=== PATIENT | female | born 1940 | race Caucasian/White ===

== ENCOUNTER 2016-11-21 15:49 | Inpatient (IN) | payer OTHER, MEDICARE ==
[~2016-11-21] VITALS: Ht 165.1 cm; Wt 86.6 kg
--- NOTE | 2016-11-21 16:00 | NUR ---
PT TO ED FROM DR. MEZA OFFICE FOR A 15 LB WEIGHT GAIN AND INCREASING SOB OVER THE PAST 2 WEEKS, HX OF CHF. REPORTING LOGAN INCREASED LASIX AND COUMADIN (COUMADIN DUE TO SUBTHERAPEUTIC INR) AND HAS NOT IMPROVED. PT WEARS HOME 02 AT BASELINE, HAS RECENTLY HAD TO INCREASE IT FROM 2-3LPM INTERMITTENT TO 5 LPM INTERMITTENT, REPORTING HER BASELINE 02 SAT IS USUALLY BETWEEN "90 AND 92".
--- NOTE | 2016-11-21 17:00 | NUR ---
BLOODWORK OBTAINED/SENT TO LAB. PT RESTING COMFORTABLY ON STRETCHER AT PRESENT. DAUGHTER AT BEDSIDE.
[2016-11-21] MEDS ORDERED: FUROSEMIDE40 M1 PO (17:01)
[2016-11-21] MEDS ORDERED: GEMFIBROZIL600 M1 PO (17:03)
[2016-11-21] MEDS ORDERED: HYDROCORTISO453.6 G2 TOP (17:04)
[2016-11-21] MEDS ORDERED: METOPROLOL TAR100 M1 PO (17:04)
[2016-11-21] MEDS ORDERED: LEVOTHYROXINE50 MCG PO (17:04)
[2016-11-21] MEDS ORDERED: COUMADIN5 M2 PO (17:05)
[2016-11-21] MEDS ORDERED: POTASSIUM CHLO20 ME2 PO (17:05)
[2016-11-21] MEDS ORDERED: ZETIA10 M1 PO (17:16)
--- NOTE | 2016-11-21 17:19 | ED DYSPNEA/ASTHMA COMPLAINT ---
History of Present Illness General Chief Complaint: Dyspnea (COPD, CHF, Other) Stated Complaint: SIB DR FORD FOR DIFF BREATHING, +15LBS [id number] Source: patient, family, old records Exam Limitations: no limitations Vital Signs & Intake/Output Vital Signs & Intake/Output Vital Signs Date Time Temp Pulse Resp B/P Pulse O2 O2 Flow FiO2 Ox Delivery Rate 11/21 1931 98.3 97 18 125/89 97 Nasal 4.0L Cannula 11/21 1742 98.7 80 18 112/73 91 Nasal 2.0L Cannula 11/21 1700 96 Nasal 2.0L Cannula 11/21 1600 98.9 81 20 110/74 90 Nasal 5.0L Cannula Allergies Coded Allergies: cefaclor (ANAPHYLAXIS 11/21/16) rabbit dander (THROAT STARTS TO CLOSE, ITCHY EYES, ITCHY NOSE 11/21/16) Reconcile Medications Ezetimibe (Zetia) 10 MG TABLET 1 TAB PO DAILY CHOLESTEROL (Reported) Furosemide 40 MG TABLET 1 TAB PO BID DIURETIC (Reported) Gemfibrozil 600 MG TABLET 1 TAB PO BID CHOLESTEROL (Reported) Levothyroxine Sodium (Unknown Strength) TABLET (Unknown Dose) PO DAILY THYROID (Reported) Metoprolol Tartrate 100 MG TABLET 0.5 TAB PO BID HEART/BP (Reported) Potassium Chloride 20 MEQ TAB.ER.PRT 1 TAB PO DAILY SUPPLEMENT (Reported) Warfarin Sodium (Coumadin) 5 MG TABLET 1 TAB PO DAILY BLOOD THINNER (Reported ) Triage Note: PT TO ED FROM DR. MEZA OFFICE FOR A 15 LB WEIGHT GAIN AND INCREASING SOB OVER THE PAST 2 WEEKS, HX OF CHF. REPORTING LOGAN INCREASED LASIX AND COUMADIN (COUMADIN DUE TO SUBTHERAPEUTIC INR) AND HAS NOT IMPROVED. PT WEARS HOME 02 AT BASELINE, HAS RECENTLY HAD TO INCREASE IT FROM 2-3LPM INTERMITTENT TO 5 LPM INTERMITTENT, REPORTING HER BASELINE 02 SAT IS USUALLY BETWEEN "90 AND 92". Triage Nurses Notes Reviewed? yes Onset: Abrupt Duration: week(s): (2), changing over time, getting worse Timing: recent history Severity: moderate, severe HPI: 76-year-old female comes into emergency room for further evaluation of increasing shortness of breath and weight gain over last 2 weeks. Patient has gained 15 pounds. History of A. fib and valvular problems and COPD. Patient is on 2-2-1/2 L of oxygen normally. Patient reports that when she gets up and ambulates she feels extremely winded and tired and her O2 saturation dropped down to 79%. This is not typical for her. Denies any chest pain. Denies any fever chills. Denies any vomiting. Denies any other associated symptoms. Patient feels swelling in her legs bilaterally as well as in her abdomen. (JODIE BARRERA) Past History Travel History Traveled to [place] past 21 day No Medical History Any Pertinent Medical History? see below for history Cardiovascular: AFIB, CHF, MITRAL VALVE REPLACEMENT Respiratory: COPD History of MRSA: No History of VRE: No History of CDIFF: No Surgical History Surgical History: non-contributory Psychosocial History Who do you live with Patient/Self Services at Home [facility] What is your primary language South African Tobacco Use: Current Not Daily Daily Tobacco Use Amount/Type: =< 4 Cigarettes daily ETOH Use: denies use Illicit Drug Use: denies illicit drug use Family History Family History, If Any: Relation not specified for: No family history of disorders Hx Contributory? No (OJDIE BARRERA) Review of Systems Review of Systems Constitutional: Reports: no symptoms. EENTM: Reports: no symptoms. Respiratory: Reports: see HPI. Cardiovascular: Reports: no symptoms. GI: Reports: no symptoms. Genitourinary: Reports: no symptoms. Musculoskeletal: Reports: no symptoms. Skin: Reports: see HPI. Neurological/Psychological: Reports: no symptoms. Hematologic/Endocrine: Reports: no symptoms. Immunologic/Allergic: Reports: no symptoms. All Other Systems: Reviewed and Negative (JODIE BARRERA) Physical Exam Physical Exam General Appearance: well developed/nourished, alert, awake Head: atraumatic, normal appearance Eyes: Bilateral: normal appearance, EOMI. Ears, Nose, Throat: normal ENT inspection, hearing grossly normal Neck: normal inspection Respiratory: decreased breath sounds, respiratory distress (mild) Cardiovascular: irregularly irregular Gastrointestinal: soft Extremities: normal inspection, normal range of motion Neurologic/Psych: awake, alert, oriented x 3 Skin: intact, normal color Core Measures ACS in differential dx? Yes Severe Sepsis Present: No Septic Shock Present: No (JODIE BARRERA) Progress Differential Diagnosis: asthma, AMI, bronchitis, costochondritis, CHF, COPD, musculoskeletal pain, pericarditis, pulmonary embolism, pneumonia, pneumothorax, rib fracture, unstable angina Plan of Care: Orders Procedure Date/time Status Patient Data 11/21 2022 Active PARTIAL THROMBOPLASTIN TIME 11/21 185 Complete PROTHROMBIN TIME 11/21 185 Complete Add-on Test (ER Only) 11/21 1849 Active TROPONIN LEVEL 11/21 165 Complete COMPREHENSIVE METABOLIC PANEL 11/21 165 Complete CBC WITHOUT DIFFERENTIAL 11/21 165 Complete B-TYPE NATRIURETIC PEP (BNP) 11/21 165 Complete EKG 11/21 1551 Active Laboratory Tests 11/21/16 1920: PT 31.8 H, INR 3.06 H, APTT 46 H 11/21/16 1818: Anion Gap 13, Estimated GFR > 60, BUN/Creatinine Ratio 20.0, Glucose 82, Calcium 9.4, Total Bilirubin 2.7 H, AST 33, ALT 28, Alkaline Phosphatase 113, Troponin I 0.01, Zyt-P-Thwwatqrbwz Pept 5770 H, Total Protein 7.4, Albumin 3.9, Globulin 3.5, Albumin/Globulin Ratio 1.1 11/21/16 1730: CBC w Diff NO MAN DIFF REQ, RBC 4.46, MCV 93.4, MCH 30.7, RDW 16.6 H, MPV 8.1, Gran % 69.8, Lymphocytes % 17.1 L, Monocytes % 11.5 H, Eosinophils % 1.3, Basophils % 0.3, Absolute Granulocytes 5.2, Absolute Lymphocytes 1.3, Absolute Monocytes 0.9 H, Absolute Eosinophils 0.1, Absolute Basophils 0, PUBS MCHC 32.8 L Diagnostic Imaging: Viewed by Me: Radiology Read. Discussed w/RAD: Radiology Read. Radiology Impression: EXAM TYPE: RAD - XRY-PORTABLE CHEST XRAY EXAMINATION: XR PORTABLE CHEST CLINICAL INFORMATION: History of mitral valve replacement. History of pulmonary stenosis. Now shortness of breath. COMPARISON: CT of the chest done 06/21/2016. Last chest x-ray done 01/20/2016. TECHNIQUE: Portable AP semierect view of the chest was obtained. FINDINGS: The heart remains enlarged. The thoracic aorta is tortuous. A mitral valve annuloplasty is present. Sternotomy wires are in place. Emphysematous changes are seen in the upper lobes. Pulmonary vascularity is unchanged. There is no evidence of pulmonary edema or pleural effusion. IMPRESSION: Cardiomegaly. No evidence of cardiac failure. DICTATED BY: MIKALA HUBER MD DATE/TIME DICTATED:11/21/161713 HADOOP CONSULTANT:TRAVIS DATE/TIME TRANSCRIBED:11/21/161713 Initial ED EKG: rate (100), AFIB (JODIE BARRERA) Departure Departure Disposition: STILL A PATIENT Condition: Stable Clinical Impression Primary Impression: CHF exacerbation Secondary Impressions: Hypoxia Referrals: VARSHA CORDERO MD (PCP/Family) Departure Forms: Customer Survey General Discharge Information Admission Note Spoke With: LOGAN BAKER PhD,DEEDEE Silva Documentation of Exam: Documentation of any treatments & extenuating circumstances including Concerns Regarding Discharge (functional status, medication knowledge or non-compliance, living conditions, etc.) that warrant an admission rather than observation: dr ford wants to admit the patient to the ICU to put patient on a dobutamine drip 5 mics per kilogram per minute. Patient will require IV diuresis. Critical care. Repeat labs. Possibly echocardiogram. High risk. Patient do poorly is not patient. Patient seen by Dr. Medina. (JODIE BARRERA) PA/CLINICAL APPEALS AUDITOR Co-Sign Statement Statement: ED Attending supervision documentation- [x] I saw and evaluated the patient. I have also reviewed all the pertinent lab results and diagnostic results. I agree with the findings and the plan of care as documented in the PA's/CLINICAL APPEALS AUDITOR's documentation. [] I have reviewed the ED Record and agree with the PA's/CLINICAL APPEALS AUDITOR's documentation. [] Additions or exceptions (if any) to the PAs/CLINICAL APPEALS AUDITOR's note and plan are summarized below: [] 76-year-old female with interstitial lung disease and congestive heart failure. I have seen and personally examined the patient. On home O2. She is awake alert and oriented 3. She has anasarca with edema up to her abdomen. She is being admitted to the ICU by her health care coordinator Dr. Ford for IV diuresis and further care. (ELIJAH MEDINA DO) Critical Care Note Critical Care Note Critical Care Time: non-applicable (JODIE BARRERA)
--- NOTE | 2016-11-21 17:42 | RADIOLOGY REPORT ---
EXAMINATION: XR PORTABLE CHEST CLINICAL INFORMATION: History of mitral valve replacement. History of pulmonary stenosis. Now shortness of breath. COMPARISON: CT of the chest done 06/21/2016. Last chest x-ray done 01/20/2016. TECHNIQUE: Portable AP semierect view of the chest was obtained. FINDINGS: The heart remains enlarged. The thoracic aorta is tortuous. A mitral valve annuloplasty is present. Sternotomy wires are in place. Emphysematous changes are seen in the upper lobes. Pulmonary vascularity is unchanged. There is no evidence of pulmonary edema or pleural effusion. IMPRESSION: Cardiomegaly. No evidence of cardiac failure.
[2016-11-21 17:47] LABS: ABSOLUTE BASOPHIL COUNT 0 /CUMM (0.0-0.2); ABSOLUTE EOSINOPHIL COUNT 0.1 /CUMM (0.0-0.7); ABSOLUTE GRANULOCYTE CT 5.2 /CUMM (1.4-6.5); ABSOLUTE LYMPH COUNT 1.3 /CUMM (1.2-3.4); ABSOLUTE MONOCYTE COUNT 0.9 /CUMM (0.10-0.60); BASOPHIL % 0.3 % (0.0-2.0); EOSINOPHIL % 1.3 % (0-5); GRANULOCYTE % 69.8 % (42.2-75.2); HEMATOCRIT 41.7 % (37-47); MEAN CORPUSCULAR HGB 30.7 PG (27.0-31.0); MEAN CORPUSCULAR HGB CONC 32.8 G/DL (33.0-37.0); MEAN CORPUSCULAR VOLUME 93.4 FL (81.0-99.0); MEAN PLATELET VOLUME 8.1 FL (7.4-10.4); PLATELET COUNT 250 /CUMM (130-400); RBC DISTRIBUTION WIDTH 16.6 % (11.5-14.5); RED BLOOD CELL CT 4.46 /CUMM (4.20-5.40); WHITE BLOOD CELL COUNT 7.5 /CUMM (4.8-10.8)
--- NOTE | 2016-11-21 18:21 | Cons- Cardiology ---
General Information and HPI Consulting Request Date of Consult: 11/21/16 Requested By: ER History of Present Illness: Eva carries a history of coronary artery disease s/p angioplasty in 1994. She also has a history of rheumatic valvular heart disease and atrial fibrillation. In consideration of multiple episodes of decompensated congestive heart failure in the setting of decreased ejection fraction of 45% and her atrial fibrillation, I felt it was prudent to pursue mitral valve replacement accompanied by a Maze procedure. Her surgery was performed by Dr. Olu Franco on 07/22/11. The procedure consisted of placement of a #29 [place] mechanical heart valve and a Maze procedure. No grafts were placed at that time. Eva has repeated episodes of oxygen desaturation which are associated with shortness of breath and lightheadedness. This shortness of breath has become worse and she now desaturates with speaking and can only walk a couple steps. She has also noted fluid buildup in her legs and abdomen. She was recently admitted to [facility] where she was diuresed and was taken off her Cardizem due to severe bradycardia. Diovan was also stopped due to a pre-renal state. She is on 3 liters of supplemental O2 and raises it to 5L when walking. I did try Sildenafil for pulmonary hypertension but this medication made her feel worse and was stopped. A repeat echocardiogram showed a normal EF of greater than 65% with moderate left ventricular hypertrophy, severe RV dilitation and right atrial dilitation. The left atrium is moderate to severely enlarged. In terms of cardiac valves she has a normal gradient across the prosthetic mitral valve without regurgitation. She has moderate to severe tricuspid regurgitaiton and mild pulmonic regurgitation. Finally, she has severe pulmonary hypertension with a pressure of 78mmHg. I recently performed a right and left heart catheterization. I was not able to cross the pulmonic valve with the balloon and therefore I was not able to obtain the measurements I wanted in regard to primary pulmonary hypertension verse pulmonary hypertension related to left heart disease. In terms of her coronaries she has nonobstructive disease with a 50% proximal and mid LAD lesion and a 70% mid diagonal lesion with a 50% LCX stenosis and luminal irregularities in the dominant RCA. Her EF is 55%. Eva underwent a CATY to assess her RVOT and pulmonic valve to see if there was an obstruction that prevented my crossing the pulmonic valve. Unfortunately, the pulmonic valve could not be well visualized due to artifact from the mechanical mitral valve. Her EF was normal with mild LVH and a dilated right atrium. Trace MR, mild TR and trace AI were noted. She did see Dr. Michelle recently and he did not think the problem was related to her lungs. A couple years ago she reported that, if careful and slow in her activities, she could ride an exercise bike and [place] the [place] without oxygen. She could walk into the water and then wait until her oxygen saturation returned to normal and then she could tread water and in fact felt well in the weightlessness of the water. She does complain of a discontinuity of her ribs and breastbone in the superior aspect which becomes more prominent if she lies on her right side. It should be recalled that in the past I discontinued the patient's Multaq as well as amiodarone since these are drugs that can potentially lead to a worsening of the patient's interstitial lung disease. It was not clear that Multaq was actually effective in maintaining a normal sinus rhythm in any case. Eva's atrial fibrillation is well controlled in terms of heart rate and her INR is currently therapeutic. She has a [place] Carlos mechanical valve so her goal INR is 2.5-3.5. It should be recalled that Eva does have underlying interstitial lung disease , and therefore I discontinued her amiodarone. When I initially started seeing this patient she had copious ventricular ectopy, which seems to have resolved despite being off the amiodarone. Eva also carries a history of severe hypertension for which she underwent renal angiography which was gratifyingly normal. Finally, Eva has a lung mass which seems to be decreasing in size. This is a left lung pleural based opacity along the diaphragmatic surface. There were also some large mediastinal lymph nodes and a borderline enlarged precarinal node. A PET scan was performed which showed no evidence of any hypermetabolic nodules or opacities with the exception of a mildly hypermetabolic precarinal lymph node. It should be recalled that the patient was initially noted to have a bulky mediastinal adenopathy, with 2.3 cm opacity in the left lung, as well as signs of diffuse emphysematous changes when she underwent a CT scan to rule out a PE. Finally a 4.0 cm infrarenal abdominal aortic aneurysm was noted. Allergies/Medications Allergies: Coded Allergies: cefaclor (ANAPHYLAXIS 11/21/16) rabbit dander (THROAT STARTS TO CLOSE, ITCHY EYES, ITCHY NOSE 11/21/16) Home Med List: Ezetimibe (Zetia) 10 MG TABLET 1 TAB PO DAILY CHOLESTEROL (Reported) Furosemide 40 MG TABLET 1 TAB PO BID DIURETIC (Reported) Gemfibrozil 600 MG TABLET 1 TAB PO BID CHOLESTEROL (Reported) Levothyroxine Sodium (Unknown Strength) TABLET (Unknown Dose) PO DAILY THYROID (Reported) Metoprolol Tartrate 100 MG TABLET 0.5 TAB PO BID HEART/BP (Reported) Potassium Chloride 20 MEQ TAB.ER.PRT 1 TAB PO DAILY SUPPLEMENT (Reported) Warfarin Sodium (Coumadin) 5 MG TABLET 1 TAB PO DAILY BLOOD THINNER (Reported ) Review of Systems Review of Systems: A twelve point review of systems was unremarkable. Past History Travel History Traveled to [place] past 21 day No Medical History Cardiovascular: aortic aneurysm (abdominal), AFIB (s/p MAZE), CHF (RV failure), hypertension, hyperlipidemia, mitral stenosis (s/p [facility] Carlos MVR with MAZE), MITRAL VALVE REPLACEMENT, ventricular tachycardia, peripheral vascular disease Respiratory: interstitial lung disease, COPD Gastrointestinal: schatski's ring Renal: questionable renal artery stenosis Endocrine: hyperthyroidism Other Medical Hx: rheumatic fever Surgical History Surgical History: non-contributory Family History Relations & Conditions If Any: Relation not specified for: No family history of disorders Family History Reviewed? Family history of premature coronary artery disease. Psychosocial History Services at Home: [facility] Smoking Status: Former Smoker (quit in 1994) ETOH Use: denies use Illicit Drug Use: denies illicit drug use Exam & Diagnostic Data Vital Signs and I&O Vital Signs Date Time Temp Pulse Resp B/P Pulse O2 O2 Flow FiO2 Ox Delivery Rate 11/21 1742 98.7 80 18 112/73 91 Nasal 2.0L Cannula 11/21 1600 98.9 81 20 110/74 90 Nasal 5.0L Cannula Intake & Output 11/21 1600 11/21 0800 11/21 0000 11/20 1600 11/20 0800 11/20 0000 Intake Total Output Total Balance Patient 180 lb Weight Physical Exam: General: WD/overweight female in mild distress; alert and oriented x 3 HEENT: NC/AT, PERRL, EOMI, clear oropharynx with cyanotic lips Neck: positive JVD with mild right carotid bruit Heart: irregularly irregular without murmur, crisp valve sounds Lungs: clear bilaterally Abdomen: soft, NT, +ve bowel sounds, possible fluid wave Extremities: 2+ bilateral leg edema Assessment/Plan Assessment/Plan * Eva's shortness of breath is primarily due to interstitial lung disease and decreased diffusion capacity that has been noted on pulmonary function tests. We took her off Amiodarone a while ago. She has highly elevated pulmonary pressures and RV dilitation along with severe TR that is the end result of this pulmonary hypertension. I do not see that these pressures are related to the left heart. We will have Dr. Michelle consult. In addition, we will begin a dobutamine drip at 5mcg/kg/min to improve RV contractility while she is aggressively diuresed. Continue supplemental oxygen. Obtain an abdominal ultrasound to assess for ascites. * Doing well in regard to her [place] mitral valve replacement. She does not demonstrate stenosis on her latest echo and does not have mitral regurgitation. Keep INR 2.5-3.0 The patient does have occasional nose bleeds. * No active findings of myocardial ischemia. Will continue to watch risk factors for CAD. * Blood pressure is well controlled on her current drug regimen. * This patient remains in atrial fibrillation with a well controlled heart rate. At times her heart rate does increase but it seems well controlled on Metoprolol 50mg BID which we will continue. The patient will be monitored for any wheezing. She does need to keep her INR in the therapeutic range which is actually 2.5-3.5 due to her prosthetic aortic valve. We will continue her current dose of coumadin. Consult Acknowledgment - Thank you for your consult request.
[2016-11-21 19:49] LABS: PT 31.8 SEC (9.4-12.5); PTT 46 SEC (25-37)
--- NOTE | 2016-11-21 19:54 | NUR ---
PT TO BEDSIDE COMMODE. TOLERTED WELL. 300 ML URINE OUTPUT
--- NOTE | 2016-11-21 20:20 | NUR ---
PT A/O X4. PT APPEARS TO BE RESTING COMFORTBALY. RESP UNLABORED. 94% 3L NC. DENIES SOB AND CP. FAMILY AT BEDSIDE. WILL CONTINUE TO MONITOR.
--- NOTE | 2016-11-21 21:18 | NUR ---
PT BED ASSIGNMENT 107
--- NOTE | 2016-11-21 21:22 | NUR ---
HOUSE STAFF AT BEDSIDE
--- NOTE | 2016-11-21 21:42 | NUR ---
PT COMMODE. TOLERTED WELL
--- NOTE | 2016-11-21 21:47 | History & Physical ---
See Addendum General Information and HPI MD Statement: I have seen and personally examined RAJIV RODARTE and documented this H&P. The patient is a 76 year old F who presented with a patient stated chief complaint of increased leg swelling. Source of Information: patient, DAUGHTER Exam Limitations: no limitations History of Present Illness: 76 year old, very pleasant woman, with a past medical history of coronary artery disease s/p angioplasty in 1994, rheumatic valvular heart disease, atrial fibrillation S/P MAZE, multiple episodes of decompensated congestive heart failure, S/P mitral valve replacement with [facility] mechanical heart valveand Maze procedure on 07/22/11, ILD due to which amiodarone was stopped, pulmonary hypertension, presents with worsening shortness of breath and episodes of decreasing oxygen saturation since the past few weeks; and worsening leg edema since the past 2 weeks. According to the patient and her daughter, Catina, who was at bedside, ashia patient was recently admitted to [facility], for CHf exacerbation and was diuresed leading to hypotension hence her lasix was stopped upon discharge and Cardizem was stopped due to bradycardia. Her Valsartan was also stopped due to RADHA at that time. Since then she has been having worseing leg edema, which has now reached up to her abdomen. According to the patient she started taking her lasix on her own due to worsening swelling since the past week and actually increased to 2 pills of 40 mg since the past 4-5 days after she met dr. Ramirez at his clinic. There have been several changes in her medication since her discharge from [facility] and she thinks they are not optimized as she hasnt been feeling well. She has been havingw orsening ocygen saturation lately with declining level of function. She wears 3 liters of oxygen atr home, but has to increase it to 5 liters even upon walking a few steps. The daughter was very concerned regarding her mother getting diuresis as whenever she gets dehydrated, she starts developing jerky movements of her bosy like hiccups but stronger than those and they only get better with some juice or drinking water. She has been worked up with MRI and CT of the head and siezures have been ruled out. It is unknown exactly what causes these movements but this happened twice in the past few months and every time she was getting aggressively diuresed. The patient currently denies any chest pains, palpitations, N/V/D, fever or chills. She has gained about 15 lbs in the past 2 weeks. Allergies/Medications Allergies: Coded Allergies: cefaclor (ANAPHYLAXIS 11/21/16) rabbit dander (THROAT STARTS TO CLOSE, ITCHY EYES, ITCHY NOSE 11/21/16) Home Med list Ezetimibe (Zetia) 10 MG TABLET 1 TAB PO DAILY CHOLESTEROL (Reported) Furosemide 40 MG TABLET 1 TAB PO BID DIURETIC (Reported) Gemfibrozil 600 MG TABLET 1 TAB PO BID CHOLESTEROL (Reported) Levothyroxine Sodium 50 MCG TABLET 50 MCG PO DAILY THYROID (Reported) Metoprolol Tartrate 100 MG TABLET 0.5 TAB PO BID HEART/BP (Reported) Potassium Chloride 20 MEQ TAB.ER.PRT 1 TAB PO DAILY SUPPLEMENT (Reported) Warfarin Sodium (Coumadin) 5 MG TABLET 1 TAB PO DAILY BLOOD THINNER (Reported ) Compliance With Home Meds: GOOD Past History Travel History Traveled to [place] past 21 day No Medical History Cardiovascular: aortic aneurysm (abdominal), AFIB (s/p MAZE), CHF (RV failure), hypertension, hyperlipidemia, mitral stenosis (s/p [facility] MVR with MAZE), MITRAL VALVE REPLACEMENT ventricular tachycardia peripheral vascular disease Respiratory: interstitial lung disease, COPD Gastrointestinal: schatski's ring Renal: questionable renal artery stenosis Endocrine: hyperthyroidism Other Medical Hx: rheumatic fever History of MRSA: No History of VRE: No History of CDIFF: No Surgical History Surgical History: AVR ECHO Results (as available) Date of last Echo 03/09/15 EF% 65 Past Family/Social History Family History Relations & Conditions if any Relation not specified for: No family history of disorders Psychosocial History Services at Home: [facility] Smoking Status: Former Smoker (quit in 1994) ETOH Use: denies use Illicit Drug Use: denies illicit drug use Living Will? yes Power of Mechanical Technologist/HCP? yes Name of POA/HCP: Linda Sandhu [phone] Functional Ability ADLs Independent: dressing, eating, toileting, bathing. Ambulation: independent IADLs Independent: shopping, housework, finances, food prep, telephone, transportation , medication admin. Review of Systems Review of Systems Constitutional: Reports: see HPI. EENTM: Reports: no symptoms. Cardiovascular: Reports: edema, peripheral edema. Denies: chest pain, orthopena. Respiratory: Reports: see HPI. Denies: orthopnea, short of breath. GI: Reports: no symptoms. Genitourinary: Reports: frequency. Musculoskeletal: Reports: see HPI. Skin: Reports: no symptoms. Neurological/Psychological: Reports: no symptoms. Hematologic/Endocrine: Reports: no symptoms. Exam & Diagnostic Data Last 24 Hrs of Vital Signs/I&O Vital Signs Date Time Temp Pulse Resp B/P Pulse O2 O2 Flow FiO2 Ox Delivery Rate 11/22 0040 143 122/90 11/22 0000 97.9 138 21 148/86 93 Nasal 5.0L Cannula 11/21 2350 93 Nasal 5.0L Cannula 11/21 2309 98.9 101 18 133/88 11/21 2130 97.2 106 20 112/56 94 Nasal 5.0L Cannula 11/21 2030 97.9 98 18 118/69 94 Nasal 5.0L Cannula 11/21 1931 98.3 97 18 125/89 97 Nasal 4.0L Cannula 11/21 1742 98.7 80 18 112/73 91 Nasal 2.0L Cannula 11/21 1700 96 Nasal 2.0L Cannula 11/21 1600 98.9 81 20 110/74 90 Nasal 5.0L Cannula Intake & Output 11/22 0800 11/22 0000 11/21 1600 Intake Total Output Total 800 Balance -800 Output, Urine 800 Patient 187 lb 180 lb Weight Physical Exam General Appearance Alert, Oriented X3, Cooperative, No Acute Distress Skin No Rashes, No Breakdown HEENT Atraumatic, PERRLA, EOMI, Mucous Membr. moist/pink Neck positive JVD, valvular click heard Cardiovascular Normal S1, Normal S2, irregularly irregular Lungs Clear to Auscultation, Normal Air Movement Abdomen Soft, No Tenderness, distended with positive fluid thrill Neurological Normal Speech, Strength at 5/5 X4 Ext, Normal Tone, Sensation Intact Extremities Normal Pulses, bilateral leg edema up to the thighs, pitting 2+ Vascular Pulses Symmetrical Last 24 Hrs of Labs/Juan R: Laboratory Tests 11/21/161919: PT 31.8 H, INR 3.06 H, APTT 46 H 11/21/161817: Anion Gap 13, Estimated GFR > 60, BUN/Creatinine Ratio 20.0, Glucose 82, Calcium 9.4, Total Bilirubin 2.7 H, AST 33, ALT 28, Alkaline Phosphatase 113, Troponin I 0.01, Lxe-R-Gqzsvyglisl Pept 5770 H, Total Protein 7.4, Albumin 3.9, Globulin 3.5, Albumin/Globulin Ratio 1.1 11/21/16 1730: CBC w Diff NO MAN DIFF REQ, RBC 4.46, MCV 93.4, MCH 30.7, RDW 16.6 H, MPV 8.1, Gran % 69.8, Lymphocytes % 17.1 L, Monocytes % 11.5 H, Eosinophils % 1.3, Basophils % 0.3, Absolute Granulocytes 5.2, Absolute Lymphocytes 1.3, Absolute Monocytes 0.9 H, Absolute Eosinophils 0.1, Absolute Basophils 0, PUBS MCHC 32.8 L Microbiology 11/21 2249 UPPER RESP: Surveillance Culture - RECD 11/21 2249 GI: Surveillance Culture - RECD Diagnostic Data EKG Results A fib @ 94, no ST -T wave changes CXR Results The heart remains enlarged. The thoracic aorta is tortuous. A mitral valve annuloplasty is present. Sternotomy wires are in place. Emphysematous changes are seen in the upper lobes. Pulmonary vascularity is unchanged. There is no evidence of pulmonary edema or pleural effusion. IMPRESSION: Cardiomegaly. No evidence of cardiac failure. Assessment/Plan Assessment: 76 year old, very pleasant woman, with a past medical history of coronary artery disease s/p angioplasty in 1994, rheumatic valvular heart disease, atrial fibrillation S/P MAZE, multiple episodes of decompensated congestive heart failure, S/P mitral valve replacement with [facility] mechanical heart valveand Maze procedure on 07/22/11, ILD due to which amiodarone was stopped, pulmonary hypertension, presents with worsening shortness of breath and episodes of decreasing oxygen saturation since the past few weeks; and worsening leg edema since the past 2 weeks, being admitted for fluid over load/shortness of breath. Admit to the ICU Vitals as per ICU protocol 1. Increased Leg Edema with no pulmonary edema: The patient has a history of severe TR, highly elevated pulmonary pressures and ILD which are all controbuting her her increased leg edema till the abdomin. She is not in pulmonary edema with clear lungs and normal CXR. She does have a Pro- BNP of 5770 and increased JVD. - Will keep her in the ICU - According to cardiology will start her on Dobutamine srip at 5mcg/kg/hr for increase cardiac contractility - Will start on Lasix 40 mg IV Daily for now but may have to incraese to BID or even high doses but have to maintain a balance between aggressive diuresis and dehydration as that ? causes her jerky movements that the patient and her daughter are very conecerned about - Will monitor strict I/O - Daily weights - Trops and EKG at 5 am (first negative), no evidence of ACS currently - Follow cardiology 2. A fib, rate controlled: - Will continue with coumadin - INR 3.06 today - Dose in am per INR - Continue Metoprolol 50 mg PO BID, rate in 120s upon arrival to the ICU, was due for her meds 3. Hypothyroidism: - continue with Levothyroxine 50 mcg Po Daily 4. History of CAD: - continue with Gemfibrozil, Zetia and Beta aurea 5. CHF and HHD 6. DVT PPx: Gina 7. Pain pathway 8. FULL CODE status: I had a long discussion about the patients code. She has been DNI in the past admissions and has a living will that says she does not want aggressive measures but as recently her meds have been changed and she will be on this new drip, her and her daugther came to an agreement that in case of an emergency she wants to be rescussitated with CPR and intubation but only for temporary purposes. In case her prognosis is poor or she becomes a vegetable, she should be extubated within 3-5 days, and not kept on life support longer than that. As Ranked By This Provider Problem List: 1. Atrial fibrillation 2. Congestive heart failure 3. Dyslipidemia 4. Hypothyroidism 5. Peripheral vascular disease 6. ILD (interstitial lung disease) 7. Leg edema Core Measures/Miscellaneous Acute Coronary Syndrome ACS Diagnosis: No Cerebrovascular Accident CVA/TIA Diagnosis: No Congestive Heart Failure CHF Diagnosis: Yes Date of most recent Echo: 03/09/15 Last Known EF %: 65 CHIN/ARB for EF <40%: No No CHIN/ARB d/t: Medical Contraindication Venous Thromboembolism VTE Risk Factors: Acute medical illness, Age > 40, CHF or Resp failure, Obesity VTE Prophylaxis Ordered Inpt: Pharm- Warfarin No [facility] VTE prophylaxis d/t: No contraindications No VTE Pharm Prophylaxis d/t: No contraindications VTE Diagnosis: No VTE Type: NONE VTE Confirmed by (Test): NONE Severe Sepsis Severe Sepsis Present: No Septic Shock Septic Shock Present: No Miscellaneous Documentation Attending Case Discussed With: LOGAN BAKER PhD,DEEDEE Silva Primary Care Physician: CONSUELO BAKER,VALIER Patient sees these Specialists Dr. Ramirez, Cardiology Dr. Michelle, Security Operations Center Analyst Level of Patient Care: Critical Care (CRI) Consults Needed: Consulting Specialty: Cardiology Consulting Physician: Dr. Ramirez Reason for Consult: Heart failure Resident Review Statement Resident Statement: examined this patient, discussed with chemistry intern, agreed with chemistry intern, discussed with nursing, discussed with case mgmt Other Findings: Same as Above
--- NOTE | 2016-11-21 22:25 | NUR ---
PT REFUSED TO REMOVE PANTS BEFORE TRANSPORT DU TO BEING VERY COLD.
--- NOTE | 2016-11-21 22:30 | NUR ---
DOBUTIMINE NOT GIVE [facility] MIXING MED. SENIOR PRODUCTION SUPERVISOR AWARE
--- NOTE | 2016-11-21 22:32 | NUR ---
ASSISTED WITH CHANGING IN THE ICU BECAUSE IT WAS WARMER.
[2016-11-22] VITALS: BP 148/86
--- NOTE | 2016-11-22 00:52 | NUR ---
@2330 PT ARRIVED TO UNIT AWAKE AND ORIENTED X3. HR AFIB ON MONITOR RATE 90'S TO LOW 100'S. PT ON 5LNC [id number]%, LUNGS CLEAR, EXSOB NOTED. DOBUTAMINE DRIP TO BE STARTED PER MD BRANDON MCGILL WHO SPOKE WITH HEAD COACH AND STATED OK TO RUN VIA PERIPHERAL LINE, AND NO NEED FOR CENTRAL LINE. PT VOIDED 50ML OF CLEAR YELLOW URINE WITHOUT DIFFICULTY. ABDOMEN VERY DISTENDED PER PT HAS INCREASED OVER LAST COUPLE WEEKS, BLLE +2 EDEMA, DRY SKIN BUT INTACT. PT WITH NO C/O PAIN AT THIS TIME. DAUGHTER AT BEDSIDE DURING INTERVIEW. CALL SANDOVAL INSTRUCTIONS GIVEN, PT VERBALIZED UNDERSTANDING.
--- NOTE | 2016-11-22 01:02 | NUR ---
@3964 NOTIFIED MD BRANDON MCGILL OF PT HEAR RATE 130'S TO 140'S, PT TAKES LOPRESSOR 50MG BID AND HAS NOT TAKEN NIGHT DOSE. MD PABLO ORDER WILL REASSESS.. PT WITH NO COMPLAINTS AT THIS TIME.
[2016-11-22 05:23] LABS: PT 34.1 SEC (9.4-12.5)
[2016-11-22 05:26] LABS: ABSOLUTE BASOPHIL COUNT 0 /CUMM (0.0-0.2); ABSOLUTE EOSINOPHIL COUNT 0.1 /CUMM (0.0-0.7); ABSOLUTE GRANULOCYTE CT 6.2 /CUMM (1.4-6.5); ABSOLUTE MONOCYTE COUNT 0.8 /CUMM (0.10-0.60); BASOPHIL % 0.4 % (0.0-2.0); EOSINOPHIL % 0.7 % (0-5); GRANULOCYTE % 76.3 % (42.2-75.2); HEMATOCRIT 38.7 % (37-47); MEAN CORPUSCULAR HGB 30.9 PG (27.0-31.0); MEAN CORPUSCULAR HGB CONC 32.8 G/DL (33.0-37.0); MEAN CORPUSCULAR VOLUME 94.2 FL (81.0-99.0); MEAN PLATELET VOLUME 7.9 FL (7.4-10.4); PLATELET COUNT 228 /CUMM (130-400); RBC DISTRIBUTION WIDTH 16.2 % (11.5-14.5); RED BLOOD CELL CT 4.11 /CUMM (4.20-5.40); WHITE BLOOD CELL COUNT 8.1 /CUMM (4.8-10.8)
--- NOTE | 2016-11-22 07:19 | PN- Resident CRCU ---
Subjective HPI/CRCU Issues: No acute events overnight. Patient seen and examined this morning. She feels improved but contiunes to have shortness of breath. She remains on 5 L NC. Objective Vital Signs & I&O Last 8 Hrs of Vitals and I&O: Vital Signs Date Time Temp Pulse Resp B/P Pulse O2 O2 Flow FiO2 Ox Delivery Rate 11/22 0800 97.4 109 24 110/70 91 Nasal 5.0L Cannula 11/22 0800 92 Nasal 5.0L Cannula 11/22 0400 93 Nasal 5.0L Cannula 11/22 0040 143 122/90 11/22 0000 97.9 138 21 148/86 93 Nasal 5.0L Cannula 11/21 2350 93 Nasal 5.0L Cannula 11/21 2309 98.9 101 18 133/88 11/21 2130 97.2 106 20 112/56 94 Nasal 5.0L Cannula 11/21 2030 97.9 98 18 118/69 94 Nasal 5.0L Cannula 11/21 1931 98.3 97 18 125/89 97 Nasal 4.0L Cannula 11/21 1742 98.7 80 18 112/73 91 Nasal 2.0L Cannula 11/21 1700 96 Nasal 2.0L Cannula 11/21 1600 98.9 81 20 110/74 90 Nasal 5.0L Cannula Exam General Appearance: no apparent distress, alert, awake, comfortable Head: atraumatic, normal appearance Ears, Nose, Throat: moist mucus membranes Neck: JVD Respiratory: lungs clear Cardiovascular: irregularly irregular, no murmurs, rubs or galoops Gastrointestinal: soft, non-tender, positive bowel sounds, distended Extremities: bilateral lower extremities with 2+ edema Cranial Nerves: grossly normal Skin: normal color, warm/dry Current Medications: Current Medications Sig/Nicole Start time Last Medication Dose Route Stop Time Status Admin Acetaminophen 650 MG Q6P PRN 11/22 0230 AC PO Dobutamine HCl 250 MG Q24H 11/21 2199 AC 11/21 Dextrose/Water 250 ML IV 230 Ezetimibe 10 MG DAILY 11/22 1000 AC PO Furosemide 40 MG DAILY 11/22 1000 DC IV Furosemide 80 MG BID 11/22 1000 AC IV Furosemide 0 .STK-MED ONE 11/21 1917 DC IV Furosemide 40 MG ONCE ONE 11/21 1914 DC 11/21 IV 02/20 1916 1931 Gemfibrozil 600 MG BID 11/22 1000 AC PO Levothyroxine Sodium 0.05 MG DAILY AC 11/22 0700 AC 11/22 PO 0602 Magnesium Oxide 400 MG ONE ONE 11/22 0815 DC PO 11/22 0816 Metoprolol Tartrate 50 MG .STK-MED ONE 11/22 0036 DC PO 11/22 0037 Metoprolol Tartrate 50 MG BID 11/22 0030 AC 11/22 PO 0040 Oxycodone/ 1 TAB Q6P PRN 11/22 0230 AC Acetaminophen PO Oxycodone/ 2 TAB Q6P PRN 11/22 0230 AC Acetaminophen PO Results Results: Laboratory Tests 11/22 11/21 11/21 0435 1920 1818 Chemistry Sodium (137 - 145 mmol/L) 130 L 130 L Potassium (3.5 - 5.1 mmol/L) 4.0 4.2 Chloride (98 - 107 mmol/L) 94 L 93 L Carbon Dioxide (22 - 30 mmol/L) 24 24 Anion Gap (5 - 16) 12 13 BUN (7 - 17 mg/dL) 18 H 16 Creatinine (0.5 - 1.0 mg/dL) 0.9 0.8 Estimated GFR (>60 ml/min) > 60 > 60 BUN/Creatinine Ratio (7 - 25 %) 20.0 Glucose (65 - 99 mg/dL) 104 H 82 Calcium (8.4 - 10.2 mg/dL) 9.1 9.4 Phosphorus (2.5 - 4.5 mg/dL) 4.1 Magnesium (1.6 - 2.3 mg/dL) 1.7 Total Bilirubin (0.2 - 1.3 mg/dL) 2.5 H 2.7 H AST (14 - 36 U/L) 29 33 ALT (9 - 52 U/L) 26 28 Alkaline Phosphatase (<127 U/L) 113 Troponin I (< 0.11 ng/ml) 0.02 0.01 Tpo-K-Wdnynmvghrb Pept (<125 pg/mL) 5770 H Total Protein (6.3 - 8.2 g/dL) 7.4 Albumin (3.5 - 5.0 g/dL) 3.4 L 3.9 Globulin (1.9 - 4.2 gm/dL) 3.5 Albumin/Globulin Ratio (1.1 - 2.2 %) 1.1 Coagulation PT (9.4 - 12.5 SEC) 34.1 H 31.8 H INR (0.90 - 1.19) 3.29 H 3.06 H APTT (25 - 37 SEC) 46 H Hematology CBC w Diff NO MAN DIFF REQ WBC (4.8 - 10.8 /CUMM) 8.1 RBC (4.20 - 5.40 /CUMM) 4.11 L Hgb (12.0 - 16.0 G/DL) 12.7 Hct (37 - 47 %) 38.7 MCV (81.0 - 99.0 FL) 94.2 MCH (27.0 - 31.0 PG) 30.9 RDW (11.5 - 14.5 %) 16.2 H Plt Count (130 - 400 /CUMM) 228 MPV (7.4 - 10.4 FL) 7.9 Gran % (42.2 - 75.2 %) 76.3 H Lymphocytes % (20.5 - 51.1 %) 12.1 L Monocytes % (1.7 - 9.3 %) 10.5 H Eosinophils % (0 - 5 %) 0.7 Basophils % (0.0 - 2.0 %) 0.4 Absolute Granulocytes (1.4 - 6.5 /CUMM) 6.2 Absolute Lymphocytes (1.2 - 3.4 /CUMM) 1.0 L Absolute Monocytes (0.10 - 0.60 /CUMM) 0.8 H Absolute Eosinophils (0.0 - 0.7 /CUMM) 0.1 Absolute Basophils (0.0 - 0.2 /CUMM) 0 PUBS MCHC (33.0 - 37.0 G/DL) 32.8 L 11/21 1730 Hematology CBC w Diff NO MAN DIFF REQ WBC (4.8 - 10.8 /CUMM) 7.5 RBC (4.20 - 5.40 /CUMM) 4.46 Hgb (12.0 - 16.0 G/DL) 13.7 Hct (37 - 47 %) 41.7 MCV (81.0 - 99.0 FL) 93.4 MCH (27.0 - 31.0 PG) 30.7 RDW (11.5 - 14.5 %) 16.6 H Plt Count (130 - 400 /CUMM) 250 MPV (7.4 - 10.4 FL) 8.1 Gran % (42.2 - 75.2 %) 69.8 Lymphocytes % (20.5 - 51.1 %) 17.1 L Monocytes % (1.7 - 9.3 %) 11.5 H Eosinophils % (0 - 5 %) 1.3 Basophils % (0.0 - 2.0 %) 0.3 Absolute Granulocytes (1.4 - 6.5 /CUMM) 5.2 Absolute Lymphocytes (1.2 - 3.4 /CUMM) 1.3 Absolute Monocytes (0.10 - 0.60 /CUMM) 0.9 H Absolute Eosinophils (0.0 - 0.7 /CUMM) 0.1 Absolute Basophils (0.0 - 0.2 /CUMM) 0 PUBS MCHC (33.0 - 37.0 G/DL) 32.8 L US Findings: Ascites is visualized in the right upper quadrant. 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 Problem List: 1. ILD (interstitial lung disease) 2. Moderate to severe pulmonary hypertension 3. (HFpEF) heart failure with preserved ejection fraction 4. CHF exacerbation 5. Rheumatic mitral stenosis 6. HTN (hypertension) 7. Atrial fibrillation 8. Hypothyroidism 9. HLD (hyperlipidemia) 10. CAD S/P percutaneous coronary angioplasty Pain Ratin Tomorrow's Labs & Rationales: CBC and ICU bundle (ICU patient) Plan Respiratory: #Acute on chronic hypoxemic respiratory failure: It is felt that current SOB is primarily due to ILD, with decreased diffusion capacity noted on recent PFTs, which may have ultimately resulted in severe pulmonary HTN and right-sided heart failure. Subjective improvement in symptoms today. Remains on 5 L NC, significantly increased from her home oxygen requirement of 3 L. * Pulmonology consulted. Appreciate their recs. * Continue to provide supplemental oxygen as needed to keep SpO2> 92%. Infectious Diseases: Afebrile and without leukocytosis. No signs or symptoms of infection. Cardiovascular: #Acute on chronic HFpEF with severe pulmonary HTN: [place] to be the primary reason underlying patient's acute on chronic hypoxemic respiratory failure in the presence of known history of right-sided heart failure with severe pulmonary HTN , RV dilatation and severe TR. Most recent ECHO with LVEF of 55%. Recently underwent right and left heart catheterization to see if pulmonary HTN is primary or 2/2 left heart disease which was inconclusive. It is suspected that severe pulmonary HTN is 2/2 ILD. RUQ US this admission showed ascites consistent with right-sided heart failure. * Cardiology following. Appreciate their recs. * Continue to monitor strict I/Os and daily weights. * Continue dobutamine IV drip for another 24 hours. * Increase furosemide to 80 mg IV BID. * Continue prior to admission metoprolol 50 mg PO BID. #HTN: Blood pressures well-controlled this admission. * Continue metoprolol and furosemide. #Atrial fibrillation: Remains in atrial fibrillation with well-controlled rate. Takes warfarin 5 mg daily. * Continue warfarin. * Continue prior to admission metoprolol 50 mg PO BID. Monitor for wheezing. #CAD: S/p PCI with stent placement in 1994. No evidence of CO this admission. EKG with no ST-T wave abnormalities. Troponin x2 negative. * NTD. #HLD: * Continue ezetimibe 10 mg daily and gemfibrozil 600 mg PO BID. Hematology: Takes warfarin 5 mg daily. INR 3.29 this AM. * Continue to monitor INR daily and dose warfarin accordingly to keep INR between 2.5 and 3 given prosthetic aortic valve. * Hold INR this evening given supratherapeutic INR and restart at a lower dose tomorrow. Metabolic: #Hypothyroidism: * Continue levothyroxine 50 mcg daily. Alimentary: CHF Diet Neurological: AAO x3. No issues. DVT/Prophylaxis: pharmacological Code Status: Full Code
[2016-11-22 08:00] VITALS: BP 110/70
--- NOTE | 2016-11-22 08:42 | NUR ---
@0800-PT AWAKE, ALERT AND ORIENTED. CALM AND COOP. [place]AN. FOLLOWS COMMANDS. DENIES PAIN. CONT ON 5LNC. O2SAT 91%. DIM BS TO BASES WITH FINE CRACKLES TO R SIDE. CONT ON IV LASIX DAILY AND DOBUTAMINE GTT AT 5MCG/KG/MIN. AFIB HR 90-110. BP STABLE. DENIES SOB/CP AT THIS TIME. CHF DIET PROVIDED-TIANNA WELL. PT TO HAVE ABD US THIS AM TO ASSESS FOR ASCITIES. OOB ASSIST OF 1 TO BSC. SKIN INTACT, +3 BLE EDEMA, DRY AND DISCOLORED. ALPS IN PLACE WHILE IN BED. CONT TO MONITOR CLOSELY. CALL SANDOVAL WITHIN REACH.
--- NOTE | 2016-11-22 10:33 | ULTRASOUND REPORT ---
EXAMINATION: US ABDOMEN LIMITED CLINICAL INFORMATION: Check for ascites. Swelling and extensive edema COMPARISON: None TECHNIQUE: Real-time imaging of the 4 quadrants of the abdomen to assess for ascites. FINDINGS/IMPRESSION: Ascites is visualized in the right upper quadrant.
--- NOTE | 2016-11-22 11:15 | PN- Cardiology ---
Subjective Subjective: * This patient has improved breathing. * Only mild diuresis at this point in time. Objective Vital Signs and I&Os Vital Signs Date Time Temp Pulse Resp B/P Pulse O2 O2 Flow FiO2 Ox Delivery Rate 11/22 1011 121 145/80 11/22 0800 97.4 109 24 110/70 91 Nasal 5.0L Cannula 11/22 0800 92 Nasal 5.0L Cannula 11/22 0400 93 Nasal 5.0L Cannula 11/22 0040 143 122/90 11/22 0000 97.9 138 21 148/86 93 Nasal 5.0L Cannula 11/21 2350 93 Nasal 5.0L Cannula 11/21 2309 98.9 101 18 133/88 11/21 2130 97.2 106 20 112/56 94 Nasal 5.0L Cannula 11/21 2030 97.9 98 18 118/69 94 Nasal 5.0L Cannula 11/21 1931 98.3 97 18 125/89 97 Nasal 4.0L Cannula 11/21 1742 98.7 80 18 112/73 91 Nasal 2.0L Cannula 11/21 1700 96 Nasal 2.0L Cannula 11/21 1600 98.9 81 20 110/74 90 Nasal 5.0L Cannula Intake & Output 11/22 1600 11/22 0800 11/22 0000 11/21 1600 11/21 0800 11/21 0000 Intake Total 269 Output Total 200 800 Balance 69 -800 Intake, IV 0 Intake, Oral 269 Number 0 Bowel Movements Output, Urine 200 800 Patient 185 lb 187 lb 180 lb Weight Physical Exam: General: WD/ WN female in NAD; alert and oriented x 3 Neck: positive JVD Heart: irregularly irregular Lungs: clear bilaterally Extremities: 1+ bipedal edema Assessment/Plan Assessment/Plan * Patient is doing a bit better. Continue dobutamine drip for another 24 hours. Increase lasix to 80mg IV BID. * Hold coumadin for today and then restart at 1mg lower dose tomorrow. Continue telemetry? Yes
--- NOTE | 2016-11-22 14:28 | NUR ---
@1400-PT NOTED TO HAVE 2ND EPISODE OF SEVERE CRAMPING, SHOOTING PAIN INTO R FOOT RADIATING TO ANKLE AND SKIN. WARMED RICE SOCK APPLIED AND MASSAGED. HOUSESTAFF CALLED TO BEDSIDE. PT MEDICATED WITH PERCOCET 2 TABS AT THIS TIME. PT HAS HX PVD-ULTRASOUND TO RLE BEING ORD PER HOUSESTAFF.
--- NOTE | 2016-11-22 15:23 | Cons- Pulmonary ---
General Information and HPI Consulting Request Date of Consult: 11/22/16 Requested By: Lindsey Reason for Consult: Shortness of breath History of Present Illness: Patient is 76-year-old who has COPD on chronic oxygen admitted with increasing edema after having her Lasix stopped. By report she has evidence of severe pulmonary hypertension though her last cardiac ultrasound in January 2016 showed no evidence of pulmonary hypertension. Prior cardiac ultrasounds have demonstrated pulmonary hypertension Chart reports evidence of interstitial lung disease though no CAT scans from 2012 2014 and 2016 show evidence of interstitial lung disease. It does not appear she is had a high-resolution CT. She is being diuresed with Lasix and dobutamine her oxygen requirements are increased recent CTA is negative for pulmonary emboli Allergies/Medications Allergies: Coded Allergies: cefaclor (ANAPHYLAXIS 11/21/16) rabbit dander (THROAT STARTS TO CLOSE, ITCHY EYES, ITCHY NOSE 11/21/16) Home Med List: Ezetimibe (Zetia) 10 MG TABLET 1 TAB PO DAILY CHOLESTEROL (Reported) Furosemide 40 MG TABLET 1 TAB PO BID DIURETIC (Reported) Gemfibrozil 600 MG TABLET 1 TAB PO BID CHOLESTEROL (Reported) Levothyroxine Sodium 50 MCG TABLET 50 MCG PO DAILY THYROID (Reported) Metoprolol Tartrate 100 MG TABLET 0.5 TAB PO BID HEART/BP (Reported) Potassium Chloride 20 MEQ TAB.ER.PRT 1 TAB PO DAILY SUPPLEMENT (Reported) Warfarin Sodium (Coumadin) 5 MG TABLET 1 TAB PO DAILY BLOOD THINNER (Reported ) Review of Systems Review of Systems Constitutional: Denies: chills, fever. Cardiovascular: Reports: edema, peripheral edema. Denies: chest pain. Respiratory: Reports: short of breath. Denies: cough, hemoptysis. Past History Travel History Traveled to [place] past 21 day No Medical History Blood Transfusion Hx: Yes Neurological: NONE EENT: NONE Cardiovascular: aortic aneurysm (abdominal), AFIB (s/p MAZE), CHF (RV failure), hypertension, hyperlipidemia, mitral stenosis (s/p [facility] MVR with MAZE), MITRAL VALVE REPLACEMENT ventricular tachycardia peripheral vascular disease Respiratory: interstitial lung disease, COPD Gastrointestinal: schatski's ring Hepatic: NONE Renal: questionable renal artery stenosis Musculoskeletal: NONE Psychiatric: NONE Endocrine: hyperthyroidism Blood Disorders: NONE Cancer(s): NONE INSULATION WORKER FURNACE INSTALLER/Reproductive: NONE Other Medical Hx: rheumatic fever Surgical History Surgical History: AVR Family History Relations & Conditions If Any: Relation not specified for: No family history of disorders Psychosocial History Where Do You Live? Home Services at Home: [facility] Smoking Status: Former Smoker (quit in 1994) ETOH Use: denies use Illicit Drug Use: denies illicit drug use Living Will? yes Power of Internal Auditor/HCP? yes Name of POA/HCP: Linda Sandhu [phone] Functional Ability ADLs Independent: dressing, eating, toileting, bathing. Ambulation: independent IADLs Independent: shopping, housework, finances, food prep, telephone, transportation , medication admin. ECHO Results (as available) Date of last Echo 03/09/15 EF% 65 Exam & Diagnostic Data Last 24 Hrs of Vital Signs/I&O Vital Signs Date Time Temp Pulse Resp B/P Pulse O2 O2 Flow FiO2 Ox Delivery Rate 11/22 1200 94 Nasal 5.0L Cannula 11/22 1011 121 145/80 11/22 0800 97.4 109 24 110/70 91 Nasal 5.0L Cannula 11/22 0800 92 Nasal 5.0L Cannula 11/22 0400 93 Nasal 5.0L Cannula 11/22 0040 143 122/90 11/22 0000 97.9 138 21 148/86 93 Nasal 5.0L Cannula 11/21 2350 93 Nasal 5.0L Cannula 11/21 2309 98.9 101 18 133/88 11/21 2130 97.2 106 20 112/56 94 Nasal 5.0L Cannula 11/21 2030 97.9 98 18 118/69 94 Nasal 5.0L Cannula 11/21 1931 98.3 97 18 125/89 97 Nasal 4.0L Cannula 11/21 1742 98.7 80 18 112/73 91 Nasal 2.0L Cannula 11/21 1700 96 Nasal 2.0L Cannula 11/21 1600 98.9 81 20 110/74 90 Nasal 5.0L Cannula Intake & Output 11/22 1600 11/22 0800 11/22 0000 Intake Total 693.3 269 Output Total 2350 200 800 Balance -1656.7 69 -800 Intake, IV 233.3 0 Intake, Oral 460 269 Number 0 0 Bowel Movements Output, Urine 2350 200 800 Patient 185 lb 187 lb Weight Patient is comfortable on nasal oxygen saturation 5 L is 94%. It is no jugular venous distention exam for chest shows diminished breath sounds are no wheezes or crackles cardiac exam shows an irregular rhythm abdominal exam shows evidence of anasarca her extremities have symmetrical 3-4+ brawny edema she has diuresed over 2 L this morning Last 48 Hrs of Labs/Juan R: Laboratory Tests 11/22/16 0435: Anion Gap 12, Estimated GFR > 60, Glucose 104 H, Calcium 9.1, Phosphorus 4.1, Magnesium 1.7, Total Bilirubin 2.5 H, AST 29, ALT 26, Troponin I 0.02, Albumin 3.4 L, PT 34.1 H, INR 3.29 H, CBC w Diff NO MAN DIFF REQ, RBC 4.11 L, MCV 94.2, MCH 30.9, RDW 16.2 H, MPV 7.9, Gran % 76.3 H, Lymphocytes % 12.1 L, Monocytes % 10.5 H, Eosinophils % 0.7, Basophils % 0.4, Absolute Granulocytes 6.2, Absolute Lymphocytes 1.0 L, Absolute Monocytes 0.8 H, Absolute Eosinophils 0.1, Absolute Basophils 0, PUBS MCHC 32.8 L 11/21/16 1920: PT 31.8 H, INR 3.06 H, APTT 46 H 11/21/16 1818: Anion Gap 13, Estimated GFR > 60, BUN/Creatinine Ratio 20.0, Glucose 82, Calcium 9.4, Total Bilirubin 2.7 H, AST 33, ALT 28, Alkaline Phosphatase 113, Troponin I 0.01, Tmc-C-Lmtabmwozyx Pept 5770 H, Total Protein 7.4, Albumin 3.9, Globulin 3.5, Albumin/Globulin Ratio 1.1 11/21/16 1730: CBC w Diff NO MAN DIFF REQ, RBC 4.46, MCV 93.4, MCH 30.7, RDW 16.6 H, MPV 8.1, Gran % 69.8, Lymphocytes % 17.1 L, Monocytes % 11.5 H, Eosinophils % 1.3, Basophils % 0.3, Absolute Granulocytes 5.2, Absolute Lymphocytes 1.3, Absolute Monocytes 0.9 H, Absolute Eosinophils 0.1, Absolute Basophils 0, PUBS MCHC 32.8 L Assessment/Plan Impression/Plan: 76-year-old with COPD and pulmonary hypertension in the setting of rheumatic heart disease and mitral valve replacement. Multiple CT scans do not show evidence of interstitial lung disease. Unfortunately her catheterization was not able to determine whether her pulmonary hypertension was cardiac in origin, she appears to have significant right heart failure, she does have a pulmonary nodule which will require follow-up Recommendations: High-resolution CT scan of the chest once acute problems have stabilized. Outpatient sleep study to exclude obstructive sleep apnea. Continue negative fluid balance and Taper FiO2 his saturations allow. She is therapeutically anticoagulated. Follow-up CT scan of pulmonary nodule as outpatient. Consult Acknowledgment - Thank you for your consult request.
[2016-11-22 16:00] VITALS: BP 122/74
--- NOTE | 2016-11-22 18:49 | NUR ---
@1700-O2SAT 88%-NC INCREASED TO 6L. PT DENIES INCREASED SOB. @1800-PT HAD 2 EPISODES OF PROJECTILE VOMITING, APPROX 300ML EACH TIME. PT DENIES ABD PAIN AND MEDICATED WITH IV ZOFRAN ORD. CONT TO MONITOR CLOSELY. CALL SANDOVAL WITHIN REACH.
[2016-11-23] VITALS: BP 118/74
[2016-11-23 06:02] LABS: ABSOLUTE BASOPHIL COUNT 0 /CUMM (0.0-0.2); ABSOLUTE EOSINOPHIL COUNT 0.1 /CUMM (0.0-0.7); ABSOLUTE LYMPH COUNT 0.8 /CUMM (1.2-3.4); ABSOLUTE MONOCYTE COUNT 0.6 /CUMM (0.10-0.60); BASOPHIL % 0.2 % (0.0-2.0); EOSINOPHIL % 1.7 % (0-5); GRANULOCYTE % 76.6 % (42.2-75.2); HEMATOCRIT 38.5 % (37-47); MEAN CORPUSCULAR HGB 30.8 PG (27.0-31.0); MEAN CORPUSCULAR HGB CONC 32.7 G/DL (33.0-37.0); MEAN CORPUSCULAR VOLUME 94.4 FL (81.0-99.0); MEAN PLATELET VOLUME 7.9 FL (7.4-10.4); PLATELET COUNT 189 /CUMM (130-400); RBC DISTRIBUTION WIDTH 16.3 % (11.5-14.5); RED BLOOD CELL CT 4.08 /CUMM (4.20-5.40); WHITE BLOOD CELL COUNT 6.6 /CUMM (4.8-10.8)
[2016-11-23 06:13] LABS: PT 32.8 SEC (9.4-12.5)
--- NOTE | 2016-11-23 07:12 | PN- Resident CRCU ---
Subjective HPI/CRCU Issues: Patient had two episodes of projectile vomiting last night. She remained on IV dobutamine drip and Lasix with excellent diuresis. Patient was seen and examined this morning. She feels that her breathing is improved. She denies nausea or vomiting. She is currently on 6 L NC. Dobutamine drip was initially discontinued this morning but was re-started per Dr. Portillo's recommendations as her SBP dropped down to 80s along with decrease in her urine output. Objective Vital Signs & I&O Last 8 Hrs of Vitals and I&O: Vital Signs Date Time Temp Pulse Resp B/P Pulse O2 O2 Flow FiO2 Ox Delivery Rate 11/23 1200 91 Nasal 6.0L Cannula 11/23 0957 90 112/82 11/23 0800 95 Nasal 6.0L Cannula 11/23 0800 96.7 107 17 98/76 93 Nasal 6.0L Cannula 11/23 0655 94 107/66 11/23 0354 97 Nasal 7.0L Cannula 11/23 0000 97.4 100 17 118/74 93 Nasal 7.0L Cannula 11/23 0000 93 Nasal 7.0L Cannula 11/22 2229 78 146/115 11/22 2037 94 124/74 11/22 2000 91 Nasal 7.0L Cannula 11/22 1600 92 Nasal 5.0L Cannula 11/22 1600 97.3 81 20 122/74 92 Nasal 5.0L Cannula Intake & Output 11/23 1600 Intake Total Output Total Balance Patient 84.538 kg Weight Exam General Appearance: no apparent distress, alert, awake, comfortable Head: atraumatic, normal appearance Ears, Nose, Throat: moist mucus membranes Neck: JVD Respiratory: lungs clear Cardiovascular: irregularly irregular Gastrointestinal: soft, non-tender, positive bowel sounds Extremities: bilateral lower extremities with 2+ edema Cranial Nerves: grossly normal Skin: intact, warm/dry Current Medications: Current Medications Sig/Nicole Start time Last Medication Dose Route Stop Time Status Admin Acetaminophen 650 MG Q6P PRN 11/22 0230 AC PO Diclofenac Sodium 1 SANDRA 4 TIMES/DAY 11/22 1530 AC 11/23 TOP 0957 Digoxin 0.25 MG 1700 11/23 1700 AC PO Dobutamine HCl 250 MG Q24H 11/21 2200 DC 11/23 Dextrose/Water 250 ML IV 0655 Ezetimibe 10 MG DAILY 11/22 1000 AC 11/23 PO 0957 Furosemide 80 MG DAILY 11/23 1016 AC PO Furosemide 80 MG BID 11/22 1000 DC 11/22 IV 1942 Gemfibrozil 600 MG BID 11/22 1000 AC 11/23 PO 0957 Levothyroxine Sodium 0.05 MG DAILY AC 11/22 0700 AC 11/23 PO 0547 Magnesium Oxide 400 MG ONE ONE 11/23 0715 DC 11/23 PO 11/23 0716 0957 Metoprolol Tartrate 50 MG BID 11/22 0030 AC 11/23 PO 0957 Ondansetron HCl 4 MG ONCE ONE 11/22 1830 DC 11/22 IV 11/22 183 1830 Oxycodone/ 1 TAB Q6P PRN 11/22 0230 AC Acetaminophen PO Oxycodone/ 2 TAB Q6P PRN 11/22 0230 AC 11/22 Acetaminophen PO 1419 Potassium Chloride 40 MEQ ONCE ONE 11/23 0715 DC 11/23 PO 11/23 0716 0957 Warfarin Sodium 4 MG COUMADIN 1700 ONE 11/23 1700 AC PO 11/23 1701 Warfarin Sodium 2.5 MG COUMADIN 1700 ONE 11/22 1700 CAN PO 11/22 1701 Results Results: Laboratory Tests 11/23 0430 Chemistry Sodium (137 - 145 mmol/L) 130 L Potassium (3.5 - 5.1 mmol/L) 3.6 Chloride (98 - 107 mmol/L) 92 L Carbon Dioxide (22 - 30 mmol/L) 28 Anion Gap (5 - 16) 11 BUN (7 - 17 mg/dL) 17 Creatinine (0.5 - 1.0 mg/dL) 0.9 Estimated GFR (>60 ml/min) > 60 Glucose (65 - 99 mg/dL) 110 H Calcium (8.4 - 10.2 mg/dL) 8.5 Phosphorus (2.5 - 4.5 mg/dL) 4.3 Magnesium (1.6 - 2.3 mg/dL) 1.8 Total Bilirubin (0.2 - 1.3 mg/dL) 2.2 H AST (14 - 36 U/L) 30 ALT (9 - 52 U/L) 25 Albumin (3.5 - 5.0 g/dL) 3.2 L Coagulation PT (9.4 - 12.5 SEC) 32.8 H INR (0.90 - 1.19) 3.16 H Hematology CBC w Diff NO MAN DIFF REQ WBC (4.8 - 10.8 /CUMM) 6.6 RBC (4.20 - 5.40 /CUMM) 4.08 L Hgb (12.0 - 16.0 G/DL) 12.6 Hct (37 - 47 %) 38.5 MCV (81.0 - 99.0 FL) 94.4 MCH (27.0 - 31.0 PG) 30.8 RDW (11.5 - 14.5 %) 16.3 H Plt Count (130 - 400 /CUMM) 189 MPV (7.4 - 10.4 FL) 7.9 Gran % (42.2 - 75.2 %) 76.6 H Lymphocytes % (20.5 - 51.1 %) 12.1 L Monocytes % (1.7 - 9.3 %) 9.4 H Eosinophils % (0 - 5 %) 1.7 Basophils % (0.0 - 2.0 %) 0.2 Absolute Granulocytes (1.4 - 6.5 /CUMM) 5.0 Absolute Lymphocytes (1.2 - 3.4 /CUMM) 0.8 L Absolute Monocytes (0.10 - 0.60 /CUMM) 0.6 Absolute Eosinophils (0.0 - 0.7 /CUMM) 0.1 Absolute Basophils (0.0 - 0.2 /CUMM) 0 PUBS MCHC (33.0 - 37.0 G/DL) 32.7 L Impression/Plan Impression/Problem List Impression: 76 y/o F with PMHx of CAD s/p antigoplasty in 1994, 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 Problem List: 1. CAD S/P percutaneous coronary angioplasty 2. HLD (hyperlipidemia) 3. HTN (hypertension) 4. (HFpEF) heart failure with preserved ejection fraction 5. Moderate to severe pulmonary hypertension 6. COPD (chronic obstructive pulmonary disease) 7. Right heart failure 8. CHF exacerbation 9. Acute hypoxemic respiratory failure Pain Ratin Tomorrow's Labs & Rationales: CBC and ICU bundle (ICU patient) INR (patient is on warfarin) Plan Respiratory: #Acute on chronic hypoxemic respiratory failure: Secondary to right-sided heart failure with severe pulmonary HTN. SOB improving with diuresis. Per Dr. Kruse, multiple CT scans had shown no evidence of ILD. * Pulmonology following. Appreciate their recs. * Wean down oxygen as tolerated. * Check high-resolution CT of the Chest upon stabilization of acute issues. * Outpatient sleep study to be performed as outpatient to exclude JV. #Pulmonary nodule: History of pulmonary nodule. * Follow-up CT scan as outpatient. Infectious Diseases: Afebrile and without leukocytosis. No signs or symptoms of infection. Cardiovascular: #Acute on chronic HFpEF with severe pulmonary HTN: Unclear whether pulmonary HTN is primary or 2/2 left heart disease. Recent left and right heart catheterization was inconclusive. * Cardiology following. Appreciate their recs. * Continue to monitor strict I/Os and daily weights. * Continue dobutamine IV drip. * Hold Lasix while on the dobutamine IV drip. * Continue prior to admission metoprolol 50 mg PO BID. * Elevate legs and wrap them in bilateral Ritchie wraps for compression. #PAD: Has been complaining of leg cramps. Concerning for PAD in the setting of multiple risk factors including CAD and history of smoking. * BLE arterial doppler US ordered to evaluate for PAD. #HTN: Blood pressures well-controlled this admission. * Continue metoprolol. Hematology: H/H stable. On warfarin. * Restart warfarin at 4 mg daily. * Continue to monitor INR daily and adjust warfarin dose accordingly to keep INR between 2.5 and 3 given prosthetic aortic valve. Metabolic: #Hypothyroidism: * Continue levothyroxine 50 mcg daily. #Electrolytes: * Replete to K > 4 and Mg > 2. Alimentary: CHF Diet Neurological: AAO x3. No issues. DVT/Prophylaxis: pharmacological Code Status: Full Code
[2016-11-23 08:00] VITALS: BP 98/76
--- NOTE | 2016-11-23 08:09 | PN- Pulmonary ---
Subjective HPI/Critical Care Issues: Patient feels well without shortness of breath she continues on low-flow oxygen. She is diuresing well continues to have significant lower extremity edema. Objective Current Medications: Current Medications Sig/Nicole Start time Last Medication Dose Route Stop Time Status Admin Acetaminophen 650 MG Q6P PRN 11/22 0230 AC PO Diclofenac Sodium 1 SANDRA 4 TIMES/DAY 11/22 1530 AC 11/22 TOP 2229 Dobutamine HCl 250 MG Q24H 11/21 2200 AC 11/23 Dextrose/Water 250 ML IV 0655 Ezetimibe 10 MG DAILY 11/22 1000 AC 11/22 PO 1010 Furosemide 40 MG DAILY 11/22 1000 DC IV Furosemide 80 MG BID 11/22 1000 AC 11/22 IV 1942 Gemfibrozil 600 MG BID 11/22 1000 AC 11/22 PO 2229 Levothyroxine Sodium 0.05 MG DAILY AC 11/22 0700 AC 11/23 PO 0547 Magnesium Oxide 400 MG ONE ONE 11/23 0715 DC PO 11/23 0716 Magnesium Oxide 400 MG ONE ONE 11/22 0815 DC 11/22 PO 11/22 0816 1011 Metoprolol Tartrate 50 MG BID 11/22 0030 AC 11/22 PO 2229 Ondansetron HCl 4 MG ONCE ONE 11/22 1830 DC 11/22 IV 11/22 1831 1830 Oxycodone/ 1 TAB Q6P PRN 11/22 0230 AC Acetaminophen PO Oxycodone/ 2 TAB Q6P PRN 11/22 0230 AC 11/22 Acetaminophen PO 1419 Potassium Chloride 40 MEQ ONCE ONE 11/23 0715 DC PO 11/23 0716 Warfarin Sodium 5 MG COUMADIN 1700 ONE 11/22 1700 CAN PO 11/22 1701 Warfarin Sodium 2.5 MG COUMADIN 1700 ONE 11/22 1700 CAN PO 11/22 1701 Vital Signs & I&O Last 24 Hrs of Vitals and I&O: Vital Signs Date Time Temp Pulse Resp B/P Pulse O2 O2 Flow FiO2 Ox Delivery Rate 11/23 0655 94 107/66 11/23 0354 97 Nasal 7.0L Cannula 11/23 0000 97.4 100 17 118/74 93 Nasal 7.0L Cannula 11/23 0000 93 Nasal 7.0L Cannula 11/22 2229 78 146/115 11/22 2037 94 124/74 11/22 Nasal 7.0L Cannula 11/22 1600 92 Nasal 5.0L Cannula 11/22 1600 97.3 81 20 122/74 92 Nasal 5.0L Cannula 11/22 1200 94 Nasal 5.0L Cannula 11/22 1011 121 145/80 Intake & Output 11/23 1600 11/23 0800 11/23 0000 Intake Total 431 593 Output Total 1300 1800 Balance -869 -1207 Intake, IV 191 213 Intake, Oral 240 380 Output, 600 Emesis Output, Urine 1300 1200 Oxygen saturation on 7 L is 97% exam for chest shows rare basilar crackles are no wheezes cardiac exam shows a regular rhythm extremities have 4+ edema. Impression/Plan Impression/Plan Impression/Plan: 76-year-old with COPD and pulmonary hypertension in the setting of rheumatic heart disease and mitral valve replacement. Multiple CT scans do not show evidence of interstitial lung disease. Unfortunately her catheterization was not able to determine whether her pulmonary hypertension was cardiac in origin, she appears to have significant right heart failure, she does have a pulmonary nodule which will require follow-up Recommendations: High-resolution CT scan of the chest once acute problems have stabilized. Outpatient sleep study to exclude obstructive sleep apnea. Continue negative fluid balance and Taper FiO2 his saturations allow. She is therapeutically anticoagulated. Follow-up CT scan of pulmonary nodule as outpatient. Patient should have legs elevated and bilateral Ritchie wraps can be used for compression
--- NOTE | 2016-11-23 09:18 | NUR ---
@0800-PT ALERT AND ORIENTED, COOP. MONAHAN. WEAL TO BLE. NOTED TO BE ON 7LNC-O2SAT 94%, TITRATED DOWN TO 6L AT THIS TIME. CRACKLES TO BASES. IV LASIX 80MG ORD FOR THIS AM. AFIB HR 80S-90S. BP 90-[address] JUDES VALVE. ABD SOFT/DISTENDED, + BS. DENIES NAUSEA THIS AM. EDEMA NOTED IN ABD TRUNK AREA. OOB WITH BSC USE. SKIN INTACT EXCEPT FOR +3/+4 BLE EDEMA EXTENDING UP TO THIGHS. DENIES RLE CRAMPS AT THIS TIME, CONT WITH SCHEDULED VOLTERAN GEL. K+3.6, MAG 1.8-PO SUPPLEMENTS ORD THIS AM BY HOUSESTAFF. @0845-PT ASSISTED TO CHAIR SCALE FOR AM WEIGHT, UPON TRANSFER TO BED PT C/O LIGHTHEADEDNESS. BP 88/50 MANUAL AT THIS TIME. ASSISTED IN SF POSITION IN BED DUE TO PT INABILITY TO LAY FLAT AND BLE ELEVATED WITH FOOT REST GATCH. WILL HOLD OFF ON AM LOPRESSOR AND IV LASIX UNTIL DISCUSSED WITH HOUSESTAFF/CARDIOLOGY THIS AM. CONT TO MONITOR, CALL SANDOVAL WITHIN REACH.
--- NOTE | 2016-11-23 09:34 | PN- Cardiology ---
Subjective Subjective: * Breathing is improved. * atrial fibrillation * Patient had a good diuresis. * Potassium is 3.6 Objective Vital Signs and I&Os Vital Signs Date Time Temp Pulse Resp B/P Pulse O2 O2 Flow FiO2 Ox Delivery Rate 11/23 0800 95 Nasal 6.0L Cannula 11/23 0800 96.7 107 17 98/76 93 Nasal 6.0L Cannula 11/23 0655 94 107/66 11/23 0354 97 Nasal 7.0L Cannula 11/23 0000 97.4 100 17 118/74 93 Nasal 7.0L Cannula 11/23 0000 93 Nasal 7.0L Cannula 11/22 2229 78 146/115 11/22 2037 94 124/74 11/22 2000 91 Nasal 7.0L Cannula 11/22 1600 92 Nasal 5.0L Cannula 11/22 1600 97.3 81 20 122/74 92 Nasal 5.0L Cannula 11/22 1200 94 Nasal 5.0L Cannula 11/22 1011 121 145/80 Intake & Output 11/23 1600 11/23 0800 11/23 0000 11/22 1600 11/22 0800 11/22 0000 Intake Total 431 593 693.3 269 Output Total 1300 1800 2350 200 800 Balance -869 -1207 -1656.7 69 -800 Intake, IV 191 213 233.3 0 Intake, Oral 240 380 460 269 Number 0 0 Bowel Movements Output, 600 Emesis Output, Urine 1300 1200 2350 200 800 Patient 186 lb 185 lb 187 lb Weight Physical Exam: General: WD/ WN female in NAD; alert and oriented x 3 Neck: positive JVD Heart: irregularly irregular Lungs: clear bilaterally Extremities: 2+ bipedal edema Assessment/Plan Assessment/Plan * Patient is doing a bit better. We will stop her dobutamin drip. Begin digoxin 0.25mg daily to increased RV contractility. * Restart coumadin at 4mg daily and follow INR. * Replete potassium to 4.0. * Hold Lasix for now due to borderline hypotension. Restart tomorrow at 80mg PO daily. Continue telemetry? Yes
--- NOTE | 2016-11-23 10:41 | NUR ---
@1030-IV DOBTAMINE GTT DC/D PER ORDER, AWAITING PO LASIX FROM PHARMACY.
--- NOTE | 2016-11-23 11:33 | NUR ---
@1100-PT NOTED TO HAVE BP 84/50 ON AUTO CUFF. MANUAL BP 80/DOPP. PT DENIES DIZZINESS AT THIS TIME. ASSISTED PT BACK TO LAYING POSITION WITH LEGS ELEVATED IN BED. BLE EDEMA CONT. PO LASIX DOSE HELD AT THIS TIME DUE TO HYPOTENSIVE STATE. HOUSESTAFF AWARE. BLE WRAPPED IN KERLIX AND CHIN BANDAGE TO MIDTHIGH. CONT TO MONITOR CLOSELY. CALL SANDOVAL WITHIN REACH.
--- NOTE | 2016-11-23 13:24 | NUR ---
@1300-PT REMAINS HYPOTENSIVE 82/DOPP. REPORTED TO HOUSESTAFF. NOTED PT TO BECOME HYPOTENSIVE AFTER DOBUTAMINE GTT DISCONTINUED. HOUSESTAFF TO DISCUSS WITH DR FORD. CONT TO MONITOR CLOSELY. MIN URINE OUTPUT NOTED THIS AFTERNOON, DARK IN COLOR.
[2016-11-23 16:00] VITALS: BP 120/85
[2016-11-24] VITALS: BP 90/62
--- NOTE | 2016-11-24 01:30 | NUR ---
PATIENT ALERT AND VERBALLY APPROPRIATE. MONITOR AFIB AT RATE OF 92.MANUAL BP=90/62.DENIES PAIN,DYSPNEA OR NAUSEA.DOBUTAMINE DRIP AT 5 MCG/KG/MIN COMPLAINED OF HEARTBURN.MAALOX GIVEN. PT HAD REFUSED VOLTARAN GEL AT 2200. REQUESTED NOW. CHIN WRAPS REMOVED,GEL APPLIED AND REWRAPPED WITH KERLIX AND CHIN BANDAGES.
[2016-11-24 05:10] LABS: ABSOLUTE BASOPHIL COUNT 0 /CUMM (0.0-0.2); ABSOLUTE EOSINOPHIL COUNT 0.1 /CUMM (0.0-0.7); ABSOLUTE GRANULOCYTE CT 6.5 /CUMM (1.4-6.5); ABSOLUTE LYMPH COUNT 0.7 /CUMM (1.2-3.4); ABSOLUTE MONOCYTE COUNT 0.6 /CUMM (0.10-0.60); BASOPHIL % 0.3 % (0.0-2.0); EOSINOPHIL % 1.4 % (0-5); GRANULOCYTE % 81.2 % (42.2-75.2); HEMATOCRIT 37.6 % (37-47); MEAN CORPUSCULAR VOLUME 93.9 FL (81.0-99.0); MEAN PLATELET VOLUME 7.8 FL (7.4-10.4); PLATELET COUNT 207 /CUMM (130-400); RBC DISTRIBUTION WIDTH 15.8 % (11.5-14.5); WHITE BLOOD CELL COUNT 7.9 /CUMM (4.8-10.8)
--- NOTE | 2016-11-24 07:12 | PN- Resident CRCU ---
Subjective HPI/CRCU Issues: Patient remains on the IV dobutamine drip with BPs running in the 90-100s/60- 70s. Urine output has been low. Patient had painful leg cramps yesterday evening and was agitated. Patient was seen and examined this morning. She reports that her breathing is improved. She is currently on 5 L NC, down from 6 L yesterday. Patient has been vomiting this morning. She denies abdominal pain. Dobutamine drip was again discontinued this afternoon but BP dropped down to 70/40s and drip was re-started. Objective Vital Signs & I&O Last 8 Hrs of Vitals and I&O: Intake & Output 11/24 1600 Intake Total 798 Output Total 200 Balance 598 Intake, IV 678 Intake, Oral 120 Number 0 Bowel Movements Output, 50 Emesis Output, Urine 150 Patient 84.992 kg Weight Exam General Appearance: well developed/nourished, no apparent distress, alert, awake , comfortable Head: atraumatic, normal appearance Ears, Nose, Throat: moist mucus membranes Neck: JVD Respiratory: lungs clear Cardiovascular: irregularly irregular Gastrointestinal: soft, non-tender, positive bowel sounds Extremities: bilateral lower extremities with Ritchie wrap and 1+ edema Skin: intact, warm/dry Current Medications: Current Medications Sig/Nicole Start time Last Medication Dose Route Stop Time Status Admin Acetaminophen 650 MG Q6P PRN 11/22 0230 AC PO Al Hydroxide/Mg 30 ML ONCE ONE 11/24 0145 DC 11/24 Hydroxide PO 11/24 0146 0141 Al Hydroxide/Mg 30 ML .STK-MED ONE 11/24 0138 DC Hydroxide PO 11/24 0139 Diclofenac Sodium 1 SANDRA 4 TIMES/DAY 11/22 1530 11/24 TOP 1052 Digoxin 0.25 MG 1700 11/24 1700 AC PO Dobutamine HCl 250 MG Q24H 11/24 1500 AC Dextrose/Water 250 ML IV Dobutamine HCl 250 MG Q24H 11/23 1345 DC 11/24 Dextrose/Water 250 ML IV 1054 Ezetimibe 10 MG DAILY 11/22 1000 AC 11/24 PO 1051 Gemfibrozil 600 MG BID 11/22 1000 AC 11/24 PO 1051 Levothyroxine Sodium 0.05 MG DAILY AC 11/22 0700 AC 11/24 PO 0650 Metoprolol Tartrate 50 MG BID 11/22 0030 AC 11/24 PO 1051 Oxycodone/ 1 TAB Q6P PRN 11/22 0230 AC Acetaminophen PO Oxycodone/ 2 TAB Q6P PRN 11/22 0230 AC 11/23 Acetaminophen PO 2011 Oxymetazoline HCl 2 SPRAY BID 11/23 1533 AC DAO Prochlorperazine 10 MG ONCE ONE 11/24 0815 DC 11/24 IV 11/24 0816 0808 Sodium Chloride 1,000 ML Q20H 11/24 1400 AC 11/24 IV 11/25 0700 1624 Sodium Chloride 500 ML BOLUS ONE 11/24 1400 DC 11/24 IV 11/24 1459 1530 Sodium Chloride 500 ML BOLUS ONE 11/24 1245 DC 11/24 IV 11/24 1444 1256 Results Results: Laboratory Tests 11/24 11/24 0700 0430 Chemistry Sodium (137 - 145 mmol/L) 124 L Potassium (3.5 - 5.1 mmol/L) 4.3 Chloride (98 - 107 mmol/L) 87 L Carbon Dioxide (22 - 30 mmol/L) 26 Anion Gap (5 - 16) 10 BUN (7 - 17 mg/dL) 20 H Creatinine (0.5 - 1.0 mg/dL) 1.2 H Estimated GFR (>60 ml/min) 43 L Glucose (65 - 99 mg/dL) 88 Calcium (8.4 - 10.2 mg/dL) 8.7 Phosphorus (2.5 - 4.5 mg/dL) 4.7 H Magnesium (1.6 - 2.3 mg/dL) 2.0 Total Bilirubin (0.2 - 1.3 mg/dL) 2.0 H AST (14 - 36 U/L) 32 ALT (9 - 52 U/L) 29 Albumin (3.5 - 5.0 g/dL) 3.3 L Coagulation PT (9.4 - 12.5 SEC) 56.2 *H INR (0.90 - 1.19) 5.44 *H Hematology CBC w Diff NO MAN DIFF REQ WBC (4.8 - 10.8 /CUMM) 7.9 RBC (4.20 - 5.40 /CUMM) 4.00 L Hgb (12.0 - 16.0 G/DL) 12.4 Hct (37 - 47 %) 37.6 MCV (81.0 - 99.0 FL) 93.9 MCH (27.0 - 31.0 PG) 31.0 RDW (11.5 - 14.5 %) 15.8 H Plt Count (130 - 400 /CUMM) 207 MPV (7.4 - 10.4 FL) 7.8 Gran % (42.2 - 75.2 %) 81.2 H Lymphocytes % (20.5 - 51.1 %) 9.3 L Monocytes % (1.7 - 9.3 %) 7.8 Eosinophils % (0 - 5 %) 1.4 Basophils % (0.0 - 2.0 %) 0.3 Absolute Granulocytes (1.4 - 6.5 /CUMM) 6.5 Absolute Lymphocytes (1.2 - 3.4 /CUMM) 0.7 L Absolute Monocytes (0.10 - 0.60 /CUMM) 0.6 Absolute Eosinophils (0.0 - 0.7 /CUMM) 0.1 Absolute Basophils (0.0 - 0.2 /CUMM) 0 PUBS MCHC (33.0 - 37.0 G/DL) 33.0 US Findings: BLE ARTERIAL DOPPLER US: Normal velocity measurements in the lower extremities. Biphasic and monophasic phasic waveform suggests possible inflow disease, left greater than right. Greater sensitivity and specificity can be obtained with pre-and post exercise PVRs with PIA calculations. Also consider dedicated CTA for further anatomical detail. 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 Problem List: 1. Acute hypoxemic respiratory failure 2. Right heart failure 3. COPD (chronic obstructive pulmonary disease) 4. CAD S/P percutaneous coronary angioplasty 5. (HFpEF) heart failure with preserved ejection fraction 6. Rheumatic valvular disease 7. Supratherapeutic INR 8. RADHA (acute kidney injury) 9. Hyponatremia 10. Pulmonary nodule 11. Hypothyroidism 12. Vomiting Pain Ratin Tomorrow's Labs & Rationales: CBC and ICU bundle (ICU patient) Plan Respiratory: #Acute on chronic hypoxemic respiratory failure: Secondary to right-sided heart failure with severe pulmonary HTN. SOB improving with diuresis. Per Dr. Kruse, multiple CT scans had shown no evidence of ILD. * Pulmonology following. Appreciate their recs. * Wean down oxygen as tolerated. * Check high-resolution CT of the Chest upon stabilization of acute issues. * Outpatient sleep study to be performed as outpatient to exclude JV. #Pulmonary nodule: History of pulmonary nodule. * Follow-up CT scan as outpatient. Infectious Diseases: Afebrile and without leukocytosis. No signs or symptoms of infection. Cardiovascular: #Acute on chronic HFpEF with severe pulmonary HTN: Unclear whether pulmonary HTN is primary or 2/2 left heart disease in the setting of rheumatic valvular disease s/p mitral valve replacement. Recent left and right heart catheterization was inconclusive. Remains on the IV Lasix drip with borderline hypotension and low urine output. * Cardiology following. Appreciate their recs. * Continue to monitor strict I/Os and daily weights. * Continue dobutamine IV drip. * Start digoxin 0.25 mg daily to improve RV contractility. * Continue to hold Lasix. * Continue prior to admission metoprolol 50 mg PO BID. * Continue leg elevation and bilateral Ritchie wraps for compression. #Atrial fibrillation: Remains in atrial fibrillation with well-controlled heart rate. * Continue metoprolol 50 mg PO BID for rate control * Continue warfarin for anti-cogulation. Will hold in the setting of supratherapeutic INR. #PAD: Continues to have leg cramps. Arterial doppler US of BLE suggestive of possible inflow disease. * Consider further work-up as outpatient. Hematology: #Supratherapeutic INR: INR increased from 3.16 yesterday to 5.44 after receiving 4 mg of warfarin. No evidence of bleeding or bruising. * Hold warfarin. * Continue to monitor INR daily and start warfarin when INR is appropriate. Goal is between 2.5 and 3.5 given prosthetic mitral valve. Metabolic: #RADHA: Creatinine was 0.8 on admission but has increased to 1.2 this AM. This is most likely pre-renal in etiology secondary to overdiuresis and cardiorenal syndrome but ATN cannot be ruled out. * Nephrology following. Appreciate their recs. * Continue to monitor lytes and kidney function. Replete to K > 4 and Mg > 2. * Per nephrology, will attempt trial volume expansion despite total volume overload with hyponatremia, peripheral edema and ascites. * Administer 500 mL boluses of NS x 2. Then start maintenance fluids, NS @ 100 cc/hr until tomorrow AM. * AM cortisol added to morning labs. * Avoid nephrotoxic agents including NSAIDs and IV contrast. * Avoid RITCHIE inhibitors and ARBs. #Hyponatremia: Na was 130 on admission, has further decreased to 124 today. This is most likely acute on chronic in the setting of severe right-sided heart failure and overdiuresis. * Start 800 mL oral fluid restriction (outside of the IV NS that patient is getting). * No indication for hypertonic saline per nephrology. * If hyponatremia worsens, consider starting V2 aurea (i.e. tolvaptan). #Hypothyroidism: * Continue levothyroxine 50 mcg daily. Alimentary: CHF Diet Neurological: AAO x3. No issues. DVT/Prophylaxis: pharmacological Code Status: Full Code
[2016-11-24 08:00] VITALS: BP 116/84
--- NOTE | 2016-11-24 08:21 | PN- Pulmonary ---
Subjective HPI/Critical Care Issues: Patient 88 shortness of breath. She has been vomiting this morning but denies abdominal pain. Her lower extremity edema is decreased with diuresis and compression wraps Objective Current Medications: Current Medications Sig/Nicole Start time Last Medication Dose Route Stop Time Status Admin Acetaminophen 650 MG Q6P PRN 11/22 0230 AC PO Al Hydroxide/Mg 30 ML ONCE ONE 11/24 0145 DC 11/24 Hydroxide PO 11/24 0146 0141 Diclofenac Sodium 1 SANDRA 4 TIMES/DAY 11/22 1530 AC 11/24 TOP 0145 Digoxin 0.25 MG 1700 11/23 1700 CAN PO Dobutamine HCl 250 MG Q24H 11/23 1345 AC 11/23 Dextrose/Water 250 ML IV 2130 Dobutamine HCl 250 MG Q24H 11/21 2200 DC 11/23 Dextrose/Water 250 ML IV 0655 Ezetimibe 10 MG DAILY 11/22 1000 AC 11/23 PO 0957 Furosemide 80 MG DAILY 11/23 1016 DC PO Furosemide 80 MG BID 11/22 1000 DC 11/22 IV 1942 Gemfibrozil 600 MG BID 11/22 1000 AC 11/23 PO 2153 Levothyroxine Sodium 0.05 MG DAILY AC 11/22 0700 AC 11/24 PO 0650 Metoprolol Tartrate 50 MG BID 11/22 0030 AC 11/23 PO 2153 Oxycodone/ 1 TAB Q6P PRN 11/22 0230 AC Acetaminophen PO Oxycodone/ 2 TAB Q6P PRN 11/22 0230 AC 11/23 Acetaminophen PO 2012 Oxymetazoline HCl 2 SPRAY BID 11/23 1533 AC DAO Prochlorperazine 10 MG ONCE ONE 11/24 0815 DC 11/24 IV 11/24 0816 0808 Warfarin Sodium 4 MG COUMADIN 1700 ONE 11/23 1700 DC 11/23 PO 11/23 1701 1637 Vital Signs & I&O Last 24 Hrs of Vitals and I&O: Vital Signs Date Time Temp Pulse Resp B/P Pulse O2 O2 Flow FiO2 Ox Delivery Rate 11/24 0400 92 Nasal 5.0L Cannula 11/24 0000 97.7 92 20 90/62 91 Nasal 5.0L Cannula 11/24 0000 91 Nasal 5.0L Cannula 11/23 2153 105 100/71 11/23 2130 109 100/71 11/23 1933 93 Nasal 5.0L Cannula 11/23 1600 96 Nasal 5.0L Cannula 11/23 1600 96.6 94 16 120/85 96 Nasal 5.0L Cannula 11/23 1330 89 82/40 11/23 1200 91 Nasal 6.0L Cannula 11/23 0957 90 112/82 Intake & Output 11/24 1600 11/24 0800 11/24 0000 Intake Total 444 554 Output Total 100 100 Balance 344 454 Intake, IV 204 204 Intake, Oral 240 350 Number 0 Bowel Movements Output, Urine 100 100 Oxygen saturation 92% on 5 L exam for chest shows clear lung blandon cardiac exam shows a regular S1 and S2 without murmurs abdominal exam is soft nontender her edema is diminished but still present Impression/Plan Impression/Plan Impression/Plan: 76-year-old with COPD and pulmonary hypertension in the setting of rheumatic heart disease and mitral valve replacement. Multiple CT scans do not show evidence of interstitial lung disease. Unfortunately her catheterization was not able to determine whether her pulmonary hypertension was cardiac in origin, she appears to have significant right heart failure, she does have a pulmonary nodule which will require follow-up. Respiratory status is slowly improving. Recommendations: High-resolution CT scan of the chest once acute problems have stabilized. Outpatient sleep study to exclude obstructive sleep apnea. Continue negative fluid balance and Taper FiO2 his saturations allow. She is therapeutically anticoagulated. Follow-up CT scan of pulmonary nodule as outpatient. Patient should have legs elevated and bilateral Ritchie wraps can be used for compression. This should be applied daily as edema decreases. Further evaluation of emesis by primary care team
[2016-11-24 08:35] LABS: PT 56.2 SEC (9.4-12.5)
--- NOTE | 2016-11-24 08:46 | ULTRASOUND REPORT ---
EXAMINATION: US-BILAT LOW EXTR ARTERIAL DOP CLINICAL INFORMATION: Significant risk factors for CAD including CAD and history of smoking. COMPARISON: None TECHNIQUE: Real-time ultrasound and Doppler techniques (integrating B-mode 2-D vascular images, Doppler spectral analysis and color flow Doppler imaging) were utilized to interrogate the lower extremities. FINDINGS: Right lower extremity: Common femoral artery: 87 cm/sec; biphasic waveform Superficial femoral artery proximal: 65 cm/sec; 5 days waveform Superficial femoral artery mid portion: 55 cm/sec; biphasic waveform Superficial femoral artery distal: 67 cm/sec; biphasic waveform Profunda artery: 49 cm/sec; biphasic waveform Popliteal artery: 33 cm/sec; biphasic waveform Posterior tibial artery: 25 cm/sec; biphasic waveform Anterior tibial artery: 31 cm/sec; monophasic waveform Dorsalis pedis artery: 10.6 cm/sec; monophasic waveform Left lower extremity: Common femoral artery: 81 cm/sec; monophasic waveform Superficial femoral artery proximal: 31 cm/sec; monophasic waveform Superficial femoral artery mid portion: 40 cm/sec; monophasic waveform Superficial femoral artery distal: 70 cm/sec; monophasic waveform Profunda artery: 38 cm/sec; monophasic waveform Popliteal artery: 35 cm/sec; monophasic waveform Posterior tibial artery: 38 cm/sec; monophasic waveform Anterior tibial artery: Not visualized Dorsalis pedis artery: 32 cm/sec; monophasic waveform ADDITIONAL FINDINGS: None. IMPRESSION: Normal velocity measurements in the lower extremities. Biphasic and monophasic phasic waveform suggests possible inflow disease, left greater than right. Greater sensitivity and specificity can be obtained with pre-and post exercise PVRs with PIA calculations. Also consider dedicated CTA for further anatomical detail.
--- NOTE | 2016-11-24 12:04 | NUR ---
DR FORD DC'D PT DOBUTAMINE AT 1130. SAID PT CAN GO TO TELE IF REMAINS STABLE.
--- NOTE | 2016-11-24 12:06 | NUR ---
PT INR 5.44. DR RICHARD NOTIFIED. STATED WE WOULD HOLD COUMADIN AND CONTINUE TO MONITOR. NO EVIDENCE OF BLEEDING AT THIS TIME.
--- NOTE | 2016-11-24 12:43 | PN- Cardiology ---
Subjective Subjective: * Patient is breathing better but complains of vomiting. * Patient is now hyponatremic. * creatinine is 1.2 * atrial fibrillation * Urine output 100cc's overnight and 150cc's this morning. Objective Vital Signs and I&Os Vital Signs Date Time Temp Pulse Resp B/P Pulse O2 O2 Flow FiO2 Ox Delivery Rate 11/24 1054 101 117/79 11/24 1051 99 117/79 11/24 0800 96.7 80 29 116/84 94 Nasal 5.0L Cannula 11/24 0800 93 Nasal 5.0L Cannula 11/24 0400 92 Nasal 5.0L Cannula 11/24 0000 97.7 92 20 90/62 91 Nasal 5.0L Cannula 11/24 0000 91 Nasal 5.0L Cannula 11/23 2153 105 100/71 11/23 2130 109 100/71 11/23 1933 93 Nasal 5.0L Cannula 11/23 1600 96 Nasal 5.0L Cannula 11/23 1600 96.6 94 16 120/85 96 Nasal 5.0L Cannula 11/23 1330 89 82/40 Intake & Output 11/24 1600 11/24 0800 11/24 0000 11/23 1600 11/23 0800 11/23 0000 Intake Total 444 554 627.5 431 593 Output Total 100 205 709 1686 1800 Balance 344 454 352.5 -869 -1207 Intake, IV 204 204 127.5 191 213 Intake, Oral 240 350 500 240 380 Number 0 0 Bowel Movements Output, 600 Emesis Output, Urine 100 358 708 1765 1200 Patient 187 lb 186 lb Weight Physical Exam: General: WD/ WN female in NAD; alert and oriented x 3 Neck: positive JVD Heart: irregularly irregular Lungs: clear bilaterally Extremities: 1+ bipedal edema Assessment/Plan Assessment/Plan * Patient is noted to drop her BP with discontinuation of Dobutamine. We will give her a 500cc normal saline fluid bolus. Begin digoxin 0.25mg daily as recommended yesterday to improve RV contractility. * Hold coumadin and follow INR. * Follow electrolytes * Obtain renal consult. * Hold Lasix for now due to borderline hypotension. Continue telemetry? Yes
--- NOTE | 2016-11-24 13:23 | NUR ---
APPROX 1200. PT STATED SHE WASNT FEELING WELL IN GENERAL AND NEEDED TO LIE DOWN. BP 70/60. PT RESTARTED ON DOBUTAMINE GTT. DR FORD NOTIFIED. NS 250 ML ORDERED X 2 HOURS. DIGOXIN OREDERED FOR 1700. BP RESPONDED TO RESTARTING DOBUTAMINE TO SBP 90'S. PT IS ON Q 15 BP MONITORING FOR NOW AND WILL REMAIN IN ICU.
--- NOTE | 2016-11-24 13:51 | Cons- Nephrology ---
General Information and HPI Consulting Request Date of Consult: 11/24/16 Requested By: LOGAN BAKER PhD,DEEDEE Silva Reason for Consult: RADHA & Hyponatremia Source of Information: patient, old records Exam Limitations: no limitations History of Present Illness: 76 yr old WF w mult med problems including HTN, CAD s/p PCI, Rheumatic valve dx s/p MVR w Afib/severe TR/pulm HTN, infrarenal AAA, COPD, & chronic interstitial lung dx admit 11/21/16 w increased SOB & edema. [place] volume overloaded w CHF & begun on IV Lasix & Dobutamine. Course compicated by episodic hypotension to 90 systolic, RADHA w Cr rise 0.8 --> 1.2, & worsening hypontaremia from 130 --> 124. No record ACEI, ARB, NSAID, or recent IV contrast. No Vanco or aminoglycosides. Urine nonoliguric w significant neg I/O & received 500 ml IV NS bolus today but still hypotensive. Has ongoing oral & IV free water intake w rare vomiting & no diarrhea. Allergies/Medications Allergies: Coded Allergies: cefaclor (ANAPHYLAXIS 11/21/16) rabbit dander (THROAT STARTS TO CLOSE, ITCHY EYES, ITCHY NOSE 11/21/16) Home Med List: Ezetimibe (Zetia) 10 MG TABLET 1 TAB PO DAILY CHOLESTEROL (Reported) Furosemide 40 MG TABLET 1 TAB PO BID DIURETIC (Reported) Gemfibrozil 600 MG TABLET 1 TAB PO BID CHOLESTEROL (Reported) Levothyroxine Sodium 50 MCG TABLET 50 MCG PO DAILY THYROID (Reported) Metoprolol Tartrate 100 MG TABLET 0.5 TAB PO BID HEART/BP (Reported) Potassium Chloride 20 MEQ TAB.ER.PRT 1 TAB PO DAILY SUPPLEMENT (Reported) Warfarin Sodium (Coumadin) 5 MG TABLET 1 TAB PO DAILY BLOOD THINNER (Reported ) Current Medications: Current Medications Sig/Nicole Start time Last Medication Dose Route Stop Time Status Admin Acetaminophen 650 MG Q6P PRN 11/22 0230 AC PO Al Hydroxide/Mg 30 ML ONCE ONE 11/24 0145 DC 11/24 Hydroxide PO 11/24 0146 0141 Al Hydroxide/Mg 30 ML .STK-MED ONE 11/24 0138 DC Hydroxide PO 11/24 0139 Diclofenac Sodium 1 SANDRA 4 TIMES/DAY 11/22 1530 AC 11/24 TOP 1052 Digoxin 0.25 MG 1700 11/24 1700 AC PO Digoxin 0.25 MG 1700 11/23 1700 CAN PO Dobutamine HCl 250 MG Q24H 11/23 1345 DC 11/24 Dextrose/Water 250 ML IV 1054 Ezetimibe 10 MG DAILY 11/22 1000 AC 11/24 PO 1051 Gemfibrozil 600 MG BID 11/22 1000 AC 11/24 PO 1051 Levothyroxine Sodium 0.05 MG DAILY AC 11/22 0700 AC 11/24 PO 0650 Metoprolol Tartrate 50 MG BID 11/22 0030 AC 11/24 PO 1051 Oxycodone/ 1 TAB Q6P PRN 11/22 0230 AC Acetaminophen PO Oxycodone/ 2 TAB Q6P PRN 11/22 0230 AC 11/23 Acetaminophen PO 2012 Oxymetazoline HCl 2 SPRAY BID 11/23 1533 AC DAO Prochlorperazine 10 MG ONCE ONE 11/24 0815 DC 11/24 IV 11/24 0816 0808 Sodium Chloride 1,000 ML Q20H 11/24 1400 UNVr IV Sodium Chloride 500 ML BOLUS ONE 11/24 1400 UNVr IV 11/24 1459 Sodium Chloride 500 ML BOLUS ONE 11/24 1245 AC 11/24 IV 11/24 1444 1256 Warfarin Sodium 4 MG COUMADIN 1700 ONE 11/23 1700 DC 11/23 PO 11/23 1701 1637 Review of Systems Review of Systems Constitutional: Denies: no symptoms. EENTM: Denies: no symptoms. Cardiovascular: Reports: see HPI. Respiratory: Reports: see HPI. GI: Reports: see HPI. Genitourinary: Reports: no symptoms. Skin: Reports: no symptoms. Neurological/Psychological: Reports: no symptoms. Hematologic/Endocrine: Reports: no symptoms. Immunologic/Allergic: Reports: no symptoms. All Other Systems: Reviewed and Negative Past History Travel History Traveled to [place] past 21 day No Medical History Blood Transfusion Hx: Yes Neurological: NONE EENT: NONE Cardiovascular: aortic aneurysm (abdominal), AFIB (s/p MAZE), CHF (RV failure), hypertension, hyperlipidemia, mitral stenosis (s/p [facility] MVR with MAZE), MITRAL VALVE REPLACEMENT ventricular tachycardia peripheral vascular disease Respiratory: interstitial lung disease, COPD Gastrointestinal: schatski's ring Hepatic: NONE Renal: questionable renal artery stenosis Musculoskeletal: NONE Psychiatric: NONE Endocrine: hyperthyroidism Blood Disorders: NONE Cancer(s): NONE SOCIOLOGY FACULTY MEMBER/Reproductive: NONE Other Medical Hx: rheumatic fever Surgical History Surgical History: AVR Family History Relations & Conditions If Any: Relation not specified for: No family history of disorders Psychosocial History Where Do You Live? Home Services at Home: [facility] Smoking Status: Former Smoker (quit in 1994) ETOH Use: denies use Illicit Drug Use: denies illicit drug use Living Will? yes Power of Custom Protection Officer/HCP? yes Name of POA/HCP: Linda Sandhu [phone] Functional Ability ADLs Independent: dressing, eating, toileting, bathing. Ambulation: independent IADLs Independent: shopping, housework, finances, food prep, telephone, transportation , medication admin. ECHO Results (as available) Date of last Echo 03/09/15 EF% 65 Exam & Diagnostic Data Vital Signs and I&O Vital Signs Date Time Temp Pulse Resp B/P Pulse O2 O2 Flow FiO2 Ox Delivery Rate 11/24 1200 91 Nasal 6.0L Cannula 11/24 1054 101 117/79 11/24 1051 99 117/79 11/24 0800 96.7 80 29 116/84 94 Nasal 5.0L Cannula 11/24 0800 93 Nasal 5.0L Cannula 11/24 0400 92 Nasal 5.0L Cannula 11/24 0000 97.7 92 20 90/62 91 Nasal 5.0L Cannula 11/24 0000 91 Nasal 5.0L Cannula 11/23 2153 105 100/71 11/23 2130 109 100/71 11/23 1933 93 Nasal 5.0L Cannula 11/23 1600 96 Nasal 5.0L Cannula 11/23 1600 96.6 94 16 120/85 96 Nasal 5.0L Cannula Intake & Output 11/24 1600 11/24 0400 11/23 1600 11/23 0400 11/22 1600 11/22 0400 Intake Total 688 815 1847.5 593 962.3 Output Total 173 822 1513 1800 2550 800 Balance 344 454 -516.5 -1207 -1587.7 -800 Intake, IV 204 204 318.5 213 233.3 Intake, Oral 240 350 740 380 729 Number 0 0 0 Bowel Movements Output, 600 Emesis Output, Urine 107 992 7480 1200 2550 800 Patient 187 lb 186 lb 185 lb 187 lb Weight Physical Exam General Appearance: well developed/nourished, O2 by [place] Head: atraumatic, normal appearance Eyes: Bilateral: normal appearance. Ears, Nose, Throat: normal ENT inspection Neck: normal inspection, JVD Respiratory: normal breath sounds, quiet respiration, lungs clear Cardiovascular: irregularly irregular, prosthetic MV sounds Gastrointestinal: soft, non-tender, no organomegaly Extremities: swelling, dressed bilat Neurologic/Psych: no motor/sensory deficits, awake, alert, terrazzo layer II-XII nml as tested Skin: cyanotic feet bilat Lymphatic: no anterior cervical adryan Results Pertinent Lab Results: Laboratory Tests 11/24 11/24 0700 0430 Chemistry Sodium (137 - 145 mmol/L) 124 L Potassium (3.5 - 5.1 mmol/L) 4.3 Chloride (98 - 107 mmol/L) 87 L Carbon Dioxide (22 - 30 mmol/L) 26 Anion Gap (5 - 16) 10 BUN (7 - 17 mg/dL) 20 H Creatinine (0.5 - 1.0 mg/dL) 1.2 H Estimated GFR (>60 ml/min) 43 L Glucose (65 - 99 mg/dL) 88 Calcium (8.4 - 10.2 mg/dL) 8.7 Phosphorus (2.5 - 4.5 mg/dL) 4.7 H Magnesium (1.6 - 2.3 mg/dL) 2.0 Total Bilirubin (0.2 - 1.3 mg/dL) 2.0 H AST (14 - 36 U/L) 32 ALT (9 - 52 U/L) 29 Albumin (3.5 - 5.0 g/dL) 3.3 L Coagulation PT (9.4 - 12.5 SEC) 56.2 *H INR (0.90 - 1.19) 5.44 *H Hematology CBC w Diff NO MAN DIFF REQ WBC (4.8 - 10.8 /CUMM) 7.9 RBC (4.20 - 5.40 /CUMM) 4.00 L Hgb (12.0 - 16.0 G/DL) 12.4 Hct (37 - 47 %) 37.6 MCV (81.0 - 99.0 FL) 93.9 MCH (27.0 - 31.0 PG) 31.0 RDW (11.5 - 14.5 %) 15.8 H Plt Count (130 - 400 /CUMM) 207 MPV (7.4 - 10.4 FL) 7.8 Gran % (42.2 - 75.2 %) 81.2 H Lymphocytes % (20.5 - 51.1 %) 9.3 L Monocytes % (1.7 - 9.3 %) 7.8 Eosinophils % (0 - 5 %) 1.4 Basophils % (0.0 - 2.0 %) 0.3 Absolute Granulocytes (1.4 - 6.5 /CUMM) 6.5 Absolute Lymphocytes (1.2 - 3.4 /CUMM) 0.7 L Absolute Monocytes (0.10 - 0.60 /CUMM) 0.6 Absolute Eosinophils (0.0 - 0.7 /CUMM) 0.1 Absolute Basophils (0.0 - 0.2 /CUMM) 0 PUBS MCHC (33.0 - 37.0 G/DL) 33.0 11/23 11/22 0430 0435 Chemistry Sodium (137 - 145 mmol/L) 130 L 130 L Potassium (3.5 - 5.1 mmol/L) 3.6 4.0 Chloride (98 - 107 mmol/L) 92 L 94 L Carbon Dioxide (22 - 30 mmol/L) 28 24 Anion Gap (5 - 16) 11 12 BUN (7 - 17 mg/dL) 17 18 H Creatinine (0.5 - 1.0 mg/dL) 0.9 0.9 Estimated GFR (>60 ml/min) > 60 > 60 Glucose (65 - 99 mg/dL) 110 H 104 H Calcium (8.4 - 10.2 mg/dL) 8.5 9.1 Phosphorus (2.5 - 4.5 mg/dL) 4.3 4.1 Magnesium (1.6 - 2.3 mg/dL) 1.8 1.7 Total Bilirubin (0.2 - 1.3 mg/dL) 2.2 H 2.5 H AST (14 - 36 U/L) 30 29 ALT (9 - 52 U/L) 25 26 Troponin I (< 0.11 ng/ml) 0.02 Albumin (3.5 - 5.0 g/dL) 3.2 L 3.4 L Coagulation PT (9.4 - 12.5 SEC) 32.8 H 34.1 H INR (0.90 - 1.19) 3.16 H 3.29 H Hematology CBC w Diff NO MAN DIFF REQ NO MAN DIFF REQ WBC (4.8 - 10.8 /CUMM) 6.6 8.1 RBC (4.20 - 5.40 /CUMM) 4.08 L 4.11 L Hgb (12.0 - 16.0 G/DL) 12.6 12.7 Hct (37 - 47 %) 38.5 38.7 MCV (81.0 - 99.0 FL) 94.4 94.2 MCH (27.0 - 31.0 PG) 30.8 30.9 RDW (11.5 - 14.5 %) 16.3 H 16.2 H Plt Count (130 - 400 /CUMM) 189 228 MPV (7.4 - 10.4 FL) 7.9 7.9 Gran % (42.2 - 75.2 %) 76.6 H 76.3 H Lymphocytes % (20.5 - 51.1 %) 12.1 L 12.1 L Monocytes % (1.7 - 9.3 %) 9.4 H 10.5 H Eosinophils % (0 - 5 %) 1.7 0.7 Basophils % (0.0 - 2.0 %) 0.2 0.4 Absolute Granulocytes (1.4 - 6.5 /CUMM) 5.0 6.2 Absolute Lymphocytes (1.2 - 3.4 /CUMM) 0.8 L 1.0 L Absolute Monocytes (0.10 - 0.60 /CUMM) 0.6 0.8 H Absolute Eosinophils (0.0 - 0.7 /CUMM) 0.1 0.1 Absolute Basophils (0.0 - 0.2 /CUMM) 0 0 PUBS MCHC (33.0 - 37.0 G/DL) 32.7 L 32.8 L 11/21 11/21 11/21 1920 1818 1730 Chemistry Sodium (137 - 145 mmol/L) 130 L Potassium (3.5 - 5.1 mmol/L) 4.2 Chloride (98 - 107 mmol/L) 93 L Carbon Dioxide (22 - 30 mmol/L) 24 Anion Gap (5 - 16) 13 BUN (7 - 17 mg/dL) 16 Creatinine (0.5 - 1.0 mg/dL) 0.8 Estimated GFR (>60 ml/min) > 60 BUN/Creatinine Ratio (7 - 25 %) 20.0 Glucose (65 - 99 mg/dL) 82 Calcium (8.4 - 10.2 mg/dL) 9.4 Total Bilirubin (0.2 - 1.3 mg/dL) 2.7 H AST (14 - 36 U/L) 33 ALT (9 - 52 U/L) 28 Alkaline Phosphatase (<127 U/L) 113 Troponin I (< 0.11 ng/ml) 0.01 Des-X-Fkxwhezxquq Pept (<125 pg/mL) 5770 H Total Protein (6.3 - 8.2 g/dL) 7.4 Albumin (3.5 - 5.0 g/dL) 3.9 Globulin (1.9 - 4.2 gm/dL) 3.5 Albumin/Globulin Ratio (1.1 - 2.2 %) 1.1 Coagulation PT (9.4 - 12.5 SEC) 31.8 H INR (0.90 - 1.19) 3.06 H APTT (25 - 37 SEC) 46 H Hematology CBC w Diff NO MAN DIFF REQ WBC (4.8 - 10.8 /CUMM) 7.5 RBC (4.20 - 5.40 /CUMM) 4.46 Hgb (12.0 - 16.0 G/DL) 13.7 Hct (37 - 47 %) 41.7 MCV (81.0 - 99.0 FL) 93.4 MCH (27.0 - 31.0 PG) 30.7 RDW (11.5 - 14.5 %) 16.6 H Plt Count (130 - 400 /CUMM) 250 MPV (7.4 - 10.4 FL) 8.1 Gran % (42.2 - 75.2 %) 69.8 Lymphocytes % (20.5 - 51.1 %) 17.1 L Monocytes % (1.7 - 9.3 %) 11.5 H Eosinophils % (0 - 5 %) 1.3 Basophils % (0.0 - 2.0 %) 0.3 Absolute Granulocytes (1.4 - 6.5 /CUMM) 5.2 Absolute Lymphocytes (1.2 - 3.4 /CUMM) 1.3 Absolute Monocytes (0.10 - 0.60 /CUMM) 0.9 H Absolute Eosinophils (0.0 - 0.7 /CUMM) 0.1 Absolute Basophils (0.0 - 0.2 /CUMM) 0 PUBS MCHC (33.0 - 37.0 G/DL) 32.8 L Imaging/Other Studies: EXAMINATION: XR PORTABLE CHEST CLINICAL INFORMATION: History of mitral valve replacement. History of pulmonary stenosis. Now shortness of breath. COMPARISON: CT of the chest done 06/21/2016. Last chest x-ray done 01/20/2016. TECHNIQUE: Portable AP semierect view of the chest was obtained. FINDINGS: The heart remains enlarged. The thoracic aorta is tortuous. A mitral valve annuloplasty is present. Sternotomy wires are in place. Emphysematous changes are seen in the upper lobes. Pulmonary vascularity is unchanged. There is no evidence of pulmonary edema or pleural effusion. IMPRESSION: Cardiomegaly. No evidence of cardiac failure. EXAMINATION: US ABDOMEN LIMITED CLINICAL INFORMATION: Check for ascites. Swelling and extensive edema COMPARISON: None TECHNIQUE: Real-time imaging of the 4 quadrants of the abdomen to assess for ascites. FINDINGS/IMPRESSION: Ascites is visualized in the right upper quadrant. Assessment/Plan Assessment/Recommendations Assessment: 1. RADHA: suspect prerenal due to overdiuresis & cardiorenal syndrome, but can't r /o ATN due to same factors complicated by significant hypotension. Needs trial volume expansion despite total volume Na/H2O overload w edema & ascites. 2. Hyponatremia: moderate & chronic; due to excess oral free water intake in face of severe valvular heart dx, lung dx, & diuresis leading to RADHA. Needs oral & IV free water restriction but no indication for hypertonic saline. If continues to worsen --> will need V2 aurea, tolvaptan. Recommendations: 1. Bolus another 500 ml IV NS 2. IV NS 100 ml/hr thereafter till tomorrow AM 3. 800 ml per day or less fluids outside of IV NS (po & IV meds) 4. serial chemistries 5. No RAAAS interruption 6. No IV contrast 7. No NSAIDs 8. check AM cortisol Overall prognosis poor & limits of care shoild be addressed w pt & family
[2016-11-24 16:00] VITALS: BP 98/68
--- NOTE | 2016-11-24 18:35 | NUR ---
OGT PULLED OUT DURING TURN/REPOSITION. REPLACED AND CXR COMPLETED. AWAITING RESULTS.
--- NOTE | 2016-11-24 20:00 | NUR ---
PATIENT ALERT AND VERBALLY APPROPRIATE. MONITOR AFIB AT RATE OF 95. MANUAL OS=238/62.DOBUTAMINE DRIP AT 5 MCG/KG/HR.IVF OF NS AT 100 ML.DENIES PAIN OR NAUSEA.
--- NOTE | 2016-11-24 23:00 | NUR ---
PATIENT C/O NOT FEELING WELL.STATES SHE IS DIZZY AND TIRED.STATES SHE IS FALLING ASLEEP WHILE NURSE IS TENDING TO HER.XC=668/90. MONITOR AFIB AT RATE OF 96.NO DYSPNEA REPORTED. O2 SAT=90-92%.OYKICZBTY=534.ABOVE REPORTED TO .PT SEEN AND EXAMINED BY .BLOODWORK DRAWN AND SENT TO LAB.
[2016-11-25] VITALS: BP 96/62
[2016-11-25 00:07] LABS: ABSOLUTE BASOPHIL COUNT 0 /CUMM (0.0-0.2); ABSOLUTE EOSINOPHIL COUNT 0.1 /CUMM (0.0-0.7); ABSOLUTE GRANULOCYTE CT 7.1 /CUMM (1.4-6.5); ABSOLUTE LYMPH COUNT 0.6 /CUMM (1.2-3.4); ABSOLUTE MONOCYTE COUNT 0.7 /CUMM (0.10-0.60); BASOPHIL % 0.3 % (0.0-2.0); EOSINOPHIL % 1.3 % (0-5); GRANULOCYTE % 82.8 % (42.2-75.2); HEMATOCRIT 39.8 % (37-47); MEAN CORPUSCULAR HGB 30.8 PG (27.0-31.0); MEAN CORPUSCULAR VOLUME 93.1 FL (81.0-99.0); PLATELET COUNT 210 /CUMM (130-400); RED BLOOD CELL CT 4.27 /CUMM (4.20-5.40); WHITE BLOOD CELL COUNT 8.6 /CUMM (4.8-10.8)
--- NOTE | 2016-11-25 00:30 | NUR ---
ME=329.DR SPENCE NOTIFIED.STATES DR. FORD AND RENAL DR NOTIFIED.IVF OF NS D/C. DOBUTAMINE DRIP CONTINUES AT 5 MCG/KG/HR.ORAL FLUIDS RESTRICTED.TOLVAPTAN TO BE GIVEN PO AND LABS RECHECKED AT 0400.PT MENTATION REMAINS INTACT.
--- NOTE | 2016-11-25 01:14 | Event Note ---
Event Note Event Note: Critical laboratory value informed Sodium level 119. Patient visited bedside stated that she began to feel better although still complains of bilateral muscular cramps. 12:30 AM. Spoke with attending Dr Portillo. Initially recommended that the patient should be started on 3% normal saline. Discontinued 0.9% IV fluids. 1.00 AM. Spoke with nephrology, Dr Brown, who recommended that we hold off on 3% hypertonic saline and discontnue Normal Saline. Strictly Fluid restrict the patient. Begin the patient on Tolvaptan. Dose confirmed with pharmacy. Will continue to monitor, next ICU Bundle scheduled for 4.00 am.
[2016-11-25 04:29] LABS: ABSOLUTE BASOPHIL COUNT 0 /CUMM (0.0-0.2); ABSOLUTE EOSINOPHIL COUNT 0.1 /CUMM (0.0-0.7); ABSOLUTE GRANULOCYTE CT 6.7 /CUMM (1.4-6.5); ABSOLUTE LYMPH COUNT 0.7 /CUMM (1.2-3.4); ABSOLUTE MONOCYTE COUNT 0.6 /CUMM (0.10-0.60); BASOPHIL % 0.2 % (0.0-2.0); EOSINOPHIL % 0.9 % (0-5); GRANULOCYTE % 82.7 % (42.2-75.2); HEMATOCRIT 37.3 % (37-47); MEAN CORPUSCULAR HGB 31.1 PG (27.0-31.0); MEAN CORPUSCULAR HGB CONC 33.3 G/DL (33.0-37.0); MEAN CORPUSCULAR VOLUME 93.3 FL (81.0-99.0); MEAN PLATELET VOLUME 7.9 FL (7.4-10.4); PLATELET COUNT 199 /CUMM (130-400); WHITE BLOOD CELL COUNT 8.1 /CUMM (4.8-10.8)
[2016-11-25 05:22] LABS: PT 97.8 SEC (9.4-12.5)
--- NOTE | 2016-11-25 07:14 | PN- Resident CRCU ---
Subjective HPI/CRCU Issues: Patient's sodium had further decreased from 124 to 119 at midnight. Per nephrology recommendations, normal saline was discontinued and patient was started on tolvaptan. She remained on water restriction. Patient was seen and examined this morning. She feels that her breathing is improved. She choked on her food while eating eggs for breakfast this morning and was made NPO. She denies prior history of dyspagia or aspiration. Objective Vital Signs & I&O Last 8 Hrs of Vitals and I&O: Vital Signs Date Time Temp Pulse Resp B/P Pulse O2 O2 Flow FiO2 Ox Delivery Rate 11/25 1224 94 100/60 11/25 0800 92 Nasal 5.0L Cannula 11/25 0800 97.1 95 30 118/64 92 Nasal 5.0L Cannula 11/25 0400 91 Nasal 5.0L Cannula 11/25 0000 92 Nasal 5.0L Cannula 11/25 0000 97.3 85 20 96/62 92 Nasal 5.0L Cannula 11/24 2203 100 20 118/80 11/24 2151 104 20 120/75 11/24 2000 95 Nasal 5.0L Cannula 11/24 1810 92 104/65 Exam General Appearance: well developed/nourished, no apparent distress, alert, awake , comfortable Head: atraumatic, normal appearance Neck: JVD Respiratory: no respiratory distress, lungs clear Cardiovascular: irregularly irregular Gastrointestinal: soft, non-tender, distended, positive bowel sounds Extremities: bilateral lower extremities with Ritchie wrap and 1+ edema Skin: normal color, warm/dry Current Medications: Current Medications Sig/Nicole Start time Last Medication Dose Route Stop Time Status Admin Acetaminophen 650 MG Q6P PRN 11/22 0230 AC PO Diclofenac Sodium 1 SANDRA 4 TIMES/DAY 11/22 1530 AC 11/24 TOP 1052 Digoxin 0.125 MG 0 11/26 1700 AC PO Digoxin 0.25 MG 1700 11/24 1700 AC 11/24 PO 11/25 1999 1810 Dobutamine HCl 250 MG Q24H 11/24 1500 DC 11/24 Dextrose/Water 250 ML IV 2151 Ezetimibe 10 MG DAILY 11/22 1000 AC 11/25 PO 1225 Gemfibrozil 600 MG BID 11/22 1000 AC 11/25 PO 1225 Levothyroxine Sodium 0.05 MG DAILY AC 11/22 0700 AC 11/25 PO 0704 Magnesium Oxide 400 MG ONE ONE 11/25 0800 CAN PO 11/25 0801 Metoprolol Tartrate 50 MG BID 11/22 0030 AC 11/24 PO 2203 Oxycodone/ 1 TAB Q6P PRN 11/22 0230 AC Acetaminophen PO Oxycodone/ 2 TAB Q6P PRN 11/22 0230 AC 11/25 Acetaminophen PO 0036 Oxymetazoline HCl 2 SPRAY BID 11/23 1533 AC DAO Phytonadione 2.5 MG ONCE ONE 11/25 1215 DC 11/25 PO 11/25 1216 1412 Phytonadione 2.5 MG DAILY 11/25 1201 DC PO Phytonadione 2.5 MG ONCE ONE 11/25 0830 DC 11/25 PO 11/25 0831 1225 Polyethylene Glycol 17 GM DAILY 11/24 2140 AC 11/25 PO 1225 Senna/Docusate Sodium 1 TAB DAILY 11/24 2140 AC 11/25 PO 1225 Sodium Chloride 500 ML CONTINOUS INFUSION 11/25 0100 CAN IV Sodium Chloride 1,000 ML Q20H 11/24 1400 DC 11/24 IV 11/25 0700 2357 Tolvaptan 15 MG 11/25 2200 AC PO Tolvaptan 15 MG DAILY 11/25 0115 DC 11/25 PO 0145 Results Results: Laboratory Tests 11/25 11/25 11/25 1045 0700 0500 Chemistry Sodium (137 - 145 mmol/L) 123 L 124 L Potassium (3.5 - 5.1 mmol/L) 4.7 5.1 Chloride (98 - 107 mmol/L) 88 L 86 L Carbon Dioxide (22 - 30 mmol/L) 27 28 Anion Gap (5 - 16) 8 10 BUN (7 - 17 mg/dL) 23 H 23 H Creatinine (0.5 - 1.0 mg/dL) 1.3 H 1.3 H Estimated GFR (>60 ml/min) 40 L 40 L Glucose (65 - 99 mg/dL) 87 83 Calcium (8.4 - 10.2 mg/dL) 8.3 L 8.9 Phosphorus (2.5 - 4.5 mg/dL) 4.6 H 4.8 H Magnesium (1.6 - 2.3 mg/dL) 2.0 2.2 Total Bilirubin (0.2 - 1.3 mg/dL) 1.7 H 2.1 H AST (14 - 36 U/L) 30 38 H ALT (9 - 52 U/L) 28 31 Albumin (3.5 - 5.0 g/dL) 3.1 L 3.8 Cortisol AM Sample Cancelled Coagulation PT (9.4 - 12.5 SEC) 75.6 *H Cancelled INR (0.90 - 1.19) 7.34 *H Cancelled Toxicology Digoxin (0.8 - 2.0 ng/mL) 0.8 11/25 11/25 0400 0300 Chemistry Sodium (137 - 145 mmol/L) 125 L Cancelled Potassium (3.5 - 5.1 mmol/L) 4.4 Cancelled Chloride (98 - 107 mmol/L) 92 L Cancelled Carbon Dioxide (22 - 30 mmol/L) 24 Cancelled Anion Gap (5 - 16) 9 Cancelled BUN (7 - 17 mg/dL) 20 H Cancelled Creatinine (0.5 - 1.0 mg/dL) 1.2 H Cancelled Estimated GFR (>60 ml/min) 43 L Glucose (65 - 99 mg/dL) 81 Cancelled Calcium (8.4 - 10.2 mg/dL) 7.6 L Cancelled Phosphorus (2.5 - 4.5 mg/dL) 4.1 Cancelled Magnesium (1.6 - 2.3 mg/dL) 1.9 Cancelled Total Bilirubin (0.2 - 1.3 mg/dL) 1.6 H Cancelled AST (14 - 36 U/L) 29 Cancelled ALT (9 - 52 U/L) 29 Cancelled Albumin (3.5 - 5.0 g/dL) 2.8 L Cancelled Cortisol AM Sample (4.46 - 22.7 ug/dL) 21.1 Coagulation PT (9.4 - 12.5 SEC) 97.8 *H INR (0.90 - 1.19) 9.52 *H Hematology CBC w Diff NO MAN DIFF REQ WBC (4.8 - 10.8 /CUMM) 8.1 RBC (4.20 - 5.40 /CUMM) 4.00 L Hgb (12.0 - 16.0 G/DL) 12.4 Hct (37 - 47 %) 37.3 MCV (81.0 - 99.0 FL) 93.3 MCH (27.0 - 31.0 PG) 31.1 H RDW (11.5 - 14.5 %) 16.0 H Plt Count (130 - 400 /CUMM) 199 MPV (7.4 - 10.4 FL) 7.9 Gran % (42.2 - 75.2 %) 82.7 H Lymphocytes % (20.5 - 51.1 %) 8.5 L Monocytes % (1.7 - 9.3 %) 7.7 Eosinophils % (0 - 5 %) 0.9 Basophils % (0.0 - 2.0 %) 0.2 Absolute Granulocytes (1.4 - 6.5 /CUMM) 6.7 H Absolute Lymphocytes (1.2 - 3.4 /CUMM) 0.7 L Absolute Monocytes (0.10 - 0.60 /CUMM) 0.6 Absolute Eosinophils (0.0 - 0.7 /CUMM) 0.1 Absolute Basophils (0.0 - 0.2 /CUMM) 0 PUBS MCHC (33.0 - 37.0 G/DL) 33.3 11/24 2345 Chemistry Sodium (137 - 145 mmol/L) 119 *L Potassium (3.5 - 5.1 mmol/L) 4.5 Chloride (98 - 107 mmol/L) 87 L Carbon Dioxide (22 - 30 mmol/L) 24 Anion Gap (5 - 16) 8 BUN (7 - 17 mg/dL) 21 H Creatinine (0.5 - 1.0 mg/dL) 1.2 H Estimated GFR (>60 ml/min) 43 L Glucose (65 - 99 mg/dL) 105 H Calcium (8.4 - 10.2 mg/dL) 8.2 L Phosphorus (2.5 - 4.5 mg/dL) 4.3 Magnesium (1.6 - 2.3 mg/dL) 2.0 Total Bilirubin (0.2 - 1.3 mg/dL) 1.8 H AST (14 - 36 U/L) 30 ALT (9 - 52 U/L) 26 Albumin (3.5 - 5.0 g/dL) 3.0 L Hematology CBC w Diff NO MAN DIFF REQ WBC (4.8 - 10.8 /CUMM) 8.6 RBC (4.20 - 5.40 /CUMM) 4.27 Hgb (12.0 - 16.0 G/DL) 13.1 Hct (37 - 47 %) 39.8 MCV (81.0 - 99.0 FL) 93.1 MCH (27.0 - 31.0 PG) 30.8 RDW (11.5 - 14.5 %) 16.0 H Plt Count (130 - 400 /CUMM) 210 MPV (7.4 - 10.4 FL) 8.0 Gran % (42.2 - 75.2 %) 82.8 H Lymphocytes % (20.5 - 51.1 %) 7.0 L Monocytes % (1.7 - 9.3 %) 8.6 Eosinophils % (0 - 5 %) 1.3 Basophils % (0.0 - 2.0 %) 0.3 Absolute Granulocytes (1.4 - 6.5 /CUMM) 7.1 H Absolute Lymphocytes (1.2 - 3.4 /CUMM) 0.6 L Absolute Monocytes (0.10 - 0.60 /CUMM) 0.7 H Absolute Eosinophils (0.0 - 0.7 /CUMM) 0.1 Absolute Basophils (0.0 - 0.2 /CUMM) 0 PUBS MCHC (33.0 - 37.0 G/DL) 33.0 Impression/Plan Impression/Problem List Impression: 76 y/o F with PMHx of CAD s/p antigoplasty in 1994, 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 Problem List: 1. RADHA (acute kidney injury) 2. Hyponatremia 3. Pulmonary nodule 4. Supratherapeutic INR 5. Rheumatic valvular disease 6. Acute hypoxemic respiratory failure 7. Right heart failure 8. COPD (chronic obstructive pulmonary disease) 9. ILD (interstitial lung disease) 10. Moderate to severe pulmonary hypertension 11. Atrial fibrillation Pain Ratin Tomorrow's Labs & Rationales: CBC and ICU bundle (ICU patient) Plan Respiratory: #Acute on chronic hypoxemic respiratory failure: Secondary to right-sided heart failure with severe pulmonary HTN. SOB improving. Per Dr. Kruse, multiple CT scans had shown no evidence of ILD. Remains on 5 L NC. * Pulmonology following. Appreciate their recs. * Wean down oxygen as tolerated. * Check high-resolution CT of the Chest upon stabilization of acute issues. * Outpatient sleep study to be performed as outpatient to exclude JV. #Pulmonary nodule: History of pulmonary nodule. * Follow-up CT scan as outpatient. Infectious Diseases: Afebrile and without leukocytosis. No signs or symptoms of infection. Cardiovascular: #Acute on chronic HFpEF and right-sided heart failure: Unclear whether severe pulmonary HTN is primary or 2/2 left heart disease in the setting of rheumatic valvular disease s/p mitral valve replacement. Recent left and right heart catheterization was inconclusive. Remains on the IV dobutamine drip as attempts to discontinue drip were unsuccessful given subsequent drop in patient's blood pressure. Received first dose of digoxin last night. Digoxin level 0.8 today ( reference range: 0.8-2). * Cardiology following. Appreciate their recs. * Continue to monitor strict I/Os and daily weights. * Discontinue dobutamine IV drip. * Continue digoxin 0.25 mg daily to improve RV contractility. Decrease dose to 0.125 mg daily tomorrow as tolvaptan can result in increased serum levels. * Check digoxin level on Monday. * If blood pressure drops again, administer NS boluses to increase SBP to 90 as patient is very dependent on preload in the setting of right ventricular failure. * Continue to hold Lasix. * Continue prior to admission metoprolol 50 mg PO BID. * Continue leg elevation and bilateral Ritchie wraps for compression. #Atrial fibrillation: Remains in atrial fibrillation with well-controlled heart rate. * Continue metoprolol 50 mg PO BID for rate control * Continue warfarin for anti-coagulation. Currently holding in the setting of supratherapeutic INR. #PAD: Continues to have leg cramps. Arterial doppler US of BLE suggestive of possible inflow disease. * Consider further work-up as outpatient. Hematology: #Supratherapeutic INR: INR further increased to 9.52 this AM despite holding warfarin yesterday. Repeat INR 7.34 in three hours. No evidence of bleeding or bruising. * Continue to hold warfarin. * Administer 5 mg of IV vitamin K. * Continue to monitor INR daily and start warfarin when INR is appropriate. Goal is between 2.5 and 3.5 given prosthetic mitral valve. Metabolic: #RADHA: Creatinine was 0.8 on admission but has been trending up, 1.3 today. This is most likely pre-renal in etiology secondary to cardiorenal syndrome but ATN cannot be ruled out. AM cortisol within normal limits. * Nephrology following. Appreciate their recs. * Continue to monitor lytes and kidney function. Replete to K > 4 and Mg > 2. * IVF discontinued. * Avoid nephrotoxic agents including NSAIDs and IV contrast. * Avoid RITCHIE inhibitors and ARBs. #Hyponatremia: Na further decreased to 119 last night. Normal saline was discontinued and patient was started on tolvaptan with improvement of Na to 125. Hyponatremia is most likely chronic in the setting of severe right-sided heart failure and overdiuresis. * Restrict fluids to 600 mL per day including total PO and IV fluids. * Continue tolvaptan 15 mg PO daily. * Continue to monitor Na closely and frequently. #Hypothyroidism: * Continue levothyroxine 50 mcg daily. Alimentary: CHF Diet - Regular diet and thin liquids. * Swallow eval was performed following episode of choking. Patient passed eval. It is suspected that the choking episode occurred secondary to fluid restriction. Patient was instructed to avoid eggs. Neurological: AAO x3. No issues. DVT/Prophylaxis: pharmacological Code Status: Full Code
[2016-11-25 08:00] VITALS: BP 118/64
[2016-11-25 08:23] LABS: PT 75.6 SEC (9.4-12.5)
--- NOTE | 2016-11-25 08:23 | PN- Pulmonary ---
Subjective HPI/Critical Care Issues: Patient denies shortness of breath edema is for the most part resolved. Blood pressure is marginal and hyponatremia is being addressed. sHe continues to be oxygen dependent. Objective Current Medications: Current Medications Sig/Nicole Start time Last Medication Dose Route Stop Time Status Admin Acetaminophen 650 MG Q6P PRN 11/22 0230 AC PO Diclofenac Sodium 1 SANDRA 4 TIMES/DAY 11/22 1530 AC 11/24 TOP 1052 Digoxin 0.25 MG 1700 11/24 1700 AC 11/24 PO 1810 Dobutamine HCl 250 MG Q24H 11/24 1500 AC 11/24 Dextrose/Water 250 ML IV 2151 Dobutamine HCl 250 MG Q24H 11/23 1345 DC 11/24 Dextrose/Water 250 ML IV 1054 Ezetimibe 10 MG DAILY 11/22 1000 AC 11/24 PO 1051 Gemfibrozil 600 MG BID 11/22 1000 AC 11/24 PO 2203 Levothyroxine Sodium 0.05 MG DAILY AC 11/22 0700 AC 11/25 PO 0704 Magnesium Oxide 400 MG ONE ONE 11/25 0800 DC PO 11/25 0801 Metoprolol Tartrate 50 MG .STK-MED ONE 11/24 0958 DC PO 11/24 0959 Metoprolol Tartrate 50 MG BID 11/22 0030 AC 11/24 PO 2203 Oxycodone/ 1 TAB Q6P PRN 11/22 0230 AC Acetaminophen PO Oxycodone/ 2 TAB Q6P PRN 11/22 0230 AC 11/25 Acetaminophen PO 0036 Oxymetazoline HCl 2 SPRAY BID 11/23 1533 AC DAO Polyethylene Glycol 17 GM DAILY 11/24 2140 AC PO Senna/Docusate Sodium 1 TAB DAILY 11/24 2140 AC PO Sodium Chloride 500 ML CONTINOUS INFUSION 11/25 0100 CAN IV Sodium Chloride 1,000 ML Q20H 11/24 1400 DC 11/24 IV 11/25 0700 2357 Sodium Chloride 500 ML BOLUS ONE 11/24 1400 DC 11/24 IV 11/24 1459 1530 Sodium Chloride 500 ML BOLUS ONE 11/24 1245 DC 11/24 IV 11/24 1444 1256 Tolvaptan 15 MG DAILY 11/25 0115 AC 11/25 PO 0145 Vital Signs & I&O Last 24 Hrs of Vitals and I&O: Vital Signs Date Time Temp Pulse Resp B/P Pulse O2 O2 Flow FiO2 Ox Delivery Rate 11/25 0400 91 Nasal 5.0L Cannula 11/25 0000 92 Nasal 5.0L Cannula 11/25 0000 97.3 85 20 96/62 92 Nasal 5.0L Cannula 11/24 2203 100 20 118/80 11/24 2151 104 20 120/75 11/24 2000 95 Nasal 5.0L Cannula 11/24 1810 92 104/65 11/24 1600 98.0 80 16 98/68 91 Nasal 6.0L Cannula 11/24 1600 92 Nasal 6.0L Cannula 11/24 1200 91 Nasal 6.0L Cannula 11/24 1054 101 117/79 11/24 1051 99 117/79 Intake & Output 11/25 1600 11/25 0800 11/25 0000 Intake Total 711 1524 Output Total 250 Balance 711 1274 Intake, IV 511 1404 Intake, Oral 200 120 Output, Urine 250 Oxygen saturation 5 L 92% exam for chest shows somewhat diminished breath sounds there are no wheezes or crackles cardiac exam shows a regular S1 and S2 there is markedly diminished edema Impression/Plan Impression/Plan Impression/Plan: 76-year-old with COPD and pulmonary hypertension in the setting of rheumatic heart disease and mitral valve replacement. Multiple CT scans do not show evidence of interstitial lung disease. Unfortunately her catheterization was not able to determine whether her pulmonary hypertension was cardiac in origin, she appears to have significant right heart failure, she does have a pulmonary nodule which will require follow-up. Respiratory status is slowly improving and can taper FiO2 his saturations allow. No further pulmonary suggestions Recommendations: High-resolution CT scan of the chest once acute problems have stabilized. Outpatient sleep study to exclude obstructive sleep apnea. Patient appears to be approaching dry weight. Taper FiO2 his saturations allow. No further pulmonary suggestions
--- NOTE | 2016-11-25 08:47 | NUR ---
PT CHOKING ON EGGS AT BREAKFAST. PT ABLE TO COUGH UP EGGS. MADE NPO FOR PENDING SWALLOW EVAL
--- NOTE | 2016-11-25 08:48 | NUR ---
0700 PT 75.6 INR 7.34. VIT ORDERED
--- NOTE | 2016-11-25 09:53 | PN- Nephrology ---
Assessment/Plan Assessment: 1. RADHA: in prerenal pattern --> prob cardiorenal; can't exclude ATN post hypotension but GFR stable 2. Hyponatremia: mod- severe; chronic. Needs continued fluid restrictioon po & IV as continue on tolvaptan Suggestion: 1. Fluid restrict 600 ml per day total po & IV 2. ? d/c Dobutamine 3. tolvaptan 15 mg po qday to start 4. Dig dose should be reduced to 0.125 mg qday as watch level Subjective Subjective: Mild SOB Vomitied earlier today BP better --> off IV NS but still on Dobutamine drip Trying to stick to water restriction - required tolvaptan po this AM Objective Vital Signs and I&Os Vital Signs Date Time Temp Pulse Resp B/P Pulse O2 O2 Flow FiO2 Ox Delivery Rate 11/25 0800 92 Nasal 5.0L Cannula 11/25 0400 91 Nasal 5.0L Cannula 11/25 0000 92 Nasal 5.0L Cannula 11/25 0000 97.3 85 20 96/62 92 Nasal 5.0L Cannula 11/24 2203 100 20 118/80 11/24 2151 104 20 120/75 11/24 2000 95 Nasal 5.0L Cannula 11/24 1810 92 104/65 11/24 1600 98.0 80 16 98/68 91 Nasal 6.0L Cannula 11/24 1600 92 Nasal 6.0L Cannula 11/24 1200 91 Nasal 6.0L Cannula 11/24 1054 101 117/79 11/24 1051 99 117/79 Intake & Output 11/25 1600 11/25 0400 11/24 1600 11/24 0400 11/23 1600 11/23 0400 Intake Total 711 1524 1625 844 9789.5 593 Output Total 250 659 331 5677 1800 Balance 711 1274 942 454 -516.5 -1207 Intake, IV 511 1404 882 204 318.5 213 Intake, Oral 200 120 360 350 740 380 Number 0 0 0 Bowel Movements Output, 50 600 Emesis Output, Urine 250 041 937 5049 1200 Patient 187 lb 186 lb Weight Physical Exam General Appearance: well developed/nourished, no apparent distress, alert Head: atraumatic, normal appearance Ears, Nose, Throat: normal ENT inspection Neck: normal inspection Respiratory: no respiratory distress, quiet respiration, lungs clear Cardiovascular: irregularly irregular Abdomen: soft, non-tender, distention Extremities: swelling, wrapped legs Neurologic/Psychiatric: awake, alert Current Medications: Current Medications Sig/Nicole Start time Last Medication Dose Route Stop Time Status Admin Acetaminophen 650 MG Q6P PRN 11/22 0230 AC PO Diclofenac Sodium 1 SANDRA 4 TIMES/DAY 11/22 1530 AC 11/24 TOP 1052 Digoxin 0.25 MG 1700 11/24 1700 AC 11/24 PO 1810 Dobutamine HCl 250 MG Q24H 11/24 1500 AC 11/24 Dextrose/Water 250 ML IV 2151 Dobutamine HCl 250 MG Q24H 11/23 1345 DC 11/24 Dextrose/Water 250 ML IV 1054 Ezetimibe 10 MG DAILY 11/22 1000 AC 11/24 PO 1051 Gemfibrozil 600 MG BID 11/22 1000 AC 11/24 PO 2203 Levothyroxine Sodium 0.05 MG DAILY AC 11/22 0700 AC 11/25 PO 0704 Magnesium Oxide 400 MG ONE ONE 11/25 0800 CAN PO 11/25 0801 Metoprolol Tartrate 50 MG .STK-MED ONE 11/24 0958 DC PO 11/24 0959 Metoprolol Tartrate 50 MG BID 11/22 0030 AC 11/24 PO 2203 Oxycodone/ 1 TAB Q6P PRN 11/22 0230 AC Acetaminophen PO Oxycodone/ 2 TAB Q6P PRN 11/22 0230 AC 11/25 Acetaminophen PO 0036 Oxymetazoline HCl 2 SPRAY BID 11/23 1533 AC DAO Phytonadione 2.5 MG ONCE ONE 11/25 0830 DC PO 11/25 0831 Polyethylene Glycol 17 GM DAILY 11/24 2140 AC PO Senna/Docusate Sodium 1 TAB DAILY 11/24 2140 AC PO Sodium Chloride 500 ML CONTINOUS INFUSION 11/25 0100 CAN IV Sodium Chloride 1,000 ML Q20H 11/24 1400 DC 11/24 IV 11/25 0700 2357 Sodium Chloride 500 ML BOLUS ONE 11/24 1400 DC 11/24 IV 11/24 1459 1530 Sodium Chloride 500 ML BOLUS ONE 11/24 1245 DC 11/24 IV 11/24 1444 1256 Tolvaptan 15 MG DAILY 11/25 0115 AC 11/25 PO 0145 Results Pertinent Lab Results: Laboratory Tests 11/25 11/25 11/25 0700 0500 0400 Chemistry Sodium (137 - 145 mmol/L) 124 L 125 L Potassium (3.5 - 5.1 mmol/L) 5.1 4.4 Chloride (98 - 107 mmol/L) 86 L 92 L Carbon Dioxide (22 - 30 mmol/L) 28 24 Anion Gap (5 - 16) 10 9 BUN (7 - 17 mg/dL) 23 H 20 H Creatinine (0.5 - 1.0 mg/dL) 1.3 H 1.2 H Estimated GFR (>60 ml/min) 40 L 43 L Glucose (65 - 99 mg/dL) 83 81 Calcium (8.4 - 10.2 mg/dL) 8.9 7.6 L Phosphorus (2.5 - 4.5 mg/dL) 4.8 H 4.1 Magnesium (1.6 - 2.3 mg/dL) 2.2 1.9 Total Bilirubin (0.2 - 1.3 mg/dL) 2.1 H 1.6 H AST (14 - 36 U/L) 38 H 29 ALT (9 - 52 U/L) 31 29 Albumin (3.5 - 5.0 g/dL) 3.8 2.8 L Cortisol AM Sample (4.46 - 22.7 ug/dL) Cancelled 21.1 Coagulation PT (9.4 - 12.5 SEC) 75.6 *H Cancelled 97.8 *H INR (0.90 - 1.19) 7.34 *H Cancelled 9.52 *H Hematology CBC w Diff NO MAN DIFF REQ WBC (4.8 - 10.8 /CUMM) 8.1 RBC (4.20 - 5.40 /CUMM) 4.00 L Hgb (12.0 - 16.0 G/DL) 12.4 Hct (37 - 47 %) 37.3 MCV (81.0 - 99.0 FL) 93.3 MCH (27.0 - 31.0 PG) 31.1 H RDW (11.5 - 14.5 %) 16.0 H Plt Count (130 - 400 /CUMM) 199 MPV (7.4 - 10.4 FL) 7.9 Gran % (42.2 - 75.2 %) 82.7 H Lymphocytes % (20.5 - 51.1 %) 8.5 L Monocytes % (1.7 - 9.3 %) 7.7 Eosinophils % (0 - 5 %) 0.9 Basophils % (0.0 - 2.0 %) 0.2 Absolute Granulocytes (1.4 - 6.5 /CUMM) 6.7 H Absolute Lymphocytes (1.2 - 3.4 /CUMM) 0.7 L Absolute Monocytes (0.10 - 0.60 /CUMM) 0.6 Absolute Eosinophils (0.0 - 0.7 /CUMM) 0.1 Absolute Basophils (0.0 - 0.2 /CUMM) 0 PUBS MCHC (33.0 - 37.0 G/DL) 33.3 11/25 11/24 11/24 0300 2345 0700 Chemistry Sodium (137 - 145 mmol/L) Cancelled 119 *L Potassium (3.5 - 5.1 mmol/L) Cancelled 4.5 Chloride (98 - 107 mmol/L) Cancelled 87 L Carbon Dioxide (22 - 30 mmol/L) Cancelled 24 Anion Gap (5 - 16) Cancelled 8 BUN (7 - 17 mg/dL) Cancelled 21 H Creatinine (0.5 - 1.0 mg/dL) Cancelled 1.2 H Estimated GFR (>60 ml/min) 43 L Glucose (65 - 99 mg/dL) Cancelled 105 H Calcium (8.4 - 10.2 mg/dL) Cancelled 8.2 L Phosphorus (2.5 - 4.5 mg/dL) Cancelled 4.3 Magnesium (1.6 - 2.3 mg/dL) Cancelled 2.0 Total Bilirubin (0.2 - 1.3 mg/dL) Cancelled 1.8 H AST (14 - 36 U/L) Cancelled 30 ALT (9 - 52 U/L) Cancelled 26 Albumin (3.5 - 5.0 g/dL) Cancelled 3.0 L Coagulation PT (9.4 - 12.5 SEC) 56.2 *H INR (0.90 - 1.19) 5.44 *H Hematology CBC w Diff NO MAN DIFF REQ WBC (4.8 - 10.8 /CUMM) 8.6 RBC (4.20 - 5.40 /CUMM) 4.27 Hgb (12.0 - 16.0 G/DL) 13.1 Hct (37 - 47 %) 39.8 MCV (81.0 - 99.0 FL) 93.1 MCH (27.0 - 31.0 PG) 30.8 RDW (11.5 - 14.5 %) 16.0 H Plt Count (130 - 400 /CUMM) 210 MPV (7.4 - 10.4 FL) 8.0 Gran % (42.2 - 75.2 %) 82.8 H Lymphocytes % (20.5 - 51.1 %) 7.0 L Monocytes % (1.7 - 9.3 %) 8.6 Eosinophils % (0 - 5 %) 1.3 Basophils % (0.0 - 2.0 %) 0.3 Absolute Granulocytes (1.4 - 6.5 /CUMM) 7.1 H Absolute Lymphocytes (1.2 - 3.4 /CUMM) 0.6 L Absolute Monocytes (0.10 - 0.60 /CUMM) 0.7 H Absolute Eosinophils (0.0 - 0.7 /CUMM) 0.1 Absolute Basophils (0.0 - 0.2 /CUMM) 0 PUBS MCHC (33.0 - 37.0 G/DL) 33.0 11/24 11/23 0430 0430 Chemistry Sodium (137 - 145 mmol/L) 124 L 130 L Potassium (3.5 - 5.1 mmol/L) 4.3 3.6 Chloride (98 - 107 mmol/L) 87 L 92 L Carbon Dioxide (22 - 30 mmol/L) 26 28 Anion Gap (5 - 16) 10 11 BUN (7 - 17 mg/dL) 20 H 17 Creatinine (0.5 - 1.0 mg/dL) 1.2 H 0.9 Estimated GFR (>60 ml/min) 43 L > 60 Glucose (65 - 99 mg/dL) 88 110 H Calcium (8.4 - 10.2 mg/dL) 8.7 8.5 Phosphorus (2.5 - 4.5 mg/dL) 4.7 H 4.3 Magnesium (1.6 - 2.3 mg/dL) 2.0 1.8 Total Bilirubin (0.2 - 1.3 mg/dL) 2.0 H 2.2 H AST (14 - 36 U/L) 32 30 ALT (9 - 52 U/L) 29 25 Albumin (3.5 - 5.0 g/dL) 3.3 L 3.2 L Coagulation PT (9.4 - 12.5 SEC) 32.8 H INR (0.90 - 1.19) 3.16 H Hematology CBC w Diff NO MAN DIFF REQ NO MAN DIFF REQ WBC (4.8 - 10.8 /CUMM) 7.9 6.6 RBC (4.20 - 5.40 /CUMM) 4.00 L 4.08 L Hgb (12.0 - 16.0 G/DL) 12.4 12.6 Hct (37 - 47 %) 37.6 38.5 MCV (81.0 - 99.0 FL) 93.9 94.4 MCH (27.0 - 31.0 PG) 31.0 30.8 RDW (11.5 - 14.5 %) 15.8 H 16.3 H Plt Count (130 - 400 /CUMM) 207 189 MPV (7.4 - 10.4 FL) 7.8 7.9 Gran % (42.2 - 75.2 %) 81.2 H 76.6 H Lymphocytes % (20.5 - 51.1 %) 9.3 L 12.1 L Monocytes % (1.7 - 9.3 %) 7.8 9.4 H Eosinophils % (0 - 5 %) 1.4 1.7 Basophils % (0.0 - 2.0 %) 0.3 0.2 Absolute Granulocytes (1.4 - 6.5 /CUMM) 6.5 5.0 Absolute Lymphocytes (1.2 - 3.4 /CUMM) 0.7 L 0.8 L Absolute Monocytes (0.10 - 0.60 /CUMM) 0.6 0.6 Absolute Eosinophils (0.0 - 0.7 /CUMM) 0.1 0.1 Absolute Basophils (0.0 - 0.2 /CUMM) 0 0 PUBS MCHC (33.0 - 37.0 G/DL) 33.0 32.7 L Imaging/Other Studies: CXR: Cardiomegaly. No evidence of cardiac failure.
--- NOTE | 2016-11-25 12:09 | PN- Cardiology ---
Subjective Subjective: * Eva was lightheaded this morning but breathing is improved. * Hypotensive yesterday when taken off dobutamine. * Severe hyponatremia is being addressed via fluid restriction and Tolvaptan. Sodium is improving. * Severely elevated INR. Objective Vital Signs and I&Os Vital Signs Date Time Temp Pulse Resp B/P Pulse O2 O2 Flow FiO2 Ox Delivery Rate 11/25 08 92 Nasal 5.0L Cannula 11/25 08 97.1 95 30 118/64 92 Nasal 5.0L Cannula 11/25 0400 91 Nasal 5.0L Cannula 11/25 0000 92 Nasal 5.0L Cannula 11/25 0000 97.3 85 20 96/62 92 Nasal 5.0L Cannula 11/24 2203 100 20 118/80 11/24 2151 104 20 120/75 11/24 2000 95 Nasal 5.0L Cannula 11/24 1810 92 104/65 11/24 1600 98.0 80 16 98/68 91 Nasal 6.0L Cannula 11/24 1600 92 Nasal 6.0L Cannula Intake & Output 11/25 1600 11/25 0800 11/25 0000 11/24 1600 11/24 0800 11/24 0000 Intake Total 711 1524 798 444 554 Output Total 250 200 100 100 Balance 711 1274 598 344 454 Intake, IV 511 1404 678 204 204 Intake, Oral 200 120 120 240 350 Number 0 0 Bowel Movements Output, 50 Emesis Output, Urine 250 150 100 100 Patient 187 lb Weight Physical Exam: General: WD/ WN female in NAD; alert and oriented x 3 Neck: positive JVD Heart: irregularly irregular Lungs: clear bilaterally Extremities: 1+ bipedal edema Assessment/Plan Assessment/Plan * Patient is noted to drop her BP with discontinuation of Dobutamine. We will again stop dobutamine. If her BP drops then she will need enough NS to raise her BP to 90mmHg. This patient will be very dependent on adequate preload due to her RV failure and elevated RV pressures. * Continue digoxin 0.25mg today to load her then decreased to 0.125mg daily and check her level on Monday. It is understood that the Tolvaptan will raise the serum level of this drug which we are giving to improve RV contractility. * Hold coumadin and follow INR. This patient will need 5mg of Vitamin K today. Goal INR is 2.0. * Follow electrolytes * Please follow renal and pulmonary recommendations. Continue telemetry? Yes
[2016-11-25 16:00] VITALS: BP 118/70
--- NOTE | 2016-11-25 16:38 | NUR ---
DOBUTAMINE TURNED OFF AT 1200. PT BP HAS TOLERATED. REMAINS ON 5L NC W EXERTIONAL SOB. NON LABORED AT REST. SATS 91%. SWALLOW EVAL OBTAINED. PT PLACED ON CHF - REGULAR DIET.
--- NOTE | 2016-11-25 20:22 | NUR ---
PT A/OX3, FOLLOWS COMMANDS. DENIES ANY PAIN AT PRESENT. BREATH SOUNDS CLEAR WITH FINE CRACKLES AT BASES BILATERALLY. SOBOE. NO COUGH OR RESP DISTRESS NOTED AT PRESENT. SEE FLOW SHEET FOR VS, 02 SATS, I/O'S. MONITOR SHOWS AFIB WITH OCC PVC'S NOTED. BP STABLE AT PRESENT. ABD SOFT, WITH ASCITES, DISTENDED, POSITIVE BOWEL SOUNDS. OOB TO COMMODE-VOIDING IN SM AMTS. ON 600ML FLUID RESTRICTION.SKIN INTACT. BILATERAL LEGS WRAPPED WITH CHIN WRAP-C/D/I-3+ BLE EDEMA.
[2016-11-26] VITALS: BP 78/50
--- NOTE | 2016-11-26 00:13 | NUR ---
BP-78/50-REPORTED TO DR. ROSS-500ML NS GIVEN ORDERED-SEE EMAR-WILL MONITOR. PT DENIES ANY DIZZINESS OR LIGHTHEADNESS AT PRESENT, REMAINS A/OX3.
[2016-11-26 06:08] LABS: ABSOLUTE BASOPHIL COUNT 0 /CUMM (0.0-0.2); ABSOLUTE EOSINOPHIL COUNT 0.1 /CUMM (0.0-0.7); ABSOLUTE GRANULOCYTE CT 6.9 /CUMM (1.4-6.5); ABSOLUTE LYMPH COUNT 0.9 /CUMM (1.2-3.4); BASOPHIL % 0.2 % (0.0-2.0); EOSINOPHIL % 0.8 % (0-5); GRANULOCYTE % 77.7 % (42.2-75.2); MEAN CORPUSCULAR HGB 30.5 PG (27.0-31.0); MEAN CORPUSCULAR HGB CONC 32.5 G/DL (33.0-37.0); MEAN CORPUSCULAR VOLUME 94.1 FL (81.0-99.0); MEAN PLATELET VOLUME 8.3 FL (7.4-10.4); PLATELET COUNT 240 /CUMM (130-400); RBC DISTRIBUTION WIDTH 15.9 % (11.5-14.5); RED BLOOD CELL CT 4.26 /CUMM (4.20-5.40); WHITE BLOOD CELL COUNT 8.9 /CUMM (4.8-10.8)
--- NOTE | 2016-11-26 06:28 | NUR ---
PT SLEPT MOST OF NIGHT. SBP-90-100'S AFTER BOLUS. PT REMAINS IN AFIB WITH OCC PVC'S NOTED. 02 SATS 89-93% FOR SHIFT. BREATH SOUNDS CLEAR WITH CRACKLES AT BASES BILATERALLY. NO COUGH OR RESP DISTRESS NOTED AT PRESENT. PT WITH EXERTIONAL SOB. 600ML FLUID RESTRICTION MAINTAINED. NO OTHER CHANGE IN PT ASSESSMENTS THOUGHOUT SHIFT
[2016-11-26 08:00] VITALS: BP 104/70
[2016-11-26 08:53] LABS: PT 39.7 SEC (9.4-12.5)
--- NOTE | 2016-11-26 08:57 | PN- CRCU ---
Subjective HPI/Critical Care Issues: Pt seen and examined off dobutamine, off drips labile blood pressure 5LNC 92% a.fib some nausea/improved with zofran INR 3.83 from 7.34 creatinine stable but elevated from baseline at 1.5 from 0.8 on admission Objective Current Medications: Current Medications Sig/Nicole Start time Last Medication Dose Route Stop Time Status Admin Acetaminophen 650 MG Q6P PRN 11/22 0230 AC PO Bisacodyl 10 MG ONCE PRN 11/26 0800 AC CO Diclofenac Sodium 1 SANDRA 4 TIMES/DAY 11/22 1530 AC 11/24 TOP 1052 Digoxin 0.125 MG 0 11/26 1700 AC PO Digoxin 0.25 MG 17011/24 1700 DC 11/25 PO 11/25 2000 1724 Dobutamine HCl 250 MG Q24H 11/24 1500 DC 11/24 Dextrose/Water 250 ML IV 2151 Ezetimibe 10 MG DAILY 11/22 1000 AC 11/25 PO 1225 Gemfibrozil 600 MG BID 11/22 1000 AC 11/25 PO 2142 Levothyroxine Sodium 0.05 MG DAILY AC 11/22 0700 AC 11/26 PO 0555 Magnesium Oxide 400 MG ONE ONE 11/25 0800 CAN PO 11/25 0801 Metoprolol Tartrate 50 MG BID 11/22 0030 AC 11/25 PO 2142 Oxycodone/ 1 TAB Q6P PRN 11/22 0230 AC Acetaminophen PO Oxycodone/ 2 TAB Q6P PRN 11/22 0230 AC 11/25 Acetaminophen PO 2254 Oxymetazoline HCl 2 SPRAY BID 11/23 1533 AC DAO Phytonadione 2.5 MG ONCE ONE 11/25 1215 DC 11/25 PO 11/25 1216 1412 Phytonadione 2.5 MG DAILY 11/25 1201 DC PO Polyethylene Glycol 17 GM DAILY 11/24 2140 AC 11/25 PO 1225 Senna/Docusate Sodium 1 TAB DAILY 11/24 2140 AC 11/25 PO 1225 Sodium Chloride 500 ML BOLUS ONE 11/25 2345 DC 11/25 IV 11/26 0044 2358 Tolvaptan 15 MG 2200 11/25 2200 AC 11/25 PO 2142 Tolvaptan 15 MG DAILY 11/25 0115 DC 11/25 PO 0145 Vital Signs & I&O Last 24 Hrs of Vitals and I&O: Vital Signs Date Time Temp Pulse Resp B/P Pulse O2 O2 Flow FiO2 Ox Delivery Rate 11/26 0400 91 Nasal 5.0L Cannula 11/26 0000 90 Nasal 5.0L Cannula 11/26 0000 97.2 72 28 78/50 90 Nasal 5.0L Cannula 11/25 2142 105 30 135/83 11/25 1999 89 Nasal 5.0L Cannula 11/25 1724 111 118/98 11/25 1600 90 Nasal 5.0L Cannula 11/25 1600 97.3 80 23 118/70 91 Nasal 5.0L Cannula 11/25 1224 94 100/60 11/25 1200 90 Nasal 5.0L Cannula Intake & Output 11/26 1600 11/26 0800 11/26 0000 Intake Total 530 240 Output Total 125 80 Balance 405 160 Intake, IV 500 Intake, Oral 30 240 Number 0 0 Bowel Movements Output, Urine 125 80 Patient 196 lb Weight Exam Other Physical Findings: gen awake and alert heent distended neck veins cvs s1, s2, irregular lungs ctab abd soft bs+ ext 1+ edema Results Last 24 Hrs of Lab Results: Laboratory Tests 11/26/16 0805: PT Pending, INR Pending 11/26/16 0551: Anion Gap 12, Estimated GFR 34 L, Glucose 70, Calcium 9.0, Phosphorus 5.4 H, Magnesium 2.3, Total Bilirubin 2.3 H, AST 35, ALT 25, Albumin 3.5, CBC w Diff NO MAN DIFF REQ, RBC 4.26, MCV 94.1, MCH 30.5, RDW 15.9 H, MPV 8.3, Gran % 77.7 H, Lymphocytes % 10.4 L, Monocytes % 10.9 H, Eosinophils % 0.8, Basophils % 0.2, Absolute Granulocytes 6.9 H, Absolute Lymphocytes 0.9 L, Absolute Monocytes 1.0 H, Absolute Eosinophils 0.1, Absolute Basophils 0, PUBS MCHC 32.5 L 11/25/160: Sodium Cancelled 11/25/16 2326: Anion Gap 12, Estimated GFR 34 L, Glucose 85, Calcium 9.2, Phosphorus 5.1 H, Magnesium 2.3, Total Bilirubin 2.1 H, AST 33, ALT 20, Albumin 3.6 11/25/16 1720: Anion Gap 11, Estimated GFR 36 L, Glucose 80, Calcium 8.7, Phosphorus 4.7 H, Magnesium 2.0, Total Bilirubin 1.8 H, AST 33, ALT 28, Albumin 3.3 L 11/25/16 1045: Anion Gap 8, Estimated GFR 40 L, Glucose 87, Calcium 8.3 L, Phosphorus 4.6 H, Magnesium 2.0, Total Bilirubin 1.7 H, AST 30, ALT 28, Albumin 3.1 L, Digoxin 0.8 Impression/Plan Impression/Plan Impression/Plan: Impression 76 year old woman - COPD - pulmonary hypertension in the setting of rheumatic heart disease and mitral valve replacement - no obvious ILD Plan -f/u cardiology plan -monitor bp, urine output and creatinine -f/u nephrology -agree with studies after optimization of current presentation including outpatient sleep study, HRCT -reduce fio2 as tolerated spo2 >88% -DVT prophylaxis at all times (ALPS) TTS 40 min Code Status: Full Code
--- NOTE | 2016-11-26 10:37 | PN- Resident CRCU ---
Subjective HPI/CRCU Issues: I followed up and examined the patient today. She is comfortable, lying by the side of the bed, does not have any complaints. Blood pressure has been labile and was given 500 mL of normal saline bolus earlier this AM by the nightstaff for low BP. She is off Dobutamine and is taking Digoxin. Objective Vital Signs & I&O Last 8 Hrs of Vitals and I&O: Vital Signs Date Time Temp Pulse Resp B/P Pulse O2 O2 Flow FiO2 Ox Delivery Rate 11/26 1726 68 18 100/60 11/26 1200 95 Nasal 5.0L Cannula Intake & Output 11/26 1600 Intake Total 210 Output Total 200 Balance 10 Intake, IV 0 Intake, Oral 210 Number 1 Bowel Movements Output, Urine 200 Patient 89.925 kg Weight Exam General Appearance: no apparent distress, alert, awake, comfortable, distended abdomen, ascites causing false body weight reading Other Physical Findings: Head: atraumatic, normal appearance Neck: JVD Respiratory: no respiratory distress, lungs clear Cardiovascular: irregularly irregular Gastrointestinal: soft, non-tender, distended, positive bowel sounds Extremities: bilateral lower extremities with Ritchie wrap and 1+ edema Skin: normal color, warm/dry Nutrition Nutrition: P.O. diet Current Medications: Current Medications Sig/Nicole Start time Last Medication Dose Route Stop Time Status Admin Acetaminophen 650 MG Q6P PRN 11/22 0230 AC PO Bisacodyl 10 MG ONCE PRN 11/26 0800 AC 11/26 LA 0921 Diclofenac Sodium 1 SANDRA Q6-PRN PRN 11/26 1730 AC TOP Diclofenac Sodium 1 SANDRA 4 TIMES/DAY 11/22 1530 DC 11/24 TOP 1052 Digoxin 0.125 MG 0 11/26 1700 AC 11/26 PO 1726 Digoxin 0.25 MG 0 11/24 1700 DC 11/25 PO 11/25 2000 1724 Ezetimibe 10 MG DAILY 11/22 1000 AC 11/26 PO 1041 Gemfibrozil 600 MG BID 11/22 1000 AC 11/26 PO 1042 Levothyroxine Sodium 0.05 MG DAILY AC 11/22 0700 AC 11/26 PO 0555 Metoprolol Tartrate 25 MG BID 11/26 2200 AC PO Metoprolol Tartrate 50 MG BID 11/22 0030 DC 11/26 PO 1042 Oxycodone/ 1 TAB Q6P PRN 11/22 0230 AC Acetaminophen PO Oxycodone/ 2 TAB Q6P PRN 11/22 0230 AC 11/25 Acetaminophen PO 2254 Oxymetazoline HCl 2 SPRAY BID PRN 11/27 1000 AC DAO Oxymetazoline HCl 2 SPRAY BID 11/23 1533 AC DAO 11/26 2200 Patient Medication 1 UNIT ONE NR 11/26 1915 AC Teaching ED 11/26 1930 Polyethylene Glycol 17 GM DAILY 11/24 2139 AC 11/26 PO 1041 Senna/Docusate Sodium 1 TAB DAILY 11/24 214 AC 11/26 PO 1041 Sodium Chloride 500 ML BOLUS ONE 11/25 2345 DC 11/25 IV 11/26 0044 2358 Tolvaptan 15 MG 2200 11/25 2199 AC 11/25 PO 2141 Impression/Plan Impression/Problem List Impression: 76 y/o F with PMHx of CAD s/p antigoplasty in 1994, 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 Problem List: 1. RADHA (acute kidney injury) 2. Hyponatremia 3. Pulmonary nodule 4. Supratherapeutic INR 5. Rheumatic valvular disease 6. Acute hypoxemic respiratory failure 7. Right heart failure 8. COPD (chronic obstructive pulmonary disease) 9. ILD (interstitial lung disease) 10. Moderate to severe pulmonary hypertension 11. Atrial fibrillation Plan Respiratory: #Acute on chronic hypoxemic respiratory failure: Secondary to right-sided heart failure with severe pulmonary HTN. SOB improving. Per Dr. Kruse, multiple CT scans had shown no evidence of ILD. Remains on 5 L NC. * Pulmonology following. Appreciate their recs. * Wean down oxygen as tolerated. * High-resolution CT of the Chest upon stabilization of acute issues. * Outpatient sleep study to be performed as outpatient to exclude JV. #Pulmonary nodule: History of pulmonary nodule. * Follow-up CT scan as outpatient. NO OBVIOUS ILD Infectious Diseases: Afebrile and without leukocytosis. No signs or symptoms of infection. Cardiovascular: #Acute on chronic HFpEF and right-sided heart failure: Unclear whether severe pulmonary HTN is primary or 2/2 left heart disease in the setting of rheumatic valvular disease s/p mitral valve replacement. Recent left and right heart catheterization was inconclusive. She is having frequent bouts of low BP and has been on Debutamine drip as well, which is not running anymore. She is on Digoxin now. It is known to have electrolyte balance. * Checking Digoxin level and lytes in AM. Will adjust accordingly. * Cardiology following. Appreciate their recs. * Continue to monitor strict I/Os and daily weights. * Continue digoxin 0.125 mg daily to improve RV contractility. Decrease * If blood pressure drops again, administer NS boluses to increase SBP to 90 as patient is very dependent on preload in the setting of right ventricular failure. She required early this AM. * Continue to hold Lasix. * Her home dose of Metoprolol 50 mg PO BID has been changed to Metoprolol 25mg after discussing her BP issues and her condition with Dr Feliz. * Continue leg elevation and bilateral Ritchie wraps for compression. #Atrial fibrillation: Remains in atrial fibrillation with well-controlled heart rate. * Continue metoprolol 25 mg PO BID for rate control * Continue warfarin for anti-coagulation. Currently holding in the setting of supratherapeutic INR. Today it is 3.83 (decreasing from 7.34 yesterday). #PAD: Continues to have leg cramps. Arterial doppler US of BLE suggestive of possible inflow disease. * Consider further work-up as outpatient. Hematology: #Supratherapeutic INR: INR further increased to 9.52 this AM despite holding warfarin yesterday. Repeat INR 7.34 in three hours. No evidence of bleeding or bruising. * Continue to hold warfarin. * Continue to monitor INR daily and start warfarin when INR is appropriate. Goal is between 2.5 and 3.5 given prosthetic mitral valve. INR today is 3.83. Metabolic: #RADHA: Creatinine was 0.8 on admission but has been trending up, 1.5 today. This is most likely pre-renal in etiology secondary to cardiorenal syndrome but ATN cannot be ruled out. AM cortisol within normal limits. * Nephrology following. Appreciate their recs. * Continue to monitor lytes and kidney function. Replete to K > 4 and Mg > 2. * Avoid nephrotoxic agents including NSAIDs and IV contrast. * Avoid RITCHIE inhibitors and ARBs. #Hyponatremia: Naslightly increased to 124 today. Patient is on tolvaptan with improvement of Na to 125. Hyponatremia is most likely chronic in the setting of severe right-sided heart failure and overdiuresis. * Restrict fluids to 600 mL per day including total PO and IV fluids. * Continue tolvaptan 15 mg PO daily. * Continue to monitor Na closely and frequently. #Hypothyroidism: * Continue levothyroxine 50 mcg daily. Alimentary: CHF Diet - Regular diet and thin liquids. * Swallow eval was performed following episode of choking. Patient passed eval. It is suspected that the choking episode occurred secondary to fluid restriction. Patient was instructed to avoid eggs. Neurological: AAO x3. No issues. DVT/Prophylaxis: pharmacological Code Status: Full Code Problem List: 1. RADHA (acute kidney injury) 2. Hyponatremia Pain Ratin Tomorrow's Labs & Rationales: CBC and ICU bundle (ICU patient) Plan DVT/Prophylaxis: pharmacological Code Status: Full Code Pain Ratin Tomorrow's Labs & Rationales: CBC and ICU bundle (ICU patient) Plan DVT/Prophylaxis: pharmacological Code Status: Full Code
--- NOTE | 2016-11-26 11:02 | NUR ---
A&OX3, DENIES PAIN, AFEBRILE, AFIB, 68, BP 104/70, INR DRAWN RESULT 3.83, LIPS/FINGERS CYANOTIC, TOES DARK BLUE; O2 SAT 92-94% ON 5L HUMIDIFIED NC, EXER. SOB, SCATTERED CRACKLES, ABD DIST. FIRM, ASCITIES, ORDERED/ADM SUPPOSITORY FIRM BROWN BM GUIAC NEG, TOLERATING PO, DENIES N/V; VOIDS ON COMMODE, MAINTAINING 600 MLS FLUID REST. CHAIR SCALE WEIGHT 198.4, B/L LE DISCOLORED, SWOLLEN, CHIN WRAPS IN PLACE,
--- NOTE | 2016-11-26 13:36 | NUR ---
1200 ORTHOSTATIC NEGATIVE, MANUAL BP 112/80, HR 68 1300 MANUAL BP 80/50, HR 63, DENIES CP, SOB, DIZZINESS, DR. BARNES CALLED TO BEDSIDE, NO INTERVENTIONS NEEDED AT THIS TIME
[2016-11-26 16:00] VITALS: BP 98/60
--- NOTE | 2016-11-26 16:00 | NUR ---
ASSUMED CARE OF PATIENT. PATIENT AWAKE AND ALERT ORX3 SITTING IN CHAIR. MONITOR SHOWS AFIB WITH NO ECTOPY RATE OF 60 TO 70. LUNGS WITH MILD RALES TO BASES AND SCATTERED RHONCHI. SAT 92 TO 99% PATIENT VOIDED ON BEDSIDE COMMODE WITH MINIMAL ASSIST. ABD SOFT WITH GOOD BOWEL SOUNDS. LOWER EXTREMITIES WRAPPED WITH CHIN WRAPS DUE TO EDEMA WHICH IS RESOLVING. SKIN DISCOLORED BUT INTACT.
--- NOTE | 2016-11-26 16:01 | PN- Cardiology ---
Subjective Subjective: No specific complaints. Denies any chest discomfort, palpitations, or worsening shortness of breath. Objective Vital Signs and I&Os Vital Signs Date Time Temp Pulse Resp B/P Pulse O2 O2 Flow FiO2 Ox Delivery Rate 11/26 1200 95 Nasal 5.0L Cannula 11/26 1042 72 117/72 11/26 0800 93 Nasal 5.0L Cannula 11/26 0800 97.5 68 25 104/70 93 Nasal 5.0L Cannula 11/26 0400 91 Nasal 5.0L Cannula 11/26 0000 90 Nasal 5.0L Cannula 11/26 0000 97.2 72 28 78/50 90 Nasal 5.0L Cannula 11/25 2142 105 30 135/83 11/25 2000 89 Nasal 5.0L Cannula 11/25 1724 111 118/98 11/25 1600 90 Nasal 5.0L Cannula 11/25 1600 97.3 80 23 118/70 91 Nasal 5.0L Cannula Intake & Output 11/26 1600 11/26 0800 11/26 0000 11/25 1600 11/25 0800 11/25 0000 Intake Total 210 530 240 057 686 2595 Output Total 200 125 80 375 250 Balance 10 405 160 -375 303 5743 Intake, IV 0 500 175 894 9553 Intake, Oral 210 30 240 60 200 120 Number 1 0 0 0 Bowel Movements Output, Urine 200 125 80 375 250 Patient 198 lb 196 lb Weight Physical Exam: Well-developed, overweight elderly female in no acute distress with nasal oxygen in place. Vital signs: See above. Lungs: Decreased breath sounds at the bases. Heart: S1, S2 (irregularly, irregular) with appropriate mechanical valve sounds. Abdomen: Soft, nontender, positive bowel sounds. Extremities: Wrapped lower extremities. Assessment/Plan Assessment/Plan Blood pressure holding off dobutamine and with fluid restriction. No evidence of orthostatic change. Fluid balance over the past 24 hours positive ([id number]=[id number]). INR still elevated but improved at 3.83. Continue on low dose digoxin 0.125 mg daily known drug interaction with Tolvaptan. Continue DVT prophylaxis. Continue to follow-up on nephrology and pulmonary medicine recommendations. Continue telemetry? Yes
[2016-11-27] VITALS: BP 90/60
--- NOTE | 2016-11-27 01:53 | NUR ---
0000 PATIENT RECEIVED ALERT AND ORIENTED X3, SKIN PINK, WARM AND DRY, O2 AT 5L/MIN VIA NC- CONTINUOUS O2 SAT 93%, BREATHE SOUNDS CLEAR BUT DIMINISHED AT BOTH BASES, CLOSING SPECIALIST ATRIAL FIB WITH HEART RATE 60'S TO 70'S/MIN, BP 90/60 AT THIS TIME, ABDOMEN SOFT, +BS, PATIENT STATES PAIN FREE AFTER EARLIER PAIN MED DOSE, BLE WRAPPED IN CHIN BANDAGES- PATIENT REFUSES TO ELEVATED LE, SETTLED FOR SLEEP, CALL LIGHT WITHIN REACH
[2016-11-27 05:23] LABS: ABSOLUTE BASOPHIL COUNT 0 /CUMM (0.0-0.2); ABSOLUTE EOSINOPHIL COUNT 0.2 /CUMM (0.0-0.7); ABSOLUTE GRANULOCYTE CT 5.7 /CUMM (1.4-6.5); ABSOLUTE LYMPH COUNT 1.2 /CUMM (1.2-3.4); ABSOLUTE MONOCYTE COUNT 0.9 /CUMM (0.10-0.60); BASOPHIL % 0.6 % (0.0-2.0); MEAN CORPUSCULAR HGB 30.5 PG (27.0-31.0); MEAN CORPUSCULAR HGB CONC 32.5 G/DL (33.0-37.0); MEAN CORPUSCULAR VOLUME 93.7 FL (81.0-99.0); MEAN PLATELET VOLUME 8.2 FL (7.4-10.4); PLATELET COUNT 205 /CUMM (130-400); RBC DISTRIBUTION WIDTH 15.8 % (11.5-14.5); RED BLOOD CELL CT 4.98 /CUMM (4.20-5.40); WHITE BLOOD CELL COUNT 8.1 /CUMM (4.8-10.8)
[2016-11-27 05:44] LABS: HEMATOCRIT 46.7 % (37-47)
[2016-11-27 08:00] VITALS: BP 108/66
--- NOTE | 2016-11-27 08:36 | PN- Resident CRCU ---
Subjective HPI/CRCU Issues: No acute events overnight. Her blood pressure has been stable around 90-100s/ 60s. Per nursing staff, she has been adhering to her fluid restriction. Patient was seen and examined this morning. She feels well and has no complaints. She denies nausea or vomiting. She remains on 5 L NC. Objective Vital Signs & I&O Last 8 Hrs of Vitals and I&O: Intake & Output 11/27 1600 Intake Total 240 Output Total 550 Balance -310 Intake, Oral 240 Number 1 Bowel Movements Output, Urine 550 Patient 91.682 kg Weight Exam General Appearance: well developed/nourished, no apparent distress, alert, awake , comfortable Head: atraumatic, normal appearance Ears, Nose, Throat: moist mucus membranes Neck: JVD Respiratory: no respiratory distress, lungs clear Cardiovascular: irregularly irregular, normal S1 and S2, no murmurs, rubs or gallops Gastrointestinal: soft, non-tender, distended, positive bowel sounds Extremities: bilateral lower extremities with Ritchie wrap and 1+ edema Skin: warm/dry Current Medications: Current Medications Sig/Nicole Start time Last Medication Dose Route Stop Time Status Admin Acetaminophen 650 MG Q6P PRN 11/22 0230 AC PO Bisacodyl 10 MG ONCE PRN 11/26 0800 AC 11/26 [place] 0921 Diclofenac Sodium 1 SANDRA Q6-PRN PRN 11/26 1730 AC TOP Diclofenac Sodium 1 SANDRA 4 TIMES/DAY 11/22 1530 DC 11/24 TOP 1052 Digoxin 0.125 MG 1700 11/26 1700 AC 11/26 PO 1726 Ezetimibe 10 MG DAILY 11/22 1000 AC 11/27 PO 0908 Gemfibrozil 600 MG BID 11/22 1000 AC 11/27 PO 0908 Levothyroxine Sodium 0.05 MG DAILY AC 11/22 0700 AC 11/27 PO 0734 Metoprolol Tartrate 25 MG BID 11/26 2200 AC 11/27 PO 0908 Metoprolol Tartrate 50 MG BID 11/22 0030 DC 11/26 PO 1042 Oxycodone/ 1 TAB Q6P PRN 11/22 0230 AC Acetaminophen PO Oxycodone/ 2 TAB Q6P PRN 11/22 0230 AC 11/26 Acetaminophen PO 2210 Oxymetazoline HCl 2 SPRAY BID PRN 11/27 1000 AC DAO Oxymetazoline HCl 2 SPRAY BID 11/23 1533 DC DAO 11/26 2199 Patient Medication 1 UNIT ONE NR 11/26 1915 DC 11/27 Teaching ED 11/26 193 09 Polyethylene Glycol 17 GM DAILY 11/24 2139 AC 11/27 PO 0905 Senna/Docusate Sodium 1 TAB DAILY 11/24 2139 AC 11/27 PO 0908 Tolvaptan 15 MG 11/25 AC 11/26 PO 2210 Results Results: Laboratory Tests 11/27 11/27 1351 0500 Chemistry Sodium (137 - 145 mmol/L) 126 L Potassium (3.5 - 5.1 mmol/L) 5.3 H Chloride (98 - 107 mmol/L) 89 L Carbon Dioxide (22 - 30 mmol/L) 24 Anion Gap (5 - 16) 13 BUN (7 - 17 mg/dL) 36 H Creatinine (0.5 - 1.0 mg/dL) 1.8 H Estimated GFR (>60 ml/min) 27 L Glucose (65 - 99 mg/dL) 75 Calcium (8.4 - 10.2 mg/dL) 9.5 Phosphorus (2.5 - 4.5 mg/dL) 5.5 H Magnesium (1.6 - 2.3 mg/dL) 2.6 H Total Bilirubin (0.2 - 1.3 mg/dL) 2.5 H AST (14 - 36 U/L) 34 ALT (9 - 52 U/L) 26 Albumin (3.5 - 5.0 g/dL) 3.9 Hematology CBC w Diff NO MAN DIFF REQ WBC (4.8 - 10.8 /CUMM) 8.1 RBC (4.20 - 5.40 /CUMM) 4.98 Hgb (12.0 - 16.0 G/DL) 15.2 Hct (37 - 47 %) 46.7 MCV (81.0 - 99.0 FL) 93.7 MCH (27.0 - 31.0 PG) 30.5 RDW (11.5 - 14.5 %) 15.8 H Plt Count (130 - 400 /CUMM) 205 MPV (7.4 - 10.4 FL) 8.2 Gran % (42.2 - 75.2 %) 70.0 Lymphocytes % (20.5 - 51.1 %) 14.9 L Monocytes % (1.7 - 9.3 %) 11.5 H Eosinophils % (0 - 5 %) 3.0 Basophils % (0.0 - 2.0 %) 0.6 Absolute Granulocytes (1.4 - 6.5 /CUMM) 5.7 Absolute Lymphocytes (1.2 - 3.4 /CUMM) 1.2 Absolute Monocytes (0.10 - 0.60 /CUMM) 0.9 H Absolute Eosinophils (0.0 - 0.7 /CUMM) 0.2 Absolute Basophils (0.0 - 0.2 /CUMM) 0 PUBS MCHC (33.0 - 37.0 G/DL) 32.5 L Toxicology Digoxin (0.8 - 2.0 ng/mL) 1.4 Urines Ur Random Creatinine Cancelled U Random Total Protein Cancelled Impression/Plan Impression/Problem List Impression: 76 y/o F with PMHx of CAD s/p antigoplasty in 1994, 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 Problem List: 1. Pulmonary nodule 2. Acute hypoxemic respiratory failure 3. (HFpEF) heart failure with preserved ejection fraction 4. Right heart failure 5. Rheumatic valvular disease 6. Supratherapeutic INR 7. RADHA (acute kidney injury) 8. Hyponatremia 9. Moderate to severe pulmonary hypertension 10. Atrial fibrillation Pain Ratin Tomorrow's Labs & Rationales: CBC and ICU bundle (ICU patient) INR in the setting of warfarin therapy Plan Respiratory: #Acute on chronic hypoxemic respiratory failure: Secondary to right-sided heart failure with severe pulmonary HTN. Per Dr. Kurse, multiple CT scans had shown no evidence of ILD. Remains on 5 L NC. * Pulmonology following. Appreciate their recs. * Wean down oxygen as tolerated. * Check high-resolution CT Chest upon stabilization of acute issues. * Outpatient sleep study to be performed as outpatient to exclude JV. #Pulmonary nodule: History of pulmonary nodule. * Follow-up CT scan as outpatient. Infectious Diseases: Afebrile and without leukocytosis. No signs or symptoms of infection. Cardiovascular: #Acute on chronic HFpEF and right-sided heart failure: Unclear whether severe pulmonary HTN is primary or 2/2 left heart disease in the setting of rheumatic valvular disease s/p mitral valve replacement as recent left and right heart catheterization was inconclusive. Off dobutamine drip with stable blood pressures. Digoxin level this morning therapeutic at 1.4 (reference range: 0.8- 2.0). * Cardiology following. Appreciate their recs. * Continue to monitor strict I/Os and daily weights. * Continue digoxin 0.125 mg PO daily. * If blood pressure drops again, administer NS boluses to increase SBP to 90 as patient is very dependent on preload in the setting of right ventricular failure. * Continue to hold Lasix. * Continue metoprolol 25 mg PO BID. * Continue leg elevation and bilateral Ritchie wraps for compression. #Atrial fibrillation: Remains in atrial fibrillation with well-controlled heart rate. * Continue metoprolol 25 mg PO BID for rate control * Continue warfarin for anti-coagulation. Currently holding in the setting of supratherapeutic INR. #PAD: Continues to have leg cramps. Arterial doppler US of BLE suggestive of possible inflow disease. * Consider further work-up as outpatient. Hematology: #Supratherapeutic INR: INR has been trending down after holding warfarin, 3.83 today. * Continue to hold warfarin. * Continue to monitor INR daily and start warfarin when INR is appropriate. Goal is between 2.5 and 3.5 given prosthetic mitral valve. Metabolic: #RADHA: Creatinine has further increased to 1.8 today. Most likely etiology is cardiorenal syndrome in the setting of right-sided heart failure, which would be consistent with the bump in creatinine after discontinuation of dobutamine drip as patient is highly dependent on preload. * Nephrology following. Appreciate their recs. * Continue to monitor lytes and kidney function. Replete to K > 4 and Mg > 2. * Monitor off IVF given anasarca. * Check renal US, urinalysis and spot urine protein creatinine ratio. * Avoid nephrotoxic agents including NSAIDs and IV contrast. * Avoid RITCHIE inhibitors and ARBs. #Hyponatremia: Na has improved to 126 with tolvaptan. Hyponatremia is most likely chronic hypervolemic hyponatremia in the setting of right-sided heart failure. * Continue 600 mL fluid restriction. * Continue tolvaptan 15 mg PO daily. #Hypothyroidism: * Continue levothyroxine 50 mcg daily. Alimentary: CHF Diet with 2 g K restriction - Avoid eggs given episode of choking. Neurological: AAO x3. No issues. DVT/Prophylaxis: pharmacological Code Status: Full Code
--- NOTE | 2016-11-27 09:16 | NUR ---
0600 PATIENT HAS SLEPT WELL OVERNIGHT, REMAINS ALERT AND ORIENTED X3, DENIES ANY C/O DISCOMFORT THIS AM, SBP STABLE 88 TO 110'S/OVERNIGHT, PATIENT ADHERING TO FLUID RESTRICTION, AWAITING AM MD ROUNDS
--- NOTE | 2016-11-27 10:30 | PN- CRCU ---
Subjective HPI/Critical Care Issues: pt seen and examined doing well comfortable without events no n/v/d/c bp stable off dobutamine Objective Current Medications: Current Medications Sig/Nicole Start time Last Medication Dose Route Stop Time Status Admin Acetaminophen 650 MG Q6P PRN 11/22 0230 AC PO Bisacodyl 10 MG ONCE PRN 11/26 0800 AC 11/26 [place] 0921 Diclofenac Sodium 1 SANDRA Q6-PRN PRN 11/26 1730 AC TOP Diclofenac Sodium 1 SANDRA 4 TIMES/DAY 11/22 1530 DC 11/24 TOP 1052 Digoxin 0.125 MG 1700 11/26 1700 AC 11/26 PO 1726 Ezetimibe 10 MG DAILY 11/22 1000 AC 11/27 PO 0908 Gemfibrozil 600 MG BID 11/22 1000 AC 11/27 PO 0908 Levothyroxine Sodium 0.05 MG DAILY AC 11/22 0700 AC 11/27 PO 0734 Metoprolol Tartrate 25 MG BID 11/26 2200 AC 11/27 PO 0908 Metoprolol Tartrate 50 MG BID 11/22 0030 DC 11/26 PO 1042 Oxycodone/ 1 TAB Q6P PRN 11/22 0230 AC Acetaminophen PO Oxycodone/ 2 TAB Q6P PRN 11/22 0230 AC 11/26 Acetaminophen PO 2210 Oxymetazoline HCl 2 SPRAY BID PRN 11/27 1000 AC DAO Oxymetazoline HCl 2 SPRAY BID 11/23 1533 DC DAO 11/26 2200 Patient Medication 1 UNIT ONE NR 11/26 1915 DC 11/27 Teaching ED 11/26 1930 0905 Polyethylene Glycol 17 GM DAILY 11/24 2140 AC 11/27 PO 0905 Senna/Docusate Sodium 1 TAB DAILY 11/24 2140 AC 11/27 PO 0908 Tolvaptan 15 MG 2200 11/25 2200 AC 11/26 PO 2210 Vital Signs & I&O Last 24 Hrs of Vitals and I&O: Vital Signs Date Time Temp Pulse Resp B/P Pulse O2 O2 Flow FiO2 Ox Delivery Rate 11/27 0908 70 115/62 11/27 0400 95 Nasal 5.0L Cannula 11/27 0000 93 Nasal 5.0L Cannula 11/27 0000 97.0 74 20 90/60 93 Nasal 5.0L Cannula 11/26 2210 68 20 111/65 11/26 2000 96 Nasal 5.0L Cannula 11/26 1726 68 18 100/60 11/26 1600 96 Nasal 5.0L Cannula 11/26 1600 96.7 68 18 98/60 96 Nasal 5.0L Cannula 11/26 1200 95 Nasal 5.0L Cannula 11/26 1042 72 117/72 Intake & Output 11/27 1600 11/27 0800 11/27 0000 Intake Total 50 440 Output Total 375 Balance 50 65 Intake, Oral 50 440 Output, Urine 375 Exam Other Physical Findings: gen awake and alert heent distended neck veins cvs s1, s2, irregular lungs ctab abd soft bs+ ext 1+ edema Results Last 24 Hrs of Lab Results: Laboratory Tests 11/27/16 0500: Anion Gap 13, Estimated GFR 27 L, Glucose 75, Calcium 9.5, Phosphorus 5.5 H, Magnesium 2.6 H, Total Bilirubin 2.5 H, AST 34, ALT 26, Albumin 3.9, CBC w Diff NO MAN DIFF REQ, RBC 4.98, MCV 93.7, MCH 30.5, RDW 15.8 H, MPV 8.2, Gran % 70.0, Lymphocytes % 14.9 L, Monocytes % 11.5 H, Eosinophils % 3.0, Basophils % 0.6, Absolute Granulocytes 5.7, Absolute Lymphocytes 1.2, Absolute Monocytes 0.9 H, Absolute Eosinophils 0.2, Absolute Basophils 0, PUBS MCHC 32.5 L, Digoxin 1.4 Impression/Plan Impression/Plan Impression/Plan: Impression 76 year old woman - COPD - pulmonary hypertension in the setting of rheumatic heart disease and mitral valve replacement - no obvious ILD Plan -f/u cardiology plan -monitor bp, urine output and creatinine -f/u nephrology -agree with studies after optimization of current presentation including outpatient sleep study, HRCT -reduce fio2 as tolerated spo2 >88% -DVT prophylaxis at all times (ALPS) TTS 35 min Consider Tele DG if okay with cardiology Code Status: Full Code
--- NOTE | 2016-11-27 13:35 | PN- Nephrology ---
Assessment/Plan Assessment: Hyponatremia: This is a hypervolemic hyponatremia I suspect due to right-sided congestive heart failure, with a resultant high ADH state. Sodium level is improving with tolvaptan. Would continue daily tolvaptan 50 mg per day until sodium level increases greater than 129. RADHA: Likely from cardiorenal factors. She's and right-sided heart failure and anasarcic, however may be preload dependent given the severe pulmonary hypertension. May not be a coincidence that her creatinine bumped today after the dobutamine was stopped yesterday. Would not hydrate with IV fluids given anasarca, let us just continue to monitor and obtain a basic renal workup. Please order renal ultrasound, urinalysis and spot urine protein creatinine ratio. Suggestion: Continue tolvaptan Consider lowering digoxin as level is level up to 1.4 with rising creatinine Urinalysis and spot urine protein creatinine ratio Renal ultrasound Please add low potassium diet as K is 5.3 Discussed with ICU resident Subjective Subjective: No acute events Denies shortness of breath Sodium rising tolvaptan Creatinine bumped to 1.8 today Urine output about 700 mL and she is net positive Review of Systems: No fever or chills cough or sputum production Objective Vital Signs and I&Os Vital Signs Date Time Temp Pulse Resp B/P Pulse O2 O2 Flow FiO2 Ox Delivery Rate 11/27 1200 99 Nasal 5.0L Cannula 11/27 0908 70 115/62 11/27 0800 94 Nasal 5.0L Cannula 11/27 0800 97.1 67 24 108/66 94 Nasal 5.0L Cannula 11/27 0400 95 Nasal 5.0L Cannula 11/27 0000 93 Nasal 5.0L Cannula 11/27 0000 97.0 74 20 90/60 93 Nasal 5.0L Cannula 11/26 2210 68 20 111/65 11/26 2000 96 Nasal 5.0L Cannula 11/26 1726 68 18 100/60 11/26 1600 96 Nasal 5.0L Cannula 11/26 1600 96.7 68 18 98/60 96 Nasal 5.0L Cannula Intake & Output 11/27 1600 11/27 0400 11/26 1600 11/26 0400 11/25 040 Intake Total 50 440 740 986 168 1415 Output Total 375 325 80 375 250 Balance 50 65 415 087 714 7413 Intake, IV 292 561 4088 Intake, Oral 50 440 240 240 260 120 Number 1 0 0 Bowel Movements Output, Urine 375 325 80 375 250 Patient 202 lb 198 lb 196 lb Weight Physical Exam: General: NAD, A+O x3. HEENT: NC/AT. No icterus. Moist mucosa Neck: negative for YONY, JVD CV: RRR, no m/r/g Pulm: CTAB, no rales Abd: soft, distended Lower Ext: 1+ edema back +sacral edema Current Medications: Current Medications Sig/Nicole Start time Last Medication Dose Route Stop Time Status Admin Acetaminophen 650 MG Q6P PRN 11/22 0230 AC PO Bisacodyl 10 MG ONCE PRN 11/26 0800 AC 11/26 LA 0921 Diclofenac Sodium 1 SANDRA Q6-PRN PRN 11/26 1730 AC TOP Diclofenac Sodium 1 SANDRA 4 TIMES/DAY 11/22 1530 DC 11/24 TOP 1052 Digoxin 0.125 MG 1700 11/26 1700 AC 11/26 PO 1726 Ezetimibe 10 MG DAILY 11/22 1000 AC 11/27 PO 0908 Gemfibrozil 600 MG BID 11/22 1000 AC 11/27 PO 0908 Levothyroxine Sodium 0.05 MG DAILY AC 11/22 0700 AC 11/27 PO 0734 Metoprolol Tartrate 25 MG BID 11/26 2200 AC 11/27 PO 0908 Metoprolol Tartrate 50 MG BID 11/22 0030 DC 11/26 PO 1042 Oxycodone/ 1 TAB Q6P PRN 11/22 0230 AC Acetaminophen PO Oxycodone/ 2 TAB Q6P PRN 11/22 0230 AC 11/26 Acetaminophen PO 2210 Oxymetazoline HCl 2 SPRAY BID PRN 11/27 1000 AC DAO Oxymetazoline HCl 2 SPRAY BID 11/23 1533 DC DAO 11/26 2200 Patient Medication 1 UNIT ONE NR 11/26 1915 DC 11/27 Teaching ED 11/26 193 0905 Polyethylene Glycol 17 GM DAILY 11/24 2140 AC 11/27 PO 0905 Senna/Docusate Sodium 1 TAB DAILY 11/24 2140 AC 11/27 PO 0908 Tolvaptan 15 MG 2200 11/25 2200 AC 11/26 PO 2210 Results Pertinent Lab Results: Laboratory Tests 11/27 11/26 0500 0805 Chemistry Sodium (137 - 145 mmol/L) 126 L Potassium (3.5 - 5.1 mmol/L) 5.3 H Chloride (98 - 107 mmol/L) 89 L Carbon Dioxide (22 - 30 mmol/L) 24 Anion Gap (5 - 16) 13 BUN (7 - 17 mg/dL) 36 H Creatinine (0.5 - 1.0 mg/dL) 1.8 H Estimated GFR (>60 ml/min) 27 L Glucose (65 - 99 mg/dL) 75 Calcium (8.4 - 10.2 mg/dL) 9.5 Phosphorus (2.5 - 4.5 mg/dL) 5.5 H Magnesium (1.6 - 2.3 mg/dL) 2.6 H Total Bilirubin (0.2 - 1.3 mg/dL) 2.5 H AST (14 - 36 U/L) 34 ALT (9 - 52 U/L) 26 Albumin (3.5 - 5.0 g/dL) 3.9 Coagulation PT (9.4 - 12.5 SEC) 39.7 H INR (0.90 - 1.19) 3.83 H Hematology CBC w Diff NO MAN DIFF REQ WBC (4.8 - 10.8 /CUMM) 8.1 RBC (4.20 - 5.40 /CUMM) 4.98 Hgb (12.0 - 16.0 G/DL) 15.2 Hct (37 - 47 %) 46.7 MCV (81.0 - 99.0 FL) 93.7 MCH (27.0 - 31.0 PG) 30.5 RDW (11.5 - 14.5 %) 15.8 H Plt Count (130 - 400 /CUMM) 205 MPV (7.4 - 10.4 FL) 8.2 Gran % (42.2 - 75.2 %) 70.0 Lymphocytes % (20.5 - 51.1 %) 14.9 L Monocytes % (1.7 - 9.3 %) 11.5 H Eosinophils % (0 - 5 %) 3.0 Basophils % (0.0 - 2.0 %) 0.6 Absolute Granulocytes (1.4 - 6.5 /CUMM) 5.7 Absolute Lymphocytes (1.2 - 3.4 /CUMM) 1.2 Absolute Monocytes (0.10 - 0.60 /CUMM) 0.9 H Absolute Eosinophils (0.0 - 0.7 /CUMM) 0.2 Absolute Basophils (0.0 - 0.2 /CUMM) 0 PUBS MCHC (33.0 - 37.0 G/DL) 32.5 L Toxicology Digoxin (0.8 - 2.0 ng/mL) 1.4 11/26 11/25 11/25 0551 2330 2326 Chemistry Sodium (137 - 145 mmol/L) 124 L Cancelled 122 L Potassium (3.5 - 5.1 mmol/L) 5.5 H 5.3 H Chloride (98 - 107 mmol/L) 87 L 89 L Carbon Dioxide (22 - 30 mmol/L) 25 21 L Anion Gap (5 - 16) 12 12 BUN (7 - 17 mg/dL) 29 H 27 H Creatinine (0.5 - 1.0 mg/dL) 1.5 H 1.5 H Estimated GFR (>60 ml/min) 34 L 34 L Glucose (65 - 99 mg/dL) 70 85 Calcium (8.4 - 10.2 mg/dL) 9.0 9.2 Phosphorus (2.5 - 4.5 mg/dL) 5.4 H 5.1 H Magnesium (1.6 - 2.3 mg/dL) 2.3 2.3 Total Bilirubin (0.2 - 1.3 mg/dL) 2.3 H 2.1 H AST (14 - 36 U/L) 35 33 ALT (9 - 52 U/L) 25 20 Albumin (3.5 - 5.0 g/dL) 3.5 3.6 Hematology CBC w Diff NO MAN DIFF REQ WBC (4.8 - 10.8 /CUMM) 8.9 RBC (4.20 - 5.40 /CUMM) 4.26 Hgb (12.0 - 16.0 G/DL) 13.0 Hct (37 - 47 %) 40.0 MCV (81.0 - 99.0 FL) 94.1 MCH (27.0 - 31.0 PG) 30.5 RDW (11.5 - 14.5 %) 15.9 H Plt Count (130 - 400 /CUMM) 240 MPV (7.4 - 10.4 FL) 8.3 Gran % (42.2 - 75.2 %) 77.7 H Lymphocytes % (20.5 - 51.1 %) 10.4 L Monocytes % (1.7 - 9.3 %) 10.9 H Eosinophils % (0 - 5 %) 0.8 Basophils % (0.0 - 2.0 %) 0.2 Absolute Granulocytes (1.4 - 6.5 /CUMM) 6.9 H Absolute Lymphocytes (1.2 - 3.4 /CUMM) 0.9 L Absolute Monocytes (0.10 - 0.60 /CUMM) 1.0 H Absolute Eosinophils (0.0 - 0.7 /CUMM) 0.1 Absolute Basophils (0.0 - 0.2 /CUMM) 0 PUBS MCHC (33.0 - 37.0 G/DL) 32.5 L 11/25 11/25 11/25 11/25 1720 1045 0700 0500 Chemistry Sodium (137 - 145 mmol/L) 122 L 123 L 124 L Potassium (3.5 - 5.1 mmol/L) 4.9 4.7 5.1 Chloride (98 - 107 mmol/L) 87 L 88 L 86 L Carbon Dioxide (22 - 30 mmol/L) 24 27 28 Anion Gap (5 - 16) 11 8 10 BUN (7 - 17 mg/dL) 25 H 23 H 23 H Creatinine (0.5 - 1.0 mg/dL) 1.4 H 1.3 H 1.3 H Estimated GFR (>60 ml/min) 36 L 40 L 40 L Glucose (65 - 99 mg/dL) 80 87 83 Calcium (8.4 - 10.2 mg/dL) 8.7 8.3 L 8.9 Phosphorus (2.5 - 4.5 mg/dL) 4.7 H 4.6 H 4.8 H Magnesium (1.6 - 2.3 mg/dL) 2.0 2.0 2.2 Total Bilirubin (0.2 - 1.3 mg/dL) 1.8 H 1.7 H 2.1 H AST (14 - 36 U/L) 33 30 38 H ALT (9 - 52 U/L) 28 28 31 Albumin (3.5 - 5.0 g/dL) 3.3 L 3.1 L 3.8 Cortisol AM Sample Cancelled Coagulation PT (9.4 - 12.5 SEC) 75.6 *H Cancelled INR (0.90 - 1.19) 7.34 *H Cancelled Toxicology Digoxin (0.8 - 2.0 ng/mL) 0.8 11/25 11/25 0400 0300 Chemistry Sodium (137 - 145 mmol/L) 125 L Cancelled Potassium (3.5 - 5.1 mmol/L) 4.4 Cancelled Chloride (98 - 107 mmol/L) 92 L Cancelled Carbon Dioxide (22 - 30 mmol/L) 24 Cancelled Anion Gap (5 - 16) 9 Cancelled BUN (7 - 17 mg/dL) 20 H Cancelled Creatinine (0.5 - 1.0 mg/dL) 1.2 H Cancelled Estimated GFR (>60 ml/min) 43 L Glucose (65 - 99 mg/dL) 81 Cancelled Calcium (8.4 - 10.2 mg/dL) 7.6 L Cancelled Phosphorus (2.5 - 4.5 mg/dL) 4.1 Cancelled Magnesium (1.6 - 2.3 mg/dL) 1.9 Cancelled Total Bilirubin (0.2 - 1.3 mg/dL) 1.6 H Cancelled AST (14 - 36 U/L) 29 Cancelled ALT (9 - 52 U/L) 29 Cancelled Albumin (3.5 - 5.0 g/dL) 2.8 L Cancelled Cortisol AM Sample (4.46 - 22.7 ug/dL) 21.1 Coagulation PT (9.4 - 12.5 SEC) 97.8 *H INR (0.90 - 1.19) 9.52 *H Hematology CBC w Diff NO MAN DIFF REQ WBC (4.8 - 10.8 /CUMM) 8.1 RBC (4.20 - 5.40 /CUMM) 4.00 L Hgb (12.0 - 16.0 G/DL) 12.4 Hct (37 - 47 %) 37.3 MCV (81.0 - 99.0 FL) 93.3 MCH (27.0 - 31.0 PG) 31.1 H RDW (11.5 - 14.5 %) 16.0 H Plt Count (130 - 400 /CUMM) 199 MPV (7.4 - 10.4 FL) 7.9 Gran % (42.2 - 75.2 %) 82.7 H Lymphocytes % (20.5 - 51.1 %) 8.5 L Monocytes % (1.7 - 9.3 %) 7.7 Eosinophils % (0 - 5 %) 0.9 Basophils % (0.0 - 2.0 %) 0.2 Absolute Granulocytes (1.4 - 6.5 /CUMM) 6.7 H Absolute Lymphocytes (1.2 - 3.4 /CUMM) 0.7 L Absolute Monocytes (0.10 - 0.60 /CUMM) 0.6 Absolute Eosinophils (0.0 - 0.7 /CUMM) 0.1 Absolute Basophils (0.0 - 0.2 /CUMM) 0 PUBS MCHC (33.0 - 37.0 G/DL) 33.3 11/24 2345 Chemistry Sodium (137 - 145 mmol/L) 119 *L Potassium (3.5 - 5.1 mmol/L) 4.5 Chloride (98 - 107 mmol/L) 87 L Carbon Dioxide (22 - 30 mmol/L) 24 Anion Gap (5 - 16) 8 BUN (7 - 17 mg/dL) 21 H Creatinine (0.5 - 1.0 mg/dL) 1.2 H Estimated GFR (>60 ml/min) 43 L Glucose (65 - 99 mg/dL) 105 H Calcium (8.4 - 10.2 mg/dL) 8.2 L Phosphorus (2.5 - 4.5 mg/dL) 4.3 Magnesium (1.6 - 2.3 mg/dL) 2.0 Total Bilirubin (0.2 - 1.3 mg/dL) 1.8 H AST (14 - 36 U/L) 30 ALT (9 - 52 U/L) 26 Albumin (3.5 - 5.0 g/dL) 3.0 L Hematology CBC w Diff NO MAN DIFF REQ WBC (4.8 - 10.8 /CUMM) 8.6 RBC (4.20 - 5.40 /CUMM) 4.27 Hgb (12.0 - 16.0 G/DL) 13.1 Hct (37 - 47 %) 39.8 MCV (81.0 - 99.0 FL) 93.1 MCH (27.0 - 31.0 PG) 30.8 RDW (11.5 - 14.5 %) 16.0 H Plt Count (130 - 400 /CUMM) 210 MPV (7.4 - 10.4 FL) 8.0 Gran % (42.2 - 75.2 %) 82.8 H Lymphocytes % (20.5 - 51.1 %) 7.0 L Monocytes % (1.7 - 9.3 %) 8.6 Eosinophils % (0 - 5 %) 1.3 Basophils % (0.0 - 2.0 %) 0.3 Absolute Granulocytes (1.4 - 6.5 /CUMM) 7.1 H Absolute Lymphocytes (1.2 - 3.4 /CUMM) 0.6 L Absolute Monocytes (0.10 - 0.60 /CUMM) 0.7 H Absolute Eosinophils (0.0 - 0.7 /CUMM) 0.1 Absolute Basophils (0.0 - 0.2 /CUMM) 0 PUBS MCHC (33.0 - 37.0 G/DL) 33.0
[2016-11-27 16:00] VITALS: BP 132/84
--- NOTE | 2016-11-27 16:49 | ULTRASOUND REPORT ---
EXAMINATION: US RETROPERITONEAL COMPLETE (RENAL) CLINICAL INFORMATION: Elevated creatinine level. COMPARISON: None TECHNIQUE: Real-time imaging of the kidneys and bladder. Examination limited secondary to body habitus, overlapping bowel gas and limited mobility. FINDINGS: RIGHT KIDNEY: 10.2 x 4.6 x 4.1 cm (SAG x AP x TRV). The kidney is normal in size, contour, and echogenicity. Renal cortical thickness is normal. No calculi or focal parenchymal lesions. No hydronephrosis. LEFT KIDNEY: Imaging somewhat limited due to overlapping bowel gas, in particular of the lower pole. 8.0 x 5.1 x 4.1 cm (SAG x AP x TRV). The kidney is normal in size, contour, and echogenicity. Renal cortical thickness is normal. No calculi or focal parenchymal lesions. No hydronephrosis. BLADDER: Decompressed and presently incompletely evaluated with ultrasound. OTHER: There is moderate ascites, extending into the 4 quadrants. IMPRESSION: 1. Unremarkable renal ultrasound examination, limited as above. 2. There is moderate ascites.
[2016-11-27 22:00] VITALS: BP 122/80
[2016-11-28] VITALS: BP 102/60
--- NOTE | 2016-11-28 00:25 | NUR ---
PT AWAKE ALERT AND ORIENTED. SHE STATES THAT PERCOCET WORKED WELL. AFIB 70'S. MANUAL BP 102/60. SATURATION 93% ON 5L O2. LUNGS SOUND CLEAR. BLE EDEMATOUS, ++.
[2016-11-28 06:03] LABS: ABSOLUTE EOSINOPHIL COUNT 0.3 /CUMM (0.0-0.7); ABSOLUTE MONOCYTE COUNT 0.9 /CUMM (0.10-0.60); MEAN CORPUSCULAR VOLUME 93.8 FL (81.0-99.0)
[2016-11-28 06:04] LABS: PT 30.5 SEC (9.4-12.5)
[2016-11-28 06:07] LABS: ABSOLUTE BASOPHIL COUNT 0.1 /CUMM (0.0-0.2); ABSOLUTE GRANULOCYTE CT 6.9 /CUMM (1.4-6.5); ABSOLUTE LYMPH COUNT 1.1 /CUMM (1.2-3.4); BASOPHIL % 0.7 % (0.0-2.0); EOSINOPHIL % 3.5 % (0-5); GRANULOCYTE % 74.1 % (42.2-75.2); MEAN CORPUSCULAR HGB 30.5 PG (27.0-31.0); MEAN CORPUSCULAR HGB CONC 32.5 G/DL (33.0-37.0); MEAN PLATELET VOLUME 8.4 FL (7.4-10.4); PLATELET COUNT 227 /CUMM (130-400); RBC DISTRIBUTION WIDTH 16.3 % (11.5-14.5); WHITE BLOOD CELL COUNT 9.3 /CUMM (4.8-10.8)
[2016-11-28 06:11] LABS: HEMATOCRIT 41.2 % (37-47)
--- NOTE | 2016-11-28 07:19 | PN- Housestaff ---
Subjective Follow-up For: Right-sided heart failure RADHA Hyponatremia Supratherapeutic INR Subjective: No acute events overnight. Patient was seen and examined this morning. She feels well and has no complaints. She remains on 5 L NC without shortness of breath. Review of Systems Constitutional: Reports: no symptoms. Objective Last 24 Hrs of Vital Signs/I&O Vital Signs Date Time Temp Pulse Resp B/P Pulse O2 O2 Flow FiO2 Ox Delivery Rate 11/28 0924 96 120/72 11/28 0800 95 Nasal 5.0L Cannula 11/28 0800 97.5 78 24 120/72 96 Nasal 5.0L Cannula 11/28 0000 93 Nasal 5.0L Cannula 11/28 0000 97.1 74 20 102/60 93 Nasal 5.0L Cannula 11/27 2200 97.0 76 18 122/80 96 Nasal 5.0L Cannula 11/27 2141 97.0 76 18 122/80 11/27 2000 95 Nasal 5.0L Cannula 11/27 1653 71 132/84 11/27 1600 94 Nasal 5.0L Cannula 11/27 1600 97.2 79 22 132/84 94 Nasal 5.0L Cannula 11/27 1200 99 Nasal 5.0L Cannula Vital Signs Date Time Temp Pulse Resp B/P Pulse O2 O2 Flow FiO2 Ox Delivery Rate 11/28 0924 96 120/72 11/28 0800 95 Nasal 5.0L Cannula 11/28 0800 97.5 78 24 120/72 96 Nasal 5.0L Cannula 11/28 0000 93 Nasal 5.0L Cannula 11/28 0000 97.1 74 20 102/60 93 Nasal 5.0L Cannula 11/27 2200 97.0 76 18 122/80 96 Nasal 5.0L Cannula 11/27 2141 97.0 76 18 122/80 11/27 2000 95 Nasal 5.0L Cannula 11/27 1653 71 132/84 11/27 1600 94 Nasal 5.0L Cannula 11/27 1600 97.2 79 22 132/84 94 Nasal 5.0L Cannula 11/27 1200 99 Nasal 5.0L Cannula Intake & Output 11/28 1600 11/28 0800 11/28 0000 Intake Total 200 200 Output Total 700 560 Balance -500 -360 Intake, Oral 200 200 Number 1 Bowel Movements Output, Urine 700 560 Physical Exam General Appearance: Alert, Oriented X3, No Acute Distress HEENT: Mucous Membr. moist/pink Neck: JVD Cardiovascular: Irregularly Irregular Lungs: Diminished Bibasilar Breath Sounds, No Wheezes or Crackles Abdomen: Soft, Distended Extremities: Bilateral Lower Extremities with Ritchie Wrap and 1+ Edema Current Medications: Current Medications Sig/Nicole Start time Last Medication Dose Route Stop Time Status Admin Acetaminophen 650 MG Q6P PRN 11/22 0230 AC PO Bisacodyl 10 MG ONCE PRN 11/26 0800 AC 11/26 [place] 0921 Diclofenac Sodium 1 SANDRA Q6-PRN PRN 11/26 1730 AC TOP Digoxin 0.125 MG 1700 11/26 1700 AC 11/27 PO 1653 Ezetimibe 10 MG DAILY 11/22 1000 AC 11/28 PO 0922 Gemfibrozil 600 MG BID 11/22 1000 AC 11/28 PO 0923 Levothyroxine Sodium 0.05 MG DAILY AC 11/22 0700 AC 11/28 PO 0615 Metoprolol Tartrate 25 MG BID 11/26 2200 AC 11/28 PO 0924 Oxycodone/ 1 TAB Q6P PRN 11/22 0230 AC Acetaminophen PO Oxycodone/ 2 TAB Q6P PRN 11/22 0230 AC 11/27 Acetaminophen PO 2141 Oxymetazoline HCl 2 SPRAY BID PRN 11/27 1000 AC DAO Polyethylene Glycol 17 GM DAILY 11/24 2140 AC 11/28 PO 0922 Senna/Docusate Sodium 1 TAB DAILY 11/24 2140 AC 11/28 PO 0922 Tolvaptan 15 MG 11/25 2200 AC 11/27 PO 2142 Last 24 Hrs of Lab/Juan R Results Last 24 Hrs of Labs/Mics: Laboratory Tests 11/28/16 0544: Anion Gap 9, Estimated GFR 34 L, Glucose 74, Calcium 9.0, Phosphorus 4.7 H, Magnesium 2.4 H, Total Bilirubin 2.0 H, AST 30, ALT 27, Albumin 3.4 L, PT 30.5 H, INR 2.94 H, CBC w Diff NO MAN DIFF REQ, RBC 4.40, MCV 93.8, MCH 30.5, RDW 16.3 H, MPV 8.4, Gran % 74.1, Lymphocytes % 12.0 L, Monocytes % 9.7 H, Eosinophils % 3.5, Basophils % 0.7, Absolute Granulocytes 6.9 H, Absolute Lymphocytes 1.1 L, Absolute Monocytes 0.9 H, Absolute Eosinophils 0.3, Absolute Basophils 0.1, PUBS MCHC 32.5 L, Digoxin 1.3 11/27/16 1604: Ur Random Creatinine 31, U Random Total Protein 12.6 H, Protein/Creatinin Ratio 0.40 H 11/27/16 1604: Urine Color YEL, Urine Clarity CLDY H, Urine pH 6.0, Ur Specific [place] 1.010, Urine Protein TRACE H, Urine Ketones NEG, Urine Nitrite NEG, Urine Bilirubin NEG, Urine Urobilinogen 0.2, Ur Leukocyte Esterase LARGE H, Ur Microscopic SEDIMENT EXAMINED, Urine RBC >75 H, Urine WBC > 75 H, Ur Epithelial Cells MANY H, Urine Hemoglobin LARGE H, Urine Glucose NEG Orders Radiology Findings: Renal US: 1. Unremarkable renal ultrasound examination, limited as above. 2. There is moderate ascites. 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 #Right-sided heart failure: Unclear whether severe pulmonary HTN is primary or 2 /2 left heart disease in the setting of rheumatic valvular disease as recent left and right heart catheterization was inconclusive. Blood pressure remains stable off dobutamine drip. Digoxin level this morning therapeutic at 1.3 ( reference range: 0.8-2.0). * Cardiology following. Appreciate their recs. * Continue to monitor strict I/Os and daily weights. * Continue digoxin 0.125 mg PO daily. * Resume Lasix 40 mg IV daily tomorrow given significant amount of weight gain ( 26 lbs from baseline). Increase as tolerated. * Be cautious with diuresis as patient is very dependent on adequate preload given her RV failure. * Continue metoprolol 25 mg PO BID. * Keep off IV dobutamine drip. * Continue leg elevation and bilateral Ritchie wraps for compression. #RADHA: Creatinine has improved slightly to 1.5 today. Most likely etiology is cardiorenal syndrome in the setting of right-sided heart failure and hypotension 2/2 overdiuresis. Renal US unremarkable. Urinalysis and urine spot protein/ creatinine ratio was performed yesterday but results were not accurate, perhaps due to poor sample quality. * Nephrology following. Appreciate their recs. * Continue to monitor lytes and kidney function. * Monitor off IVF. * Resume Lasix tomorrow as above. * Avoid nephrotoxic agents including NSAIDs and IV contrast. * Avoid RITCHIE inhibitors and ARBs. * Re-check urinalysis and spot urine protein/creatinine ratio. #Hyponatremia: Improving on tolvaptan, Na 128 today. 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 * Continue 600 mL fluid restriction. * Continue tolvaptan 15 mg PO daily. * Administer Lasix in the morning and tolvaptan in the evening to space them out by at least 8 hours per nephrology recs. #Atrial fibrillation: Remains in atrial fibrillation with well-controlled heart rate. INR has improved to 2.94 today. * Continue metoprolol 25 mg PO BID for rate control * Hold warfarin today. * Continue to check INR and resume warfarin at 1 mg daily if INR drops to < 2. #Hypothyroidism: TSH and free T4 WNL. * Continue prior to admission levothyroxine 50 mcg daily. Diet: CHF Diet with 2 g K restriction - Avoid eggs given episode of choking. DVT PPx: Warfarin CODE: FULL Problem List: 1. Right heart failure 2. Acute hypoxemic respiratory failure 3. Supratherapeutic INR 4. RADHA (acute kidney injury) 5. Hyponatremia 6. Moderate to severe pulmonary hypertension 7. Pulmonary nodule 8. Hypothyroidism 9. (HFpEF) heart failure with preserved ejection fraction 10. Congestive heart failure 11. Atrial fibrillation Pain Ratin Pain Location: N/A Pain Goal: Remain pain free Pain Plan: Tylenol 650 mg PO Q6H PRN for mild pain (scale 1-3) Percocet 1 tab PO Q6H PRN for moderate pain (scale 4-6) Percocet 2 tabs PO Q6H PRN for severe pain (scale 7-10) Tomorrow's Labs & Rationales: BMP to monitor kidney function and lytes in the setting of RADHA and hyponatremia
[2016-11-28 08:00] VITALS: BP 120/72
--- NOTE | 2016-11-28 08:13 | PN- Pulmonary ---
Subjective HPI/Critical Care Issues: Patient feels well without shortness of breath she continues to diurese hyponatremia is improved Objective Current Medications: Current Medications Sig/Nicole Start time Last Medication Dose Route Stop Time Status Admin Acetaminophen 650 MG Q6P PRN 11/22 0230 AC PO Bisacodyl 10 MG ONCE PRN 11/26 0800 AC 11/26 [place] 0921 Diclofenac Sodium 1 SANDRA Q6-PRN PRN 11/26 1730 AC TOP Digoxin 0.125 MG 1700 11/26 1700 AC 11/27 PO 1653 Ezetimibe 10 MG DAILY 11/22 1000 AC 11/27 PO 0908 Gemfibrozil 600 MG BID 11/22 1000 AC 11/27 PO 2134 Levothyroxine Sodium 0.05 MG DAILY AC 11/22 0700 AC 11/28 PO 0615 Metoprolol Tartrate 25 MG BID 11/26 2200 AC 11/27 PO 2141 Oxycodone/ 1 TAB Q6P PRN 11/22 0230 AC Acetaminophen PO Oxycodone/ 2 TAB Q6P PRN 11/22 0230 AC 11/27 Acetaminophen PO 2141 Oxymetazoline HCl 2 SPRAY BID PRN 11/27 1000 AC DAO Polyethylene Glycol 17 GM DAILY 11/24 2140 AC 11/27 PO 0905 Senna/Docusate Sodium 1 TAB DAILY 11/24 2140 AC 11/27 PO 0908 Tolvaptan 15 MG 11/25 220 AC 11/27 PO 2142 Vital Signs & I&O Last 24 Hrs of Vitals and I&O: Vital Signs Date Time Temp Pulse Resp B/P Pulse O2 O2 Flow FiO2 Ox Delivery Rate 11/28 0000 93 Nasal 5.0L Cannula 11/28 0000 97.1 74 20 102/60 93 Nasal 5.0L Cannula 11/270 97.0 76 18 122/80 96 Nasal 5.0L Cannula 11/27 2140 97.0 76 18 122/80 11/27 2000 95 Nasal 5.0L Cannula 11/27 1653 71 132/84 11/27 1600 94 Nasal 5.0L Cannula 11/27 1600 97.2 79 22 132/84 94 Nasal 5.0L Cannula 11/27 1200 99 Nasal 5.0L Cannula 11/27 0908 70 115/62 Intake & Output 11/28 1600 11/28 0800 11/28 0000 Intake Total 200 200 Output Total 700 560 Balance -500 -360 Intake, Oral 200 200 Number 1 Bowel Movements Output, Urine 700 560 Oxygen saturation 5 L 9396% exam for chest shows somewhat diminished breath sounds there are no wheezes or crackles cardiac exam shows regular S1 and S2 there is trace to 1+ edema Impression/Plan Impression/Plan Impression/Plan: 76-year-old with COPD and pulmonary hypertension in the setting of rheumatic heart disease and mitral valve replacement. Multiple CT scans do not show evidence of interstitial lung disease. Unfortunately her catheterization was not able to determine whether her pulmonary hypertension was cardiac in origin, she appears to have significant right heart failure, she does have a pulmonary nodule which will require follow-up. Respiratory status is slowly improving and can taper FiO2 his saturations allow. Patient can be seen as an outpatient to complete her exam inclusive of sleep study high-resolution CT chest Recommendations: High-resolution CT scan of the chest once acute problems have stabilized. Outpatient sleep study to exclude obstructive sleep apnea. Patient appears to be approaching dry weight. Taper FiO2 his saturations allow.
--- NOTE | 2016-11-28 09:08 | PN- Cardiology ---
Subjective Subjective: * breathing is improved * atrial fibrillation with improved heart rate * sodium is improving * INR is now in the therapeutic range * Digoxin level is in the therapeutic range Objective Vital Signs and I&Os Vital Signs Date Time Temp Pulse Resp B/P Pulse O2 O2 Flow FiO2 Ox Delivery Rate 11/28 0000 93 Nasal 5.0L Cannula 11/28 0000 97.1 74 20 102/60 93 Nasal 5.0L Cannula 11/27 2200 97.0 76 18 122/80 96 Nasal 5.0L Cannula 11/27 2141 97.0 76 18 122/80 11/27 2000 95 Nasal 5.0L Cannula 11/27 1653 71 132/84 11/27 1600 94 Nasal 5.0L Cannula 11/27 1600 97.2 79 22 132/84 94 Nasal 5.0L Cannula 11/27 1200 99 Nasal 5.0L Cannula 11/27 0908 70 115/62 Intake & Output 11/28 1600 11/28 0800 11/28 0000 11/27 1600 11/27 0800 11/27 0000 Intake Total 200 200 240 50 440 Output Total 700 560 550 375 Balance -500 -360 -310 50 65 Intake, Oral 200 200 240 50 440 Number 1 1 Bowel Movements Output, Urine 700 560 550 375 Patient 202 lb Weight Physical Exam: General: WD/ WN female in NAD; alert and oriented x 3 Neck: positive JVD Heart: irregularly irregular Lungs: clear bilaterally Extremities: 1+ lower extremity edema bilaterally Assessment/Plan Assessment/Plan * This patient will be very dependent on adequate preload due to her RV failure and elevated RV pressures. We will diurese as tolerated by blood pressure. Will hold diuretics for today. * Continue digoxin at 0.125mg daily. It is understood that the Tolvaptan will raise the serum level of this drug which we are giving to improve RV contractility. * Hold coumadin for today and begin at 1mg daily tomorrow if INR drops below 2.0. This patient will need 5mg of Vitamin K today. Goal INR is 2.0. * Follow electrolytes * Please follow renal and pulmonary recommendations. * check TSH and free T4 Continue telemetry? Yes
--- NOTE | 2016-11-28 12:34 | PN- Nephrology ---
Assessment/Plan Assessment: RADHA - presumably 2/2 cardiorenal syndrome and relative hypotension with attempted diuresis (perhaps leading to some ischemic ATN). Her labs from earlier in the admission suggest that she may have been at a more optimal standpoint in terms of her RV pre-load when she started to get aggressively diuresed and her blood pressure significant dropped - hence why her Na went down and creatinine went up. Now she has gained a significant amount of weight and with a stable creatinine and Na, I think that it's worth reintroducing diuretics. Given her poor RV function and severe pulm HTN, this may need to be done with the assistance of dobutamine. Hyponatremia - Improving with tolvaptan. However, weight continues to rise without loop diuretics. I think that we can continue tolvaptan but may also need to add back loop diuretics. Suggestion: -Would continue tolvaptan 15mg daily -Would restart lasix at 40mg IV daily (can increase as tolerated) - please space this and tolvaptan out by at least 8 hours -Would consider restarting dobutamine once lasix is restarted -Would recheck UA with microscopic analysis -Cont daily weights and accurate I's/O's Subjective Subjective: Pt feeling OK Last lasix on 11/22 Dobutamine stopped on 11/24 Weight is up 26lbs from baseline Objective Vital Signs and I&Os Vital Signs Date Time Temp Pulse Resp B/P Pulse O2 O2 Flow FiO2 Ox Delivery Rate 11/28 0924 96 120/72 11/28 0800 95 Nasal 5.0L Cannula 11/28 0800 97.5 78 24 120/72 96 Nasal 5.0L Cannula 11/28 0000 93 Nasal 5.0L Cannula 11/28 0000 97.1 74 20 102/60 93 Nasal 5.0L Cannula 11/27 2200 97.0 76 18 122/80 96 Nasal 5.0L Cannula 11/27 2141 97.0 76 18 122/80 11/27 2000 95 Nasal 5.0L Cannula 11/27 1653 71 132/84 11/27 1600 94 Nasal 5.0L Cannula 11/27 1600 97.2 79 22 132/84 94 Nasal 5.0L Cannula Intake & Output 11/28 1600 11/28 0400 11/27 1600 11/27 0400 11/26 040 Intake Total 200 200 290 440 740 240 Output Total 700 560 550 375 325 80 Balance -500 -360 -260 65 415 160 Intake, IV 500 Intake, Oral 200 200 290 440 240 240 Number 1 1 1 0 Bowel Movements Output, Urine 700 560 550 375 325 80 Patient 202 lb 198 lb 196 lb Weight Physical Exam: Gen - OK appearing HEENT - JVP up CV - RRR Chest - decreased breath sounds at bases with some bibasilar crackles Abd - distended Ext - 2+ edema Neuro - AOX3 Current Medications: Current Medications Sig/Nicole Start time Last Medication Dose Route Stop Time Status Admin Acetaminophen 650 MG Q6P PRN 11/22 0230 AC PO Bisacodyl 10 MG ONCE PRN 11/26 0800 AC 11/26 [place] 0921 Diclofenac Sodium 1 SANDRA Q6-PRN PRN 11/26 1730 AC TOP Digoxin 0.125 [place] 17011/26 1700 AC 11/27 PO 1653 Ezetimibe 10 MG DAILY 11/22 1000 AC 11/28 PO 0922 Gemfibrozil 600 MG BID 11/22 1000 AC 11/28 PO 0923 Levothyroxine Sodium 0.05 MG DAILY AC 11/22 0700 AC 11/28 PO 0615 Metoprolol Tartrate 25 MG BID 11/26 2200 AC 11/28 PO 0924 Oxycodone/ 1 TAB Q6P PRN 11/22 0230 AC Acetaminophen PO Oxycodone/ 2 TAB Q6P PRN 11/22 0230 AC 11/27 Acetaminophen PO 2141 Oxymetazoline HCl 2 SPRAY BID PRN 11/27 1000 AC DAO Polyethylene Glycol 17 GM DAILY 11/24 214 AC 11/28 PO 0922 Senna/Docusate Sodium 1 TAB DAILY 11/24 2140 AC 11/28 PO 0922 Tolvaptan 15 MG 11/25 220 AC 11/27 PO 2142 Results Pertinent Lab Results: Laboratory Tests 11/28 11/27 0544 1604 Chemistry Sodium (137 - 145 mmol/L) 128 L Potassium (3.5 - 5.1 mmol/L) 5.0 Chloride (98 - 107 mmol/L) 91 L Carbon Dioxide (22 - 30 mmol/L) 29 Anion Gap (5 - 16) 9 BUN (7 - 17 mg/dL) 41 H Creatinine (0.5 - 1.0 mg/dL) 1.5 H Estimated GFR (>60 ml/min) 34 L Glucose (65 - 99 mg/dL) 74 Calcium (8.4 - 10.2 mg/dL) 9.0 Phosphorus (2.5 - 4.5 mg/dL) 4.7 H Magnesium (1.6 - 2.3 mg/dL) 2.4 H Total Bilirubin (0.2 - 1.3 mg/dL) 2.0 H AST (14 - 36 U/L) 30 ALT (9 - 52 U/L) 27 Albumin (3.5 - 5.0 g/dL) 3.4 L TSH (0.270 - 4.200 uIU/mL) Pending Free T4 (0.78 - 2.44 ng/dL) Pending Coagulation PT (9.4 - 12.5 SEC) 30.5 H INR (0.90 - 1.19) 2.94 H Hematology CBC w Diff NO MAN DIFF REQ WBC (4.8 - 10.8 /CUMM) 9.3 RBC (4.20 - 5.40 /CUMM) 4.40 Hgb (12.0 - 16.0 G/DL) 13.4 Hct (37 - 47 %) 41.2 MCV (81.0 - 99.0 FL) 93.8 MCH (27.0 - 31.0 PG) 30.5 RDW (11.5 - 14.5 %) 16.3 H Plt Count (130 - 400 /CUMM) 227 MPV (7.4 - 10.4 FL) 8.4 Gran % (42.2 - 75.2 %) 74.1 Lymphocytes % (20.5 - 51.1 %) 12.0 L Monocytes % (1.7 - 9.3 %) 9.7 H Eosinophils % (0 - 5 %) 3.5 Basophils % (0.0 - 2.0 %) 0.7 Absolute Granulocytes (1.4 - 6.5 /CUMM) 6.9 H Absolute Lymphocytes (1.2 - 3.4 /CUMM) 1.1 L Absolute Monocytes (0.10 - 0.60 /CUMM) 0.9 H Absolute Eosinophils (0.0 - 0.7 /CUMM) 0.3 Absolute Basophils (0.0 - 0.2 /CUMM) 0.1 PUBS MCHC (33.0 - 37.0 G/DL) 32.5 L Toxicology Digoxin (0.8 - 2.0 ng/mL) 1.3 Urines Ur Random Creatinine (mg/dL) 31 U Random Total Protein (0 - 12 mg/dL) 12.6 H Protein/Creatinin Ratio (< 0.2) 0.40 H 11/27 11/27 1604 1351 Urines Urine Color (YEL,AMB,STR) YEL Urine Clarity (CLEAR) CLDY H Urine pH (5.0 - 8.0) 6.0 Ur Specific Ama (1.001 - 1.035) 1.010 Urine Protein (NEG,<30 MG/DL) TRACE H Urine Ketones (NEG) NEG Urine Nitrite (NEG) NEG Urine Bilirubin (NEG) NEG Urine Urobilinogen (0.1 - 1.0 EU/dl) 0.2 Ur Leukocyte Esterase (NEG) LARGE H Ur Microscopic SEDIMENT EXAMINED Urine RBC (0 - 5 /HPF) >75 H Urine WBC (0 - 2 /HPF) > 75 H Ur Epithelial Cells (NONE,FEW) MANY H Urine Hemoglobin (NEG) LARGE H Ur Random Creatinine Cancelled U Random Total Protein Cancelled Urine Glucose (N MG/DL) NEG 11/27 11/26 0500 0805 Chemistry Sodium (137 - 145 mmol/L) 126 L Potassium (3.5 - 5.1 mmol/L) 5.3 H Chloride (98 - 107 mmol/L) 89 L Carbon Dioxide (22 - 30 mmol/L) 24 Anion Gap (5 - 16) 13 BUN (7 - 17 mg/dL) 36 H Creatinine (0.5 - 1.0 mg/dL) 1.8 H Estimated GFR (>60 ml/min) 27 L Glucose (65 - 99 mg/dL) 75 Calcium (8.4 - 10.2 mg/dL) 9.5 Phosphorus (2.5 - 4.5 mg/dL) 5.5 H Magnesium (1.6 - 2.3 mg/dL) 2.6 H Total Bilirubin (0.2 - 1.3 mg/dL) 2.5 H AST (14 - 36 U/L) 34 ALT (9 - 52 U/L) 26 Albumin (3.5 - 5.0 g/dL) 3.9 Coagulation PT (9.4 - 12.5 SEC) 39.7 H INR (0.90 - 1.19) 3.83 H Hematology CBC w Diff NO MAN DIFF REQ WBC (4.8 - 10.8 /CUMM) 8.1 RBC (4.20 - 5.40 /CUMM) 4.98 Hgb (12.0 - 16.0 G/DL) 15.2 Hct (37 - 47 %) 46.7 MCV (81.0 - 99.0 FL) 93.7 MCH (27.0 - 31.0 PG) 30.5 RDW (11.5 - 14.5 %) 15.8 H Plt Count (130 - 400 /CUMM) 205 MPV (7.4 - 10.4 FL) 8.2 Gran % (42.2 - 75.2 %) 70.0 Lymphocytes % (20.5 - 51.1 %) 14.9 L Monocytes % (1.7 - 9.3 %) 11.5 H Eosinophils % (0 - 5 %) 3.0 Basophils % (0.0 - 2.0 %) 0.6 Absolute Granulocytes (1.4 - 6.5 /CUMM) 5.7 Absolute Lymphocytes (1.2 - 3.4 /CUMM) 1.2 Absolute Monocytes (0.10 - 0.60 /CUMM) 0.9 H Absolute Eosinophils (0.0 - 0.7 /CUMM) 0.2 Absolute Basophils (0.0 - 0.2 /CUMM) 0 PUBS MCHC (33.0 - 37.0 G/DL) 32.5 L Toxicology Digoxin (0.8 - 2.0 ng/mL) 1.4 11/26 11/25 11/25 0551 2330 2326 Chemistry Sodium (137 - 145 mmol/L) 124 L Cancelled 122 L Potassium (3.5 - 5.1 mmol/L) 5.5 H 5.3 H Chloride (98 - 107 mmol/L) 87 L 89 L Carbon Dioxide (22 - 30 mmol/L) 25 21 L Anion Gap (5 - 16) 12 12 BUN (7 - 17 mg/dL) 29 H 27 H Creatinine (0.5 - 1.0 mg/dL) 1.5 H 1.5 H Estimated GFR (>60 ml/min) 34 L 34 L Glucose (65 - 99 mg/dL) 70 85 Calcium (8.4 - 10.2 mg/dL) 9.0 9.2 Phosphorus (2.5 - 4.5 mg/dL) 5.4 H 5.1 H Magnesium (1.6 - 2.3 mg/dL) 2.3 2.3 Total Bilirubin (0.2 - 1.3 mg/dL) 2.3 H 2.1 H AST (14 - 36 U/L) 35 33 ALT (9 - 52 U/L) 25 20 Albumin (3.5 - 5.0 g/dL) 3.5 3.6 Hematology CBC w Diff NO MAN DIFF REQ WBC (4.8 - 10.8 /CUMM) 8.9 RBC (4.20 - 5.40 /CUMM) 4.26 Hgb (12.0 - 16.0 G/DL) 13.0 Hct (37 - 47 %) 40.0 MCV (81.0 - 99.0 FL) 94.1 MCH (27.0 - 31.0 PG) 30.5 RDW (11.5 - 14.5 %) 15.9 H Plt Count (130 - 400 /CUMM) 240 MPV (7.4 - 10.4 FL) 8.3 Gran % (42.2 - 75.2 %) 77.7 H Lymphocytes % (20.5 - 51.1 %) 10.4 L Monocytes % (1.7 - 9.3 %) 10.9 H Eosinophils % (0 - 5 %) 0.8 Basophils % (0.0 - 2.0 %) 0.2 Absolute Granulocytes (1.4 - 6.5 /CUMM) 6.9 H Absolute Lymphocytes (1.2 - 3.4 /CUMM) 0.9 L Absolute Monocytes (0.10 - 0.60 /CUMM) 1.0 H Absolute Eosinophils (0.0 - 0.7 /CUMM) 0.1 Absolute Basophils (0.0 - 0.2 /CUMM) 0 PUBS MCHC (33.0 - 37.0 G/DL) 32.5 L 11/25 1720 Chemistry Sodium (137 - 145 mmol/L) 122 L Potassium (3.5 - 5.1 mmol/L) 4.9 Chloride (98 - 107 mmol/L) 87 L Carbon Dioxide (22 - 30 mmol/L) 24 Anion Gap (5 - 16) 11 BUN (7 - 17 mg/dL) 25 H Creatinine (0.5 - 1.0 mg/dL) 1.4 H Estimated GFR (>60 ml/min) 36 L Glucose (65 - 99 mg/dL) 80 Calcium (8.4 - 10.2 mg/dL) 8.7 Phosphorus (2.5 - 4.5 mg/dL) 4.7 H Magnesium (1.6 - 2.3 mg/dL) 2.0 Total Bilirubin (0.2 - 1.3 mg/dL) 1.8 H AST (14 - 36 U/L) 33 ALT (9 - 52 U/L) 28 Albumin (3.5 - 5.0 g/dL) 3.3 L Imaging/Other Studies: US - US-RENAL/KIDNEY EXAMINATION: US RETROPERITONEAL COMPLETE (RENAL) CLINICAL INFORMATION: Elevated creatinine level. COMPARISON: None TECHNIQUE: Real-time imaging of the kidneys and bladder. Examination limited secondary to body habitus, overlapping bowel gas and limited mobility. FINDINGS: RIGHT KIDNEY: 10.2 x 4.6 x 4.1 cm (SAG x AP x TRV). The kidney is normal in size, contour, and echogenicity. Renal cortical thickness is normal. No calculi or focal parenchymal lesions. No hydronephrosis. LEFT KIDNEY: Imaging somewhat limited due to overlapping bowel gas, in particular of the lower pole. 8.0 x 5.1 x 4.1 cm (SAG x AP x TRV). The kidney is normal in size, contour, and echogenicity. Renal cortical thickness is normal. No calculi or focal parenchymal lesions. No hydronephrosis. BLADDER: Decompressed and presently incompletely evaluated with ultrasound. OTHER: There is moderate ascites, extending into the 4 quadrants. IMPRESSION: 1. Unremarkable renal ultrasound examination, limited as above. 2. There is moderate ascites.
--- NOTE | 2016-11-28 13:50 | Transfer of Care Summary ---
Hospital Course Course Hospital Course: Ms. 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 Portillo's office for worsening leg swelling, shortness of breath and 15 lbs weight gain over the past two weeks. Of note, patient was recently admitted to [facility] for decompensated heart failure where she was diuresed. On discharge her diltiazem had been stopped due to bradycardia and valsartan had been stopped due to RADHA. Patient had recently undergone right and left heart catheterization to see if pulmonary HTN is primary or cardiac in origin, which was inconclusive due to technical difficulties, but showed an EF of 55%. On initial presentation to the ED, vitals were remarkable for a high oxygen requirement of 5 L NC. Patient had significant positive JVD, ascites and bilateral lower extremity edema on exam. Labs were remarkable for Na 130, proBNP 5770 and total bilirubin 2.7. CXR showed cardiomegaly with no evidence of pulmonary edema. Patient was admitted to the ICU for acute hypoxemic respiratory failure. Below are the issues that were addressed during current admission: Assessment/Plan: #Right-sided heart failure: Patient was felt to have significant volume overload and was diuresed with IV Lasix. She was started on IV dobutamine drip to improve RV contractility while being aggressively diuresed. She maintained a negative fluid balance with improvement of her shortness of breath. Plan was to discontinue the dobutamine drip and transition her to digoxin on day 3 of admission but she became hypotensive upon stopping the drip which was subsequently re-started. Lasix was discontinued as it was felt that patient was overdiuresed, and continued to be held given the rise in her creatinine. It was thought that by overlapping digoxin and the dobutamine drip, the acute drop in blood pressure could be prevented. Thus a dose of digoxin was administered in the evening prior to stopping the dobutamine drip the following day and this time blood pressures were successfully maintained. Digoxin dose was later reduced in half to 0.125 mg PO daily as tolvaptan, which patient was started on hyponatremia, is known to increase digoxin levels. In terms of the etiology of the right-sided heart failure, it is unclear whether it is secondary to interstitial lung disease or left-heart disease in the setting of rheumatic valvular heart disease. * Cardiology following. Appreciate their recs. * Continue to monitor strict I/Os and daily weights. * Continue digoxin 0.125 mg PO daily. * Resume Lasix 40 mg IV daily given significant amount of weight gain. Increase dose as tolerated. * Be cautious with diuresis as patient is very dependent on adequate preload given her RV failure. * Continue metoprolol 25 mg PO BID. * Keep off IV dobutamine drip. * Continue leg elevation and bilateral Ritchie wraps for compression. * Per pulmonology, patient could benefit from outpatient sleep study to rule out obstructive sleep apnea. #RADHA: Creatinine was 0.8 on admission, but gradually trended up to a maximum of 1.8. Most likely etiology is cardiorenal syndrome in the setting of right-sided heart failure and hypotension 2/2 overdiuresis. Renal US was unremarkable. Urinalysis and urine spot protein/creatinine ratio was performed but results were not accurate, perhaps due to poor sample quality. * Nephrology following. Appreciate their recs. * Continue to monitor lytes and kidney function. * Monitor off IVF. * Resume Lasix with close monitoring of kidney function. * Avoid nephrotoxic agents including NSAIDs and IV contrast. * Avoid RITCHIE inhibitors and ARBs. * Re-check urinalysis and spot urine protein/creatinine ratio. #Hyponatremia: Sodium was 130 on admission, but later decreased to a minimum of 119. Nephrology was consulted who felt that this is most likely hypervolemic hyponatremia secondary right-sided heart failure resulting in a high ADH state. Patient was placed on fluid restriction and started on tolvaptan with improvement of Na. * Continue 600 mL fluid restriction. * Continue tolvaptan 15 mg PO daily until Na > 129. * Administer Lasix in the morning and tolvaptan in the evening to space them out by at least 8 hours. #Supratherapeutic INR: Patient was taking warfarin 5 mg PO daily with an INR goal of 2.5-3.5 in the setting of her mechanical mitral valve. INR was 3.16 on day 3 of admission and 4 mg of warfarin was given which caused the INR to become severely elevated to 9.52 two days later. Patient had no evidence of bleeding or bruising. Warfarin was held and 5 mg of vitamin K was administered. INR has been gradually trending down. * Continue to hold warfarin. * Continue to check INR and resume warfarin at 1 mg daily if INR drops to < 2. #Atrial fibrillation: Patient remained in atrial fibrillation with well- controlled heart rate throughout this admission. * Continue metoprolol 25 mg PO BID for rate control. * Continue warfarin therapy as above. #Suspected ILD: Patient was seen by pulmonology who felt that multiple CT scans had shown no evidence of ILD. * Follow up with pulmonology as outpatient. * Consider high-resolution CT Chest after stabilization of acute problems. #Pulmonary nodule: Previous CT scan of the Chest had shown 2.3 cm opacity in the left lung as well as bulky mediastinal adenopathy. * Follow-up with repeat CT scan as outpatient. #Possible PAD: Patient had episodes of painful leg cramps throughout this admission. Arterial doppler US of BLE was performed to evaluate for PAD which was suggestive of possible inflow disease. * Consider further work-up as outpatient. #Hypothyroidism: TSH and free T4 were checked and found to be within normal limits. * Continue prior to admission levothyroxine 50 mcg daily. Diet: CHF Diet with 2 g K restriction - Avoid eggs given episode of choking. DVT PPx: Warfarin CODE: FULL
[2016-11-28 16:43] VITALS: BP 110/70
[2016-11-28 23:25] VITALS: BP 136/86
--- NOTE | 2016-11-29 06:58 | PN- Housestaff ---
Subjective Follow-up For: Right-sided heart failure RADHA Hyponatremia Supratherapeutic INR Tele-Events Since Last Visit: Atrial fibrillation with HR 74-84 bpm, PVCs. Subjective: Patient seen and examined at bedside this AM. She reports she is feeling better and closer to her baseline. She continues on oxygen via nasal cannula without discomfort. She denies chest pain or palpitations. Review of Systems Constitutional: Denies: chills, fever. EENTM: Denies: visual changes. Cardiovascular: Denies: chest pain, palpitations. Respiratory: Denies: cough. Gastrointestinal: Denies: abdominal pain. Genitourinary: Denies: dysuria. Skin: Denies: rash. Objective Last 24 Hrs of Vital Signs/I&O Vital Signs Date Time Temp Pulse Resp B/P Pulse O2 O2 Flow FiO2 Ox Delivery Rate 11/29 0913 70 108/70 11/29 0902 96.9 70 20 108/70 97 Nasal 5.0L Cannula 11/29 0800 Nasal 5.0L Cannula 11/29 0000 94 Nasal 5.0L Cannula 11/28 2325 97.6 116 22 136/86 93 Nasal 5.0L Cannula 11/28 2233 128 136/86 11/28 1655 80 116/64 11/28 1643 97.8 74 17 110/70 97 Nasal 5.0L Cannula 11/28 1600 Nasal 5.0L Cannula Intake & Output 11/29 1600 11/29 0800 11/29 0000 Intake Total 120 40 Output Total 300 300 Balance -180 -260 Intake, Oral 120 40 Output, Urine 300 300 Patient 190 lb Weight Physical Exam General Appearance: Alert, Oriented X3, Cooperative, No Acute Distress Skin: No Rashes, No Significant Lesion HEENT: Atraumatic, Mucous Membr. moist/pink Neck: +JVD Cardiovascular: Irregularly irregular Lungs: Diminished bibasilar breath sounds without overt wheezing/crackles Abdomen: Normal Bowel Sounds, Soft Neurological: Normal Speech, Normal Tone Extremities: Bilateral lower extremities in chin bandages to below the knee. Current Medications: Current Medications Sig/Nicole Start time Last Medication Dose Route Stop Time Status Admin Acetaminophen 650 MG Q6P PRN 11/22 0230 AC PO Bisacodyl 10 MG ONCE PRN 11/26 0800 AC 11/26 MD 0921 Diclofenac Sodium 1 SANDRA Q6-PRN PRN 11/26 1730 AC TOP Digoxin 0.125 MG 1700 11/26 1700 AC 11/28 PO 1655 Ezetimibe 10 MG DAILY 11/22 1000 AC 11/29 PO 0913 Furosemide 40 MG DAILY 11/29 1000 DC IV Furosemide 40 MG 0800 11/29 0800 AC 11/29 IV 0912 Gemfibrozil 600 MG BID 11/22 1000 AC 11/29 PO 0912 Levothyroxine Sodium 0.05 MG DAILY AC 11/22 0700 AC 11/29 PO 0655 Metoprolol Tartrate 25 MG BID 11/26 2200 AC 11/29 PO 0913 Oxycodone/ 1 TAB Q6P PRN 11/22 0230 AC Acetaminophen PO Oxycodone/ 2 TAB Q6P PRN 11/22 0230 AC 11/28 Acetaminophen PO 2227 Oxymetazoline HCl 2 SPRAY BID PRN 11/27 1000 AC DAO Polyethylene Glycol 17 GM DAILY 11/24 2140 AC 11/29 PO 0911 Senna/Docusate Sodium 1 TAB DAILY 11/24 2140 AC 11/29 PO 0913 Tolvaptan 15 MG 1800 11/28 1800 DC 11/28 PO 1655 Last 24 Hrs of Lab/Juan R Results Last 24 Hrs of Labs/Mics: Laboratory Tests 11/29/16 0645: Anion Gap 7, Estimated GFR 31 L, BUN/Creatinine Ratio 23.8, PT 27.6 H, INR 2.65 H, Digoxin 1.5 11/28/161706: Ur Random Creatinine 30.8, U Random Total Protein 5.9, Protein/Creatinin Ratio 0.10 11/28/161706: Urine Color STRAW, Urine Clarity CLEAR, Urine pH 6.0, Ur Specific [place] 1.010, Urine Protein NEG, Urine Ketones NEG, Urine Nitrite NEG, Urine Bilirubin NEG, Urine Urobilinogen 0.2, Ur Leukocyte Esterase LARGE H, Ur Microscopic SEDIMENT EXAMINED, Urine RBC 10-15 H, Urine WBC 15-25 H, Ur Epithelial Cells RARE, Urine Bacteria FEW H, Urine Hemoglobin LARGE H, Urine Glucose NEG Orders Radiology Findings: CXR: IMPRESSION: Cardiomegaly. No evidence of cardiac failure. Miscellaneous Findings: Abdominal US: FINDINGS/IMPRESSION: Ascites is visualized in the right upper quadrant. LE doppler: IMPRESSION: Normal velocity measurements in the lower extremities. Biphasic and monophasic phasic waveform suggests possible inflow disease, left greater than right. Renal US: MPRESSION: 1. Unremarkable renal ultrasound examination, limited as above. 2. There is moderate ascites. Assessment/Plan Assessment: Ms. 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 She is currently admitted to the telemetry floor and the following is the management: #Right-sided heart failure: Unclear whether severe pulmonary HTN is primary or 2 /2 left heart disease in the setting of rheumatic valvular disease as recent left and right heart catheterization was inconclusive. Blood pressure remains stable off dobutamine drip. Digoxin level this morning therapeutic at 1.5 ( reference range: 0.8-2.0). * Cardiology following. Appreciate their recs. * Continue to monitor strict I/Os and daily weights. * Continue digoxin 0.125 mg PO daily. * Resumed Lasix 40 mg IV daily today given significant amount of weight gain (26 lbs from baseline). Increase as tolerated. * Be cautious with diuresis as patient is very dependent on adequate preload given her RV failure. * Continue metoprolol 25 mg PO BID. * Keep off IV dobutamine drip. * Continue leg elevation and bilateral chin wraps for compression. 600 cc fluid restriction. #RADHA: Creatinine stable to 1.6 today. Most likely etiology is cardiorenal syndrome in the setting of right-sided heart failure and hypotension 2/2 overdiuresis. Renal US unremarkable. * Nephrology following. Appreciate their recs. * Continue to monitor lytes and kidney function. * Monitor off IVF. * Resume Lasix today. * Avoid nephrotoxic agents including NSAIDs and IV contrast. * Avoid CHIN inhibitors and ARBs. * UCx pending, f/u results. 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 * Continue 600 mL fluid restriction. * Tolvaptan 15 mg PO daily STOPPED today as Na level close to normal at 135 and diuresis to begin today. * Follow up repeat BEP tomorrow. #Atrial fibrillation: Remains in atrial fibrillation with well-controlled heart rate. INR has improved to 2.65 today. * Continue metoprolol 25 mg PO BID for rate control. * Hold warfarin today. * Continue to check INR and resume warfarin at 1 mg daily if INR drops to < 2. #Hypothyroidism: TSH and free T4 WNL. * Continue prior to admission levothyroxine 50 mcg daily. #Pulmonary nodule * Will require follow up with high resolution CT scan once acute problems stabilized * Outpatient sleep study to rule out JV Diet: CHF Diet with 2 g K restriction - Avoid eggs given episode of choking. DVT PPx: Warfarin CODE: FULL Problem List: 1. Right heart failure 2. Acute hypoxemic respiratory failure 3. Supratherapeutic INR 4. RADHA (acute kidney injury) 5. Hyponatremia 6. Pulmonary nodule 7. Moderate to severe pulmonary hypertension 8. Hypothyroidism 9. (HFpEF) heart failure with preserved ejection fraction 10. Atrial fibrillation Pain Ratin Pain Location: n/a Pain Goal: Remain pain free Pain Plan: Tylenol 650 mg PO Q6H PRN for mild pain (scale 1-3) Percocet 1 tab PO Q6H PRN for moderate pain (scale 4-6) Percocet 2 tabs PO Q6H PRN for severe pain (scale 7-10) Tomorrow's Labs & Rationales: BEP to monitor kidney function and lytes in the setting of RADHA and hyponatremia
[2016-11-29 08:47] LABS: PT 27.6 SEC (9.4-12.5)
[2016-11-29 09:02] VITALS: BP 108/70
--- NOTE | 2016-11-29 13:15 | PN- Nephrology ---
Assessment/Plan Assessment: RADHA - presumably 2/2 cardiorenal syndrome and relative hypotension with attempted diuresis (perhaps leading to some ischemic ATN). Her labs from earlier in the admission suggest that she may have been at a more optimal standpoint in terms of her RV pre-load when she started to get aggressively diuresed and her blood pressure significant dropped - hence why her Na went down and creatinine went up. Her labs improved. Now would be an ideal time to try and carefully diurese. Hyponatremia - Improved with tolvaptan. Now that her sodium has normalized, I think that it's worth holding her tolvaptan and keeping her on strict fluid restriction. Suggestion: -Would stop tolvaptan (I d/c'd the order) -Lasix 40mg IV daily -Would check UCx -Cont daily weights and accurate I's/O's Subjective Subjective: Pt reports overall feeling pretty well Na 128->135 SCr 1.5->1.6 Albumin 3.4 No UCx Started on IV lasix this AM Weight down to 190 (?) Objective Vital Signs and I&Os Vital Signs Date Time Temp Pulse Resp B/P Pulse O2 O2 Flow FiO2 Ox Delivery Rate 11/29 0913 70 108/70 11/29 0902 96.9 70 20 108/70 97 Nasal 5.0L Cannula 11/29 0800 Nasal 5.0L Cannula 11/29 0000 94 Nasal 5.0L Cannula 11/28 2325 97.6 116 22 136/86 93 Nasal 5.0L Cannula 11/28 2233 128 136/86 11/28 1655 80 116/64 11/28 1643 97.8 74 17 110/70 97 Nasal 5.0L Cannula 11/28 1600 Nasal 5.0L Cannula Intake & Output 11/29 1600 11/29 0400 11/28 1600 11/28 0400 11/27 1600 11/27 0400 Intake Total 120 40 440 200 290 440 Output Total 019 383 4120 560 550 375 Balance -180 -260 -760 -360 -260 65 Intake, Oral 120 40 440 200 290 440 Number 1 1 Bowel Movements Output, Urine 819 517 4490 560 550 375 Patient 190 lb 202 lb Weight Physical Exam: Gen - OK appearing HEENT - JVP up CV - RRR Chest - decreased breath sounds at bases with some bibasilar crackles Abd - distended Ext - 2+ edema Neuro - AOX3 Current Medications: Current Medications Sig/Nicole Start time Last Medication Dose Route Stop Time Status Admin Acetaminophen 650 MG Q6P PRN 11/22 0230 AC PO Bisacodyl 10 MG ONCE PRN 11/26 0800 AC 11/26 MD 0921 Diclofenac Sodium 1 SANDRA Q6-PRN PRN 11/26 1730 AC TOP Digoxin 0.125 MG 1700 11/26 1700 AC 11/28 PO 1655 Ezetimibe 10 MG DAILY 11/22 1000 AC 11/29 PO 0913 Furosemide 40 MG DAILY 11/29 1000 DC IV Furosemide 40 MG 0811/29 0800 AC 11/29 IV 0912 Gemfibrozil 600 MG BID 11/22 1000 AC 11/29 PO 0912 Levothyroxine Sodium 0.05 MG DAILY AC 11/22 0700 AC 11/29 PO 0655 Metoprolol Tartrate 25 MG BID 11/26 2200 AC 11/29 PO 0913 Oxycodone/ 1 TAB Q6P PRN 11/22 0230 AC Acetaminophen PO Oxycodone/ 2 TAB Q6P PRN 11/22 0230 AC 11/28 Acetaminophen PO 2227 Oxymetazoline HCl 2 SPRAY BID PRN 11/27 1000 AC DAO Polyethylene Glycol 17 GM DAILY 11/24 2140 AC 11/29 PO 0911 Senna/Docusate Sodium 1 TAB DAILY 11/24 2140 AC 11/29 PO 0913 Tolvaptan 15 MG 1800 11/28 1800 AC 11/28 PO 1655 Results Pertinent Lab Results: Laboratory Tests 11/29 11/28 11/28 0645 1707 1707 Chemistry Sodium (137 - 145 mmol/L) 135 L Potassium (3.5 - 5.1 mmol/L) 5.4 H Chloride (98 - 107 mmol/L) 96 L Carbon Dioxide (22 - 30 mmol/L) 31 H Anion Gap (5 - 16) 7 BUN (7 - 17 mg/dL) 38 H Creatinine (0.5 - 1.0 mg/dL) 1.6 H Estimated GFR (>60 ml/min) 31 L BUN/Creatinine Ratio (7 - 25 %) 23.8 Coagulation PT (9.4 - 12.5 SEC) 27.6 H INR (0.90 - 1.19) 2.65 H Toxicology Digoxin (0.8 - 2.0 ng/mL) 1.5 Urines Urine Color (YEL,AMB,STR) STRAW Urine Clarity (CLEAR) CLEAR Urine pH (5.0 - 8.0) 6.0 Ur Specific [place] (1.001 - 1.035) 1.010 Urine Protein (NEG,<30 MG/DL) NEG Urine Ketones (NEG) NEG Urine Nitrite (NEG) NEG Urine Bilirubin (NEG) NEG Urine Urobilinogen (0.1 - 1.0 EU/dl) 0.2 Ur Leukocyte Esterase (NEG) LARGE H Ur Microscopic SEDIMENT EXAMINED Urine RBC (0 - 5 /HPF) 10-15 H Urine WBC (0 - 2 /HPF) 15-25 H Ur Epithelial Cells (NONE,FEW) RARE Urine Bacteria (NEG/NONE) FEW H Urine Hemoglobin (NEG) LARGE H Ur Random Creatinine (mg/dL) 30.8 U Random Total Protein (0 - 12 mg/dL) 5.9 Protein/Creatinin Ratio (< 0.2) 0.10 Urine Glucose (N MG/DL) NEG 11/28 11/27 0544 1604 Chemistry Sodium (137 - 145 mmol/L) 128 L Potassium (3.5 - 5.1 mmol/L) 5.0 Chloride (98 - 107 mmol/L) 91 L Carbon Dioxide (22 - 30 mmol/L) 29 Anion Gap (5 - 16) 9 BUN (7 - 17 mg/dL) 41 H Creatinine (0.5 - 1.0 mg/dL) 1.5 H Estimated GFR (>60 ml/min) 34 L Glucose (65 - 99 mg/dL) 74 Calcium (8.4 - 10.2 mg/dL) 9.0 Phosphorus (2.5 - 4.5 mg/dL) 4.7 H Magnesium (1.6 - 2.3 mg/dL) 2.4 H Total Bilirubin (0.2 - 1.3 mg/dL) 2.0 H AST (14 - 36 U/L) 30 ALT (9 - 52 U/L) 27 Albumin (3.5 - 5.0 g/dL) 3.4 L TSH (0.270 - 4.200 uIU/mL) 1.940 Free T4 (0.78 - 2.44 ng/dL) 1.34 Coagulation PT (9.4 - 12.5 SEC) 30.5 H INR (0.90 - 1.19) 2.94 H Hematology CBC w Diff NO MAN DIFF REQ WBC (4.8 - 10.8 /CUMM) 9.3 RBC (4.20 - 5.40 /CUMM) 4.40 Hgb (12.0 - 16.0 G/DL) 13.4 Hct (37 - 47 %) 41.2 MCV (81.0 - 99.0 FL) 93.8 MCH (27.0 - 31.0 PG) 30.5 RDW (11.5 - 14.5 %) 16.3 H Plt Count (130 - 400 /CUMM) 227 MPV (7.4 - 10.4 FL) 8.4 Gran % (42.2 - 75.2 %) 74.1 Lymphocytes % (20.5 - 51.1 %) 12.0 L Monocytes % (1.7 - 9.3 %) 9.7 H Eosinophils % (0 - 5 %) 3.5 Basophils % (0.0 - 2.0 %) 0.7 Absolute Granulocytes (1.4 - 6.5 /CUMM) 6.9 H Absolute Lymphocytes (1.2 - 3.4 /CUMM) 1.1 L Absolute Monocytes (0.10 - 0.60 /CUMM) 0.9 H Absolute Eosinophils (0.0 - 0.7 /CUMM) 0.3 Absolute Basophils (0.0 - 0.2 /CUMM) 0.1 PUBS MCHC (33.0 - 37.0 G/DL) 32.5 L Toxicology Digoxin (0.8 - 2.0 ng/mL) 1.3 Urines Ur Random Creatinine (mg/dL) 31 U Random Total Protein (0 - 12 mg/dL) 12.6 H Protein/Creatinin Ratio (< 0.2) 0.40 H 11/27 11/27 1604 1351 Urines Urine Color (YEL,AMB,STR) YEL Urine Clarity (CLEAR) CLDY H Urine pH (5.0 - 8.0) 6.0 Ur Specific [place] (1.001 - 1.035) 1.010 Urine Protein (NEG,<30 MG/DL) TRACE H Urine Ketones (NEG) NEG Urine Nitrite (NEG) NEG Urine Bilirubin (NEG) NEG Urine Urobilinogen (0.1 - 1.0 EU/dl) 0.2 Ur Leukocyte Esterase (NEG) LARGE H Ur Microscopic SEDIMENT EXAMINED Urine RBC (0 - 5 /HPF) >75 H Urine WBC (0 - 2 /HPF) > 75 H Ur Epithelial Cells (NONE,FEW) MANY H Urine Hemoglobin (NEG) LARGE H Ur Random Creatinine Cancelled U Random Total Protein Cancelled Urine Glucose (N MG/DL) NEG 11/27 0500 Chemistry Sodium (137 - 145 mmol/L) 126 L Potassium (3.5 - 5.1 mmol/L) 5.3 H Chloride (98 - 107 mmol/L) 89 L Carbon Dioxide (22 - 30 mmol/L) 24 Anion Gap (5 - 16) 13 BUN (7 - 17 mg/dL) 36 H Creatinine (0.5 - 1.0 mg/dL) 1.8 H Estimated GFR (>60 ml/min) 27 L Glucose (65 - 99 mg/dL) 75 Calcium (8.4 - 10.2 mg/dL) 9.5 Phosphorus (2.5 - 4.5 mg/dL) 5.5 H Magnesium (1.6 - 2.3 mg/dL) 2.6 H Total Bilirubin (0.2 - 1.3 mg/dL) 2.5 H AST (14 - 36 U/L) 34 ALT (9 - 52 U/L) 26 Albumin (3.5 - 5.0 g/dL) 3.9 Hematology CBC w Diff NO MAN DIFF REQ WBC (4.8 - 10.8 /CUMM) 8.1 RBC (4.20 - 5.40 /CUMM) 4.98 Hgb (12.0 - 16.0 G/DL) 15.2 Hct (37 - 47 %) 46.7 MCV (81.0 - 99.0 FL) 93.7 MCH (27.0 - 31.0 PG) 30.5 RDW (11.5 - 14.5 %) 15.8 H Plt Count (130 - 400 /CUMM) 205 MPV (7.4 - 10.4 FL) 8.2 Gran % (42.2 - 75.2 %) 70.0 Lymphocytes % (20.5 - 51.1 %) 14.9 L Monocytes % (1.7 - 9.3 %) 11.5 H Eosinophils % (0 - 5 %) 3.0 Basophils % (0.0 - 2.0 %) 0.6 Absolute Granulocytes (1.4 - 6.5 /CUMM) 5.7 Absolute Lymphocytes (1.2 - 3.4 /CUMM) 1.2 Absolute Monocytes (0.10 - 0.60 /CUMM) 0.9 H Absolute Eosinophils (0.0 - 0.7 /CUMM) 0.2 Absolute Basophils (0.0 - 0.2 /CUMM) 0 PUBS MCHC (33.0 - 37.0 G/DL) 32.5 L Toxicology Digoxin (0.8 - 2.0 ng/mL) 1.4 Imaging/Other Studies: US - US-RENAL/KIDNEY EXAMINATION: US RETROPERITONEAL COMPLETE (RENAL) CLINICAL INFORMATION: Elevated creatinine level. COMPARISON: None TECHNIQUE: Real-time imaging of the kidneys and bladder. Examination limited secondary to body habitus, overlapping bowel gas and limited mobility. FINDINGS: RIGHT KIDNEY: 10.2 x 4.6 x 4.1 cm (SAG x AP x TRV). The kidney is normal in size, contour, and echogenicity. Renal cortical thickness is normal. No calculi or focal parenchymal lesions. No hydronephrosis. LEFT KIDNEY: Imaging somewhat limited due to overlapping bowel gas, in particular of the lower pole. 8.0 x 5.1 x 4.1 cm (SAG x AP x TRV). The kidney is normal in size, contour, and echogenicity. Renal cortical thickness is normal. No calculi or focal parenchymal lesions. No hydronephrosis. BLADDER: Decompressed and presently incompletely evaluated with ultrasound. OTHER: There is moderate ascites, extending into the 4 quadrants. IMPRESSION: 1. Unremarkable renal ultrasound examination, limited as above. 2. There is moderate ascites.
[2016-11-29 15:30] VITALS: BP 118/78
--- NOTE | 2016-11-29 16:05 | PN- Cardiology ---
Subjective Subjective: * Patient ambulated today and did much better than pre-admission. * creatinine 1.6 with potassium 5.4 * sodium improved to 135 * INR 2.65 Objective Vital Signs and I&Os Vital Signs Date Time Temp Pulse Resp B/P Pulse O2 O2 Flow FiO2 Ox Delivery Rate 11/29 0913 70 108/70 11/29 0902 96.9 70 20 108/70 97 Nasal 5.0L Cannula 11/29 0800 Nasal 5.0L Cannula 11/29 0000 94 Nasal 5.0L Cannula 11/28 2325 97.6 116 22 136/86 93 Nasal 5.0L Cannula 11/28 2233 128 136/86 11/28 1655 80 116/64 11/28 1643 97.8 74 17 110/70 97 Nasal 5.0L Cannula Intake & Output 11/29 1600 11/29 0800 11/29 0000 11/28 1600 11/28 0800 11/28 0000 Intake Total 237 120 40 240 200 200 Output Total 600 300 300 500 700 560 Balance -363 -180 -260 -260 -500 -360 Intake, Oral 237 120 40 240 200 200 Number 1 Bowel Movements Output, Urine 600 300 300 500 700 560 Patient 190 lb Weight Physical Exam: General: WD/ WN female in NAD; alert and oriented x 3 Neck: positive JVD Heart: irregularly irregular Lungs: clear bilaterally Extremities: 1+ lower extremity edema bilaterally Assessment/Plan Assessment/Plan * This patient will be very dependent on adequate preload due to her RV failure and elevated RV pressures. We will diurese as tolerated by blood pressure. She received lasix 40mg IV today. We will change to 40mg PO tomorrow. Follow daily weight. * Continue digoxin at 0.125mg daily. It is understood that the Tolvaptan will raise the serum level of this drug which we are giving to improve RV contractility. * Hold coumadin for today and begin at 1mg daily tomorrow if INR drops below 2.0. Goal INR is 2.0. * Follow electrolytes * Please follow renal and pulmonary recommendations. Continue telemetry? Yes
[2016-11-29] MEDS ORDERED: COUMADIN1 M1 PO (16:29)
[2016-11-29] MEDS ORDERED: LANOXIN125 MCG PO (16:29)
--- NOTE | 2016-11-29 16:34 | Patient Discharge Instructions ---
Discharge Instructions General Discharge Information You were seen/treated for: Acute respiratory failure Right heart failure Kidney dysfunction Atrial fibrillation Supratherapeutic INR Special Instructions: Please follow up with your PCP within 7 days of discharge. Please follow up with Dr. Portillo within 7 days of discharge. Please follow up with pulmonology Dr. Kruse within 2 weeks of discharge. Please have him follow your pulmonary nodule. Patient needs Outpatient sleep study to rule out JV. Please take all medications as directed. Please return with any worsening of symptoms or concerning symptoms. Please check INR daily and dose warfarin accordingly. Please check digoxin level frequently. Please have a chem 7 done within 1 week and send results to Dr. Harvey Portillo (monitoring Na level). Blood cultures were drawn in hospital because of positive urine culture with staph aureus. Patient is asymptomatic. Would not initiate antibiotic treatment at this point. Please follow up with the results, if blood cultures positive patient will need additional treatment and workup. [facility] Diet Recommended Diet: CHF diet with 2 g K restriction , avoid eggs Activity Activity Self Limited: Yes Acute Coronary Syndrome Inclusion Criteria At DC or during hospital stay patient has or had the following: ACS DIAGNOSIS No Discharge Core Measures Meds if any: Prescribed or Continued at Discharge Meds if any: NOT Prescribed or Continued at Discharge Congestive Heart Failure Inclusion Criteria At DC or during hospital stay patient has or had the following: CHF DIAGNOSIS Yes Discharge Core Measures Meds if any: Prescribed or Continued at Discharge CHIN/ARB for EF <40% No (EF normal) Meds if any: NOT Prescribed or Continued at Discharge Cerebrovascular accident Inclusion Criteria At DC or during hospital stay patient has or had the following: CVA/TIA Diagnosis No Discharge Core Measures Meds if any: Prescribed or Continued at Discharge Meds if any: NOT Prescribed or Continued at Discharge Venous thromboembolism Inclusion Criteria VTE Diagnosis No VTE Type NONE VTE Confirmed by (Test) NONE Discharge Core Measures - Per Current guidelines, there needs to be overlap - treatment for the first 5 days of Warfarin therapy. - If discharged on Warfarin prior to 5 days of - overlap therapy, the patient will need to be - assessed for post discharge needs including - *Post discharge parental anticoagulation - *Warfarin and/or parental anticoagulation education - *Follow up date to check INR post discharge At least 5 days overlap therapy as Inpatient No Meds if any: Prescribed or Continued at Discharge Note: Overlap Therapy is Warfarin and Anticoagulant Meds if any: NOT Prescribed or Continued at Discharge
--- NOTE | 2016-11-30 07:12 | PN- Housestaff ---
Subjective Follow-up For: Atrial fibrillation Right heart failure Likely ILD RADHA Hyponatremia Tele-Events Since Last Visit: Atrial fibrillation with a 3 beat overnight. HR 70-93. Subjective: Patient seen and examined at bedside this AM. She reports her respiratory status has improved though she becomes dyspneic on ambulation. Patient offers no complaints and feels that her clinical condition will be much improved with STR. Review of Systems Constitutional: Denies: chills, fever. EENTM: Denies: visual changes, nasal congestion. Cardiovascular: Reports: peripheral edema. Denies: chest pain, palpitations. Respiratory: Reports: short of breath. Denies: sputum production. Gastrointestinal: Denies: abdominal pain, nausea. Genitourinary: Denies: dysuria, frequency. Musculoskeletal: Denies: joint pain. Skin: Denies: rash. Neurological/Psychological: Denies: confusion, headache. Hematologic/Endocrine: Denies: bruising, bleeding. Immunologic/Allergic: Denies: splenectomy. Objective Last 24 Hrs of Vital Signs/I&O Vital Signs Date Time Temp Pulse Resp B/P Pulse O2 O2 Flow FiO2 Ox Delivery Rate 11/30 0904 77 118/70 11/30 0800 97.4 77 20 118/70 94 Nasal 5.0L Cannula 11/30 0000 93 Nasal 5.0L Cannula 11/29 2042 83 124/80 11/29 1706 81 124/76 11/29 1600 Nasal 5.0L Cannula 11/29 1530 97.4 77 20 118/78 95 Nasal 5.0L Cannula Intake & Output 11/30 1600 11/30 0800 11/30 0000 Intake Total 180 240 Output Total 225 500 Balance -45 -260 Intake, Oral 180 240 Number 1 Bowel Movements Output, Urine 225 500 Patient 191 lb Weight Physical Exam General Appearance: Alert, Oriented X3, Cooperative, No Acute Distress Skin: No Significant Lesion HEENT: Atraumatic, PERRLA, Mucous Membr. moist/pink Neck: Supple, +JVD Lymphatic: Cervical nl Cardiovascular: Irregularly irregular Lungs: Clear to Auscultation, Normal Air Movement Abdomen: Normal Bowel Sounds, Soft, No Tenderness Neurological: Normal Speech, Normal Tone Extremities: No Clubbing, No Cyanosis, 1+ bilateral lower extremity edema Vascular: Pulses Symmetrical Current Medications: Current Medications Sig/Nicole Start time Last Medication Dose Route Stop Time Status Admin Acetaminophen 650 MG Q6P PRN 11/22 0230 AC PO Bisacodyl 10 MG ONCE PRN 11/26 0800 AC 11/26 [place] 0921 Diclofenac Sodium 1 SANDRA Q6-PRN PRN 11/26 1730 AC TOP Digoxin 0.125 MG 1700 11/26 1700 AC 11/29 PO 1706 Ezetimibe 10 MG DAILY 11/22 1000 AC 11/30 PO 0903 Furosemide 40 MG DAILY 11/30 1000 AC 11/30 PO 0903 Furosemide 40 MG 0811/29 0800 DC 11/29 IV 11/29 2300 0912 Gemfibrozil 600 MG BID 11/22 1000 AC 11/30 PO 0903 Levothyroxine Sodium 0.05 MG DAILY AC 11/22 0700 AC 11/30 PO 0615 Metoprolol Tartrate 25 MG BID 11/26 2200 AC 11/30 PO 0904 Oxycodone/ 1 TAB Q6P PRN 11/22 0230 AC 11/30 Acetaminophen PO 0007 Oxycodone/ 2 TAB Q6P PRN 11/22 0230 AC 11/28 Acetaminophen PO 2227 Oxymetazoline HCl 2 SPRAY BID PRN 11/27 1000 AC DAO Patient Medication 1 ED ONE ONE 11/29 1400 DC Teaching ED 11/29 1401 Polyethylene Glycol 17 GM DAILY 11/24 2140 AC 11/30 PO 0906 Senna/Docusate Sodium 1 TAB DAILY 11/24 2140 AC 11/30 PO 0906 Tolvaptan 15 MG 1800 11/28 1800 DC 11/28 PO 1655 Last 24 Hrs of Lab/Juan R Results Last 24 Hrs of Labs/Mics: Laboratory Tests 11/30/16 0635: Anion Gap 10, Estimated GFR 31 L, BUN/Creatinine Ratio 25.0, Digoxin 1.6 Assessment/Plan Assessment: Ms. 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 She is currently admitted to the telemetry floor and the following is the management: #Right-sided heart failure: Unclear whether severe pulmonary HTN is primary or 2 /2 left heart disease in the setting of rheumatic valvular disease as recent left and right heart catheterization was inconclusive. Blood pressure remains stable off dobutamine drip. Digoxin level this morning therapeutic at 1.6 ( reference range: 0.8-2.0). * Cardiology following. Appreciate their recs. * Continue to monitor strict I/Os and daily weights. * Continue digoxin 0.125 mg PO daily. Frequent digoxin checks. * Resumed Lasix 40 mg PO daily today, continue this upon discharge. * Be cautious with diuresis as patient is very dependent on adequate preload given her RV failure. * Continue metoprolol 25 mg PO BID. * Keep off IV dobutamine drip. * Continue leg elevation and bilateral chin wraps for compression. 800 cc fluid restriction. #RADHA: Creatinine stable to 1.6 today. Most likely etiology is cardiorenal syndrome in the setting of right-sided heart failure and hypotension 2/2 overdiuresis. Renal US unremarkable. * Nephrology following. Appreciate their recs. * Continue to monitor lytes and kidney function. * Continue lasix * Avoid nephrotoxic agents including NSAIDs and IV contrast. * Avoid CHIN inhibitors and ARBs. * UCx shows staph aureus however patient asymptomatic without fever, dysuria, foul smelling urine. Blood cultures drawn and patient safe to be discharged off of abx and if BC+ then ream member will call patient and inform her she requires antibiotics. 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 * Continue 800 mL fluid restriction. * Tolvaptan 15 mg PO daily STOPPED as Na level normal and diuresis on board * Follow up repeat BEP in about 7 days after discharge #Atrial fibrillation: Remains in atrial fibrillation with well-controlled heart rate. INR has improved to 2.65 today. * Continue metoprolol 25 mg PO BID for rate control. * Continue to check INR and resume warfarin at 1 mg daily at discharge #Hypothyroidism: TSH and free T4 WNL. * Continue prior to admission levothyroxine 50 mcg daily. #Pulmonary nodule * Will require follow up with high resolution CT scan once acute problems stabilized * Outpatient sleep study to rule out JV Diet: CHF Diet with 2 g K restriction - Avoid eggs given episode of choking. DVT PPx: Warfarin CODE: FULL Problem List: 1. Hyponatremia 2. RADHA (acute kidney injury) 3. Supratherapeutic INR 4. Rheumatic valvular disease 5. Acute hypoxemic respiratory failure 6. Right heart failure 7. COPD (chronic obstructive pulmonary disease) 8. CAD S/P percutaneous coronary angioplasty 9. HLD (hyperlipidemia) Pain Ratin Pain Location: n/a Pain Goal: Remain pain free Pain Plan: Mild pain pathway Tomorrow's Labs & Rationales: Likely discharge today. If note, Electrolytes and INR/Digoxin level required.
[2016-11-30 08:00] VITALS: BP 118/70
--- NOTE | 2016-11-30 08:42 | PN- Cardiology ---
Subjective Subjective: * Breathing is improved although patient continues to feel better sitting up. * atrial fibrillation * creatinine stable at 1.6 * Normal sodium level Objective Vital Signs and I&Os Vital Signs Date Time Temp Pulse Resp B/P Pulse O2 O2 Flow FiO2 Ox Delivery Rate 12/01 799 97.4 77 20 118/70 94 Nasal 5.0L Cannula 11/30 0000 93 Nasal 5.0L Cannula 11/29 2042 83 124/80 11/29 1706 81 124/76 11/29 1600 Nasal 5.0L Cannula 11/29 1530 97.4 77 20 118/78 95 Nasal 5.0L Cannula 11/29 0913 70 108/70 11/29 0902 96.9 70 20 108/70 97 Nasal 5.0L Cannula Intake & Output 11/30 0000 11/29 1600 11/29 0800 11/29 0000 Intake Total 180 240 237 120 40 Output Total 225 500 600 300 300 Balance -45 -260 -363 -180 -260 Intake, Oral 180 240 237 120 40 Number 1 Bowel Movements Output, Urine 225 500 600 300 300 Patient 191 lb 190 lb Weight Physical Exam: General: WD/ WN female in NAD; alert and oriented x 3 Neck: positive JVD Heart: irregularly irregular Lungs: clear bilaterally Extremities: 1+ lower extremity edema bilaterally Assessment/Plan Assessment/Plan * This patient will be very dependent on adequate preload due to her RV failure and elevated RV pressures. We will diurese as tolerated by blood pressure. Continue a modest dose of Lasix at 40mg PO daily. * Continue digoxin at 0.125mg daily. * Patient has a mechanical mitral valve and needs an INR between 2.5 and 3.5. Begin coumadin 1mg po daily and continue to follow her INR. * Okay to discharge to a short term rehab with follow up in the office in one week. Obtain a chem 7 in one week. Continue telemetry? No
--- NOTE | 2016-11-30 09:14 | Discharge Summary ---
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 Ford's office for worsening leg swelling, shortness of breath and 15 lbs weight gain over the past two weeks. Of note, patient was recently admitted to [facility] for decompensated heart failure where she was diuresed. On discharge her diltiazem had been stopped due to bradycardia and valsartan had been stopped due to RADHA. Patient had recently undergone right and left heart catheterization to see if pulmonary HTN is primary or cardiac in origin, which was inconclusive due to technical difficulties, but showed an EF of 55%. On initial presentation to the ED, vitals were remarkable for a high oxygen requirement of 5 L NC. Patient had significant positive JVD, ascites and bilateral lower extremity edema on exam. Labs were remarkable for Na 130, proBNP 5770 and total bilirubin 2.7. CXR showed cardiomegaly with no evidence of pulmonary edema. Patient was initially admitted to the ICU for acute hypoxemic respiratory failure. Below are the issues that were addressed during current admission: #Right-sided heart failure: Patient was felt to have significant volume overload and was diuresed with IV Lasix. She was started on IV dobutamine drip to improve RV contractility while being aggressively diuresed. She maintained a negative fluid balance with improvement of her shortness of breath. Plan was to discontinue the dobutamine drip and transition her to digoxin on day 3 of admission but she became hypotensive upon stopping the drip which was subsequently re-started. Lasix was discontinued as it was felt that patient was overdiuresed, and continued to be held given the rise in her creatinine. It was thought that by overlapping digoxin and the dobutamine drip, the acute drop in blood pressure could be prevented. Thus a dose of digoxin was administered in the evening prior to stopping the dobutamine drip the following day and this time blood pressures were successfully maintained. Digoxin dose was later reduced in half to 0.125 mg PO daily as tolvaptan, which patient was started on hyponatremia, is known to increase digoxin levels. In terms of the etiology of the right-sided heart failure, it is unclear whether it is secondary to interstitial lung disease or left-heart disease in the setting of rheumatic valvular heart disease. After patient was downgraded to telemetry, Blood pressure remains stable off dobutamine drip. Digoxin level this morning therapeutic at 1.6 (reference range: 0.8-2.0). We continued to monitor Strict I's and O's and daily weights. She was maintained on digoxin 0.125 mg PO daily. Initially received IV Lasix which was changed to by mouth 40 mg daily. She was also maintained on metoprolol 25 mg by mouth twice a day. She was initially placed on 600 cc fluid. Fluid restriction was removed on 11/30/16 per cardiology. * Be cautious with diuresis as patient is very dependent on adequate preload * Continue leg elevation and bilateral chin wraps for compression. #RADHA: Creatinine was 0.8 on admission, but gradually trended up to a maximum of 1.8. Most likely etiology is cardiorenal syndrome in the setting of right-sided heart failure and hypotension 2/2 overdiuresis. Renal US was unremarkable. Urinalysis and urine spot protein/creatinine ratio was performed but results were not accurate, perhaps due to poor sample quality. Creatinine stable to 1.6 today. Nephrology was consulted and their recommendations were followed. We monitored lytes and kidney function off IV fluids. * Avoid nephrotoxic agents including NSAIDs and IV contrast. * Avoid CHIN inhibitors and ARBs. #Hyponatremia: Sodium was 130 on admission, but later decreased to a minimum of 119. Nephrology was consulted who felt that this is most likely hypervolemic hyponatremia secondary right-sided heart failure resulting in a high ADH state. Patient was placed on fluid restriction and started on tolvaptan with improvement of Na. Sodium: 137 on 11/30/2016. * Fluid restriction was stopped on 11/30/16 per cardiology. * Tolvaptan 15 mg PO daily was stopped on 11/29/2016 as Na level close to normal at 135 and diuresis was begun on 11/21/2016. * Follow up repeat BEP daily. #Supratherapeutic INR: Patient was taking warfarin 5 mg PO daily with an INR goal of 2.5-3.5 in the setting of her mechanical mitral valve. INR was 3.16 on day 3 of admission and 4 mg of warfarin was given which caused the INR to become severely elevated to 9.52 two days later. Patient had no evidence of bleeding or bruising. Warfarin was held and 5 mg of vitamin K was administered. INR has been gradually trending down. * Today INR:2.22, patient received 0.5 mg of warfarin today. * Goal INR between 2.5 and 3.5 #Atrial fibrillation: Remains in atrial fibrillation with well-controlled heart rate. * Continue metoprolol 25 mg PO BID for rate control. * Continue to check INR dose warfarin accordingly;Goal INR between 2.5 and 3.5. #Hypothyroidism: TSH and free T4 WNL. The patient was maintained on prior to admission levothyroxine 50 mcg daily. #Pulmonary nodule * Will require follow up with high resolution CT scan once acute problems stabilized * Outpatient sleep study to rule out JV #Positive urine culture with staph aureus on 11/28/16: Noted on preliminary report. Susceptibility report pending. Patient is asymptomatic, afebrile, no leukocytosis, no clinical indicators of an infectious process. We'll obtain blood cultures, decision to be made regarding antibiotic therapy/echocardiogram or further workup depending on blood culture results. * Blood culture results needs to be followed as outpatient. Diet: CHF Diet with 2 g K restriction - Avoid eggs given episode of choking. DVT PPx: Warfarin CODE: FULL Allergies: Coded Allergies: cefaclor (ANAPHYLAXIS 11/21/16) rabbit dander (THROAT STARTS TO CLOSE, ITCHY EYES, ITCHY NOSE 11/21/16) Disposition Summary Disposition Principal Diagnosis: Right-sided heart failure Additional Diagnosis: RADHA Hyponatremia Therapeutic INR Atrial fibrillation Thyroidism Pulmonary nodules Discharge Disposition: SNF Discharge Instructions General Discharge Information Code Status: Full Code Patient's Diet: CHF Diet with 2 g K restriction - Avoid eggs given episode of choking. Patient's Activity: As tolerated Follow-Up Instructions/Appts: Please follow up with your PCP within 7 days of discharge. Please follow up with Dr. Ford within 7 days of discharge. Please follow up with pulmonology Dr. Kruse within 2 weeks of discharge. Patient needs Outpatient sleep study to rule out JV. Please check INR daily and dose warfarin accordingly. Please check digoxin level frequently. Please have a chem 7 done within 1 week and send results to Dr. Harvey Ford (monitoring Na level). Blood cultures were drawn in hospital because of positive urine culture with staph aureus. Patient is asymptomatic. Would not initiate antibiotic treatment at this point. Please follow up with the results, if blood cultures positive patient will need additional treatment and workup. Please take all medications as directed. Please return with any worsening of symptoms or concerning symptoms. Medications at Discharge Discharge Medications: Stop taking the following medications: Furosemide (Furosemide) 40 MG TABLET ORAL TWICE DAILY Qty = 60 Metoprolol Tartrate (Metoprolol Tartrate) 100 MG TABLET ORAL TWICE DAILY Qty = 60 Warfarin Sodium (Coumadin) 5 MG TABLET ORAL DAILY Qty = 30 Potassium Chloride (Potassium Chloride) 20 MEQ TAB.ER.PRT ORAL DAILY Qty = 30 Continue taking these medications: Gemfibrozil (Gemfibrozil) 600 MG TABLET 1 Tablet ORAL TWICE DAILY Qty = 60 Comments: Last Taken:11/30/16 Time:9 AM Levothyroxine Sodium (Levothyroxine Sodium) 50 MCG TABLET 50 Microgram ORAL DAILY Qty = 30 Comments: Last Taken: 11/30/16 Time: 6:15 AM Ezetimibe (Zetia) 10 MG TABLET 1 Tablet ORAL DAILY Qty = 90 Comments: Last Taken: 11/30/16 Time: 9 AM Start taking the following new medications: Digoxin (Lanoxin) 125 MCG TABLET 0.125 Milligram ORAL 5 PM Qty = 30 No Refills Metoprolol Tartrate (Metoprolol Tartrate) 25 MG TABLET 25 Milligram ORAL TWICE DAILY Qty = 60 No Refills Comments: Last Taken: 11/30/16 Time: 9 AM Furosemide (Lasix) 40 MG TABLET 40 Milligram ORAL DAILY Qty = 30 No Refills Comments: Last Taken: 11/30/16 Time: 9 AM Warfarin Sodium (Coumadin) 1 MG TABLET 1 Tablet ORAL DAILY Qty = 30 No Refills Comments: Last Taken:11/30/16 Time:330pm Copies To: JONATHAN BAKER,SATHYA FORD MD PhD,HARVEY YANG MD,CATHY
--- NOTE | 2016-11-30 10:05 | PN- Nephrology ---
Assessment/Plan Assessment: RADHA - presumably 2/2 cardiorenal syndrome and relative hypotension with attempted diuresis (perhaps leading to some ischemic ATN). Creatinine is now stable. Hyponatremia - Improved with tolvaptan. Able to stay stable even without tolvaptan. Given her kidney's propensity to hold onto free water (and salt), she may need BID diuretics (to help "wash out" concentration gradient). Suggestion: -No plans for further tolvaptan -Would dose lasix BID (~8am and ~3pm) - given current edema, 40mg PO BID would be reasonable (if SCr gets back to baseline, may be able to reduce dose) -800cc fluid restriction -Needs daily weights at ECF - if increasing, may need to go up on diuretics Subjective Subjective: Na 137 off tolvaptan Given 40mg IV lasix yesterday which has been switched to oral SCr remains stable at 1.6 Weight is 191lbs Pt without specific complaints Objective Vital Signs and I&Os Vital Signs Date Time Temp Pulse Resp B/P Pulse O2 O2 Flow FiO2 Ox Delivery Rate 11/30 0904 77 118/70 11/30 0800 97.4 77 20 118/70 94 Nasal 5.0L Cannula 11/30 0000 93 Nasal 5.0L Cannula 11/29 2042 83 124/80 11/29 1706 81 124/76 11/29 1600 Nasal 5.0L Cannula 11/29 1530 97.4 77 20 118/78 95 Nasal 5.0L Cannula Intake & Output 11/30 1600 11/30 0400 11/29 1600 11/29 0400 11/28 1600 11/28 0400 Intake Total 180 240 357 40 440 200 Output Total 225 500 870 050 8752 560 Balance -45 -260 -543 -260 -760 -360 Intake, Oral 180 240 357 40 440 200 Number 1 1 Bowel Movements Output, Urine 225 500 762 000 4782 560 Patient 191 lb 190 lb Weight Physical Exam: Gen - OK appearing HEENT - JVP up CV - RRR Chest - bibasilar crackles Abd - soft, nontender Ext - legs wrapped, ++edema Neuro - AOX3 Current Medications: Current Medications Sig/Nicole Start time Last Medication Dose Route Stop Time Status Admin Acetaminophen 650 MG Q6P PRN 11/22 0230 AC PO Bisacodyl 10 MG ONCE PRN 11/26 0800 AC 11/26 TN 0921 Diclofenac Sodium 1 SANDRA Q6-PRN PRN 11/26 1730 AC TOP Digoxin 0.125 MG 1700 11/26 1700 AC 11/29 PO 1706 Ezetimibe 10 MG DAILY 11/22 1000 AC 11/30 PO 0903 Furosemide 40 MG DAILY 11/30 1000 AC 11/30 PO 0903 Furosemide 40 MG 0800 11/29 0800 DC 11/29 IV 11/29 2300 0912 Gemfibrozil 600 MG BID 11/22 1000 AC 11/30 PO 0903 Levothyroxine Sodium 0.05 MG DAILY AC 11/22 0700 AC 11/30 PO 0615 Metoprolol Tartrate 25 MG BID 11/26 2200 AC 11/30 PO 0904 Oxycodone/ 1 TAB Q6P PRN 11/22 0230 AC 11/30 Acetaminophen PO 0007 Oxycodone/ 2 TAB Q6P PRN 11/22 0230 AC 11/28 Acetaminophen PO 2227 Oxymetazoline HCl 2 SPRAY BID PRN 11/27 1000 AC DAO Patient Medication 1 ED ONE ONE 11/29 1400 DC Teaching ED 11/29 1401 Polyethylene Glycol 17 GM DAILY 11/24 2140 AC 11/30 PO 0906 Senna/Docusate Sodium 1 TAB DAILY 11/24 2140 AC 11/30 PO 0906 Tolvaptan 15 MG 1800 11/28 1800 DC 11/28 PO 1655 Results Pertinent Lab Results: Laboratory Tests 11/30 11/30 11/29 11/28 0940 0635 0645 1707 Chemistry Sodium (137 - 145 mmol/L) 137 135 L Potassium (3.5 - 5.1 mmol/L) 4.9 5.4 H Chloride (98 - 107 mmol/L) 97 L 96 L Carbon Dioxide (22 - 30 mmol/L) 30 31 H Anion Gap (5 - 16) 10 7 BUN (7 - 17 mg/dL) 40 H 38 H Creatinine (0.5 - 1.0 mg/dL) 1.6 H 1.6 H Estimated GFR (>60 ml/min) 31 L 31 L BUN/Creatinine Ratio (7 - 25 %) 25.0 23.8 Coagulation PT (9.4 - 12.5 SEC) Pending 27.6 H INR (0.90 - 1.19) Pending 2.65 H Toxicology Digoxin (0.8 - 2.0 ng/mL) 1.6 1.5 Urines Ur Random Creatinine (mg/dL) 30.8 U Random Total Protein (0 - 12 mg/dL) 5.9 Protein/Creatinin Ratio (< 0.2) 0.10 11/28 11/28 1707 0544 Chemistry Sodium (137 - 145 mmol/L) 128 L Potassium (3.5 - 5.1 mmol/L) 5.0 Chloride (98 - 107 mmol/L) 91 L Carbon Dioxide (22 - 30 mmol/L) 29 Anion Gap (5 - 16) 9 BUN (7 - 17 mg/dL) 41 H Creatinine (0.5 - 1.0 mg/dL) 1.5 H Estimated GFR (>60 ml/min) 34 L Glucose (65 - 99 mg/dL) 74 Calcium (8.4 - 10.2 mg/dL) 9.0 Phosphorus (2.5 - 4.5 mg/dL) 4.7 H Magnesium (1.6 - 2.3 mg/dL) 2.4 H Total Bilirubin (0.2 - 1.3 mg/dL) 2.0 H AST (14 - 36 U/L) 30 ALT (9 - 52 U/L) 27 Albumin (3.5 - 5.0 g/dL) 3.4 L TSH (0.270 - 4.200 uIU/mL) 1.940 Free T4 (0.78 - 2.44 ng/dL) 1.34 Coagulation PT (9.4 - 12.5 SEC) 30.5 H INR (0.90 - 1.19) 2.94 H Hematology CBC w Diff NO MAN DIFF REQ WBC (4.8 - 10.8 /CUMM) 9.3 RBC (4.20 - 5.40 /CUMM) 4.40 Hgb (12.0 - 16.0 G/DL) 13.4 Hct (37 - 47 %) 41.2 MCV (81.0 - 99.0 FL) 93.8 MCH (27.0 - 31.0 PG) 30.5 RDW (11.5 - 14.5 %) 16.3 H Plt Count (130 - 400 /CUMM) 227 MPV (7.4 - 10.4 FL) 8.4 Gran % (42.2 - 75.2 %) 74.1 Lymphocytes % (20.5 - 51.1 %) 12.0 L Monocytes % (1.7 - 9.3 %) 9.7 H Eosinophils % (0 - 5 %) 3.5 Basophils % (0.0 - 2.0 %) 0.7 Absolute Granulocytes (1.4 - 6.5 /CUMM) 6.9 H Absolute Lymphocytes (1.2 - 3.4 /CUMM) 1.1 L Absolute Monocytes (0.10 - 0.60 /CUMM) 0.9 H Absolute Eosinophils (0.0 - 0.7 /CUMM) 0.3 Absolute Basophils (0.0 - 0.2 /CUMM) 0.1 PUBS MCHC (33.0 - 37.0 G/DL) 32.5 L Toxicology Digoxin (0.8 - 2.0 ng/mL) 1.3 Urines Urine Color (YEL,AMB,STR) STRAW Urine Clarity (CLEAR) CLEAR Urine pH (5.0 - 8.0) 6.0 Ur Specific [place] (1.001 - 1.035) 1.010 Urine Protein (NEG,<30 MG/DL) NEG Urine Ketones (NEG) NEG Urine Nitrite (NEG) NEG Urine Bilirubin (NEG) NEG Urine Urobilinogen (0.1 - 1.0 EU/dl) 0.2 Ur Leukocyte Esterase (NEG) LARGE H Ur Microscopic SEDIMENT EXAMINED Urine RBC (0 - 5 /HPF) 10-15 H Urine WBC (0 - 2 /HPF) 15-25 H Ur Epithelial Cells (NONE,FEW) RARE Urine Bacteria (NEG/NONE) FEW H Urine Hemoglobin (NEG) LARGE H Urine Glucose (N MG/DL) NEG 11/27 11/27 11/27 1604 1604 1351 Urines Urine Color (YEL,AMB,STR) YEL Urine Clarity (CLEAR) CLDY H Urine pH (5.0 - 8.0) 6.0 Ur Specific [place] (1.001 - 1.035) 1.010 Urine Protein (NEG,<30 MG/DL) TRACE H Urine Ketones (NEG) NEG Urine Nitrite (NEG) NEG Urine Bilirubin (NEG) NEG Urine Urobilinogen (0.1 - 1.0 EU/dl) 0.2 Ur Leukocyte Esterase (NEG) LARGE H Ur Microscopic SEDIMENT EXAMINED Urine RBC (0 - 5 /HPF) >75 H Urine WBC (0 - 2 /HPF) > 75 H Ur Epithelial Cells (NONE,FEW) MANY H Urine Hemoglobin (NEG) LARGE H Ur Random Creatinine (mg/dL) 31 Cancelled U Random Total Protein (0 - 12 mg/dL) 12.6 H Cancelled Protein/Creatinin Ratio (< 0.2) 0.40 H Urine Glucose (N MG/DL) NEG Imaging/Other Studies: US - US-RENAL/KIDNEY EXAMINATION: US RETROPERITONEAL COMPLETE (RENAL) CLINICAL INFORMATION: Elevated creatinine level. COMPARISON: None TECHNIQUE: Real-time imaging of the kidneys and bladder. Examination limited secondary to body habitus, overlapping bowel gas and limited mobility. FINDINGS: RIGHT KIDNEY: 10.2 x 4.6 x 4.1 cm (SAG x AP x TRV). The kidney is normal in size, contour, and echogenicity. Renal cortical thickness is normal. No calculi or focal parenchymal lesions. No hydronephrosis. LEFT KIDNEY: Imaging somewhat limited due to overlapping bowel gas, in particular of the lower pole. 8.0 x 5.1 x 4.1 cm (SAG x AP x TRV). The kidney is normal in size, contour, and echogenicity. Renal cortical thickness is normal. No calculi or focal parenchymal lesions. No hydronephrosis. BLADDER: Decompressed and presently incompletely evaluated with ultrasound. OTHER: There is moderate ascites, extending into the 4 quadrants. IMPRESSION: 1. Unremarkable renal ultrasound examination, limited as above. 2. There is moderate ascites. 2. There is moderate ascites.
[2016-11-30 10:46] LABS: PT 23.1 SEC (9.4-12.5)
[2016-11-30] MEDS ORDERED: METOPROLOL TART25 M1 PO (14:35)
[2016-11-30] MEDS ORDERED: LASIX40 M1 PO (14:35)
[2016-11-30 15:50] VITALS: BP 118/70
[2016-11-30 16:21] VITALS: BP 116/78
== END 2016-11-30 16:45 | DRG 291 ==
LOC: ENRESERVDT → ENRESERVTM → ERH 15:49 → CRI 20:56 → ENPENDDIS 20:56 → ERHI 20:56 → CRI 22:37 → 1NO 11-28 13:01
PROVIDERS: Dermatology; Internal Medicine; Physician Assistant Medical; Student in an Organized Health Care Education/Training Program; ADMIT Internal Medicine Interventional Cardiology
DX: I13.0 Hypertensive heart and chronic kidney disease with heart failure and stage 1 through stage 4 chronic kidney disease, or unspecified chronic kidney disease (principal); J96.01 Acute respiratory failure with hypoxia; N17.9 Acute kidney failure, unspecified; J84.9 Interstitial pulmonary disease, unspecified; I07.1 Rheumatic tricuspid insufficiency; E87.1 Hypo-osmolality and hyponatremia; I50.9 Heart failure, unspecified; N18.9 Chronic kidney disease, unspecified; I48.2 Chronic atrial fibrillation; J44.9 Chronic obstructive pulmonary disease, unspecified; I25.10 Atherosclerotic heart disease of native coronary artery without angina pectoris; I05.8 Other rheumatic mitral valve diseases; Z79.01 Long term (current) use of anticoagulants; Z95.5 Presence of coronary angioplasty implant and graft; Z87.891 Personal history of nicotine dependence; E03.9 Hypothyroidism, unspecified; I73.9 Peripheral vascular disease, unspecified; Z95.2 Presence of prosthetic heart valve; E78.5 Hyperlipidemia, unspecified
CPT/HCPCS: 1NP; 87184; CCU; 36415; 76775; 81001; 82436; 82570; 87040; 87086; 87147; 93005; 93010; 93925; 96374; 97110-GO; 97116-GO; 97161-GP; 97530-GO; J0780; J1940; J2405; J7040